=== PATIENT | female | born 1950 | race Caucasian/White ===

== ENCOUNTER 2019-11-06 16:13 | Emergency (ER) | payer MEDICARE, MEDICAID, SELFPAY ==
[2019-11-06 17:03] VITALS: BP 117/72; PULSE 82; RESP 12; TEMP 37.2; O2SAT 97; BMI 28.3
--- NOTE | 2019-11-06 17:10 | XRR_ITS ---
PROCEDURE INFORMATION: Exam: XR Right Hand Exam date and time: 11/06/2019 5:47 PM Age: 69 years old Clinical indication: Injury or trauma; Fall; Initial encounter; Swelling (edema); Hand; Bilateral TECHNIQUE: Imaging protocol: XR Right hand. Views: 3 or more views. COMPARISON: No relevant prior studies available. FINDINGS: Bones/joints: Normal. Soft tissues: Normal. XR/XR hand RT min 3V* [id number] IMPRESSION: No acute findings.
--- NOTE | 2019-11-06 20:07 | ED_ITS ---
HPI - General Adult General: Chief complaint: General Medical Stated complaint: hand swollen, med refill Time Seen by Provider: 11/06/19 19:59 Source: patient Mode of arrival: ambulatory Limitations: no limitations History of Present Illness: HPI narrative: 69 year old female presents to the emergency department for evaluation of right hand swelling and pain. 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 About 2 weeks ago she therefore had a seizure and since then has had her right hand swollen and painful. She came in here for evaluation of that and a refill of her medications. Associated symptoms: Deny dyspnea, headache(s), nausea, rash, palpitations or vomiting Review of Systems General: Reports: 10 or more systems reviewed and unremarkable except in HPI and below Const: Denies: fever(s), chills or body aches Card: Denies: palpitations, irregular heart rhythm, edema or swelling of feet/ankles Resp: Denies: dyspnea, productive cough or non-productive cough GI: Denies: abdominal pain, nausea or vomiting : Denies: flank pain, difficulty voiding, dysuria, urinary frequency, urinary urgency or urinary hesitancy Musc: Reports: extremity pain and other (Right hand pain and swelling) Skin/Breast: Denies: rash, pruritus or erythema Neuro: Denies: headache(s), numbness in extremities or weakness in extremities Endo: Denies: polyuria, polydipsia or tired all the time PFS ED PFSH: Social History (Reviewed 11/06/19 @ 21:55 by Romina Contreras MD, [facility]) Smoking and tobacco status: current every day smoker Physical Exam Const: COMMON NORMALS: no acute distress, average body habitus, patient oriented x3, no limitations, healthy appearing, alert and well nourished HENMT: COMMON NORMALS: normocephalic, atraumatic and moist oral mucous membranes HEAD & SCALP: normocephalic and atraumatic Neck/C-Spine: COMMON NORMALS: no meningeal signs and no JVD Resp: COMMON NORMALS: normal respiratory effort, No retractions, No use of accessory muscles, clear to auscultation bilaterally and percussion normal AUSCULTATION: clear to auscultation bilaterally PERCUSSION: percussion normal Cardio: COMMON NORMALS: no JVD, regular rate, regular rhythm, S1 normal heart sound present, S2 normal heart sound present, No gallops present (Cardio), No clicks present (Cardio), No murmurs present (Cardio), No rub (Cardio) and Peripheral pulses 2+ throughout RATE: regular rate RHYTHM: regular rhythm HEART SOUNDS: S1 normal heart sound present and S2 normal heart sound present PERIPHERAL PULSES: Peripheral pulses 2+ throughout GI: COMMON NORMALS: Normal to inspection, nondistended, normoactive bowel sounds present, Soft to palpation, non-tender, No hepatosplenomegaly present, no masses and no bruits PALPATION: Yes Soft to palpation and Yes No hepatosplenomegaly present : COMMON NORMALS: Yes no CVA tenderness BLADDER/KIDNEY EXAM: Yes no CVA tenderness Back/Pelvis: COMMON NORMALS: no CVA tenderness Extremity: COMMON NORMALS: normal to inspection, full ROM, capillary refill normal, no calf tenderness and no pedal edema RIGHT UPPER EXTREMITY: Yes hand & digits Right hand and digits: Yes inspection (Right hand swollen on the dorsal surface with some old bruising and tenderness noted. She has full range of motion of her hand and fingers.) and Yes neurovascular exam (Two-point discrimination intact. Neurovascular status normal.) Neuro: COMMON NORMALS: patient oriented x3 SENSORIUM/ORIENTATION: Yes alert MENINGEAL SIGNS: Yes no meningeal signs Skin: COMMON NORMALS: no rashes or lesions noted, no wounds, turgor normal, no jaundice, no petechiae and no mottling GENERAL SKIN EXAM: no rashes or lesions noted and turgor normal Course Vital Signs: Vital signs: Vital Signs Temperature 98.1 F 11/06/19 20:46 Pulse Rate 84 11/06/19 20:46 Respiratory Rate 18 11/06/19 20:46 Blood Pressure 146/81 11/06/19 20:46 Pulse Oximetry 97 11/06/19 17:03 MDM - General Adult MDM Narrative: Medical decision making narrative: 69-year-old female patient who presents to the emergency department for evaluation of right hand pain and swelling that happened after a seizure 2 weeks ago. She has a history of posttraumatic seizure for several decades and it is well controlled with pheno nette, however she has been out of her medications and that caused the seizures. X-ray of her right hand was negative for fracture or dislocation and she is sent home with a splint. Antiepileptic and antihypertensive medication were filled. She was also given a few days supply of pain medication due to the amount of swelling and pain in her right hand. Medical Records: Attestation: I reviewed the patient's medical records. Imaging Data^: Xray Ortho: Radiologist's impression: [address] [place] [address] XRay Report Signed Patient: Jae Russell #: [id number] : 8Acct#:[id number] Age/Sex: 69 / FADM Date: 11/06/19 Loc: ERRoom/Bed: Attending Dr: Ordering Provider/Ordering MD: Romina Contreras MD, [facility] Date of Service: 11/06/19 Procedure(s): XR hand RT min 3V* [id number] Accession Number(s): [id number] Report Number: [id number] PROCEDURE INFORMATION: Exam: XR Right Hand Exam date and time: 11/06/2019 5:47 PM Age: 69 years old Clinical indication: Injury or trauma; Fall; Initial encounter; Swelling (edema); Hand; Bilateral TECHNIQUE: Imaging protocol: XR Right hand. Views: 3 or more views. COMPARISON: No relevant prior studies available. FINDINGS: Bones/joints: Normal. Soft tissues: Normal. XR/XR hand RT min 3V* [id number] IMPRESSION: No acute findings. Dictated By:Hank Wilcox MD Signed By:Hank Wilcox MDSigned Date/Time:11/06/191821 DD/ 19 Discharge Plan Discharge Patient Disposition: Home, Self-Care Clinical Impression: Seizure disorder, Essential hypertension Hand sprain Qualifiers: Encounter type: initial encounter Laterality: right Qualified Code(s): S63.91XA - Sprain of unspecified part of right wrist and hand, initial encounter Condition: Stable Prescriptions: New phenobarbital 97.2 mg tablet 48.6 mg PO BID Qty: 60 RF: 0 Bevier 5-325 mg tablet 1 tab PO Q8H PRN (Reason: pain) Qty: 14 RF: 0 clonidine HCl 0.1 mg tablet 0.1 mg PO TID Qty: 90 RF: 0 Discharge Orders: Discharge Order (Routine); Ordered 11/06/19 Ordered By: Romina Contreras Patient Instructions: Hand Sprain (ED), Hypertension (ED), Seizures Activity Restrictions/Additional Instructions: Return for any new or worsening symptoms. Use the splint as needed to reduce swelling. Elevate your hand to reduce swelling. Take ibuprofen as needed for pain or swelling. Use the pain medicine as needed for severe pain. Follow-up with your primary care provider within 1 week. Discharge Date/Time: 11/06/19 21:07 Coding Level of Care Code ED Diving Judge for Sienna Mckeon
[2019-11-06] MEDS: PHENobarbital 32.4 mg Tablet 97.2 MG PO (20:38)
[2019-11-06] MEDS: HYDROcodone-acetaminophen 5-325 mg Tablet 1 TAB PO (20:45)
[2019-11-06 20:46] VITALS: BP 146/81; PULSE 84; RESP 18; TEMP 36.7
== END 2019-11-06 21:07 | disposition home or self-care (01) ==
PROVIDERS: Emergency Provider Family Medicine
DX: S63.91XA Sprain of unspecified part of right wrist and hand, initial encounter (principal); I10 Essential (primary) hypertension; G40.909 Epilepsy, unspecified, not intractable, without status epilepticus; X58.XXXA Exposure to other specified factors, initial encounter; F17.210 Nicotine dependence, cigarettes, uncomplicated
CPT/HCPCS: 12345; 29125; 73130; 99281; 99283

== ENCOUNTER 2019-11-08 18:26 | Inpatient (IN) | payer MEDICARE, MEDICAID, SELFPAY ==
[2019-11-08] VITALS (56 sets, daily range): BP systolic 75–131; BP diastolic 45–65; PULSE 66–94; RESP 12–31; TEMP 36.9; O2SAT 71–98; BMI 31.8
--- NOTE | 2019-11-08 18:38 | ECG_ITS ---
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 Measurements Intervals [place] Rate: 66 P: 65 [place]: 170 QRS: -30 QRSD: 135 T: -4 QT: 426 QTc: 449 Interpretive Statements SINUS RHYTHM BORDERLINE LEFT AXIS DEVIATION [QRS AXIS < -20] RIGHT BUNDLE BRANCH BLOCK [120+ ms QRS DURATION, UPRIGHT V1, 40+ ms S IN I/aVL/V4/V5/V6] VOLTAGE CRITERIA FOR LVH [MEETS CRITERIA IN ONE OF: R(aVL), S(V1), R(V5), R(V5/V6)+S(V1)] No previous ECG available for comparison Electronically Signed On 11-09-2019 9:39:28 CDT by Navneet Cronin M.D. [id number] f
--- NOTE | 2019-11-08 18:39 | XR_ITS ---
WS: [id number] CHEST XRAY TECHNIQUE: Portable chest. CLINICAL INFORMATION: overdose COMPARISON: None. FINDINGS: Heart: Normal cardiac silhouette. Lungs: Small left pleural effusion. Elevation left hemidiaphragm with volume loss left lower lobe. Le ft basilar infiltrate/atelectasis. Bones: Chronic healed right rib fractures. Surgical clips at the GE junction. XR/XR chest 1V portable [id number] IMPRESSION: 1. Small left pleural effusion with left lower lobe infiltrate/atelectasis. Vo lume loss left lower lobe. 2. Right lung is well aerated.
[2019-11-08] MEDS: sodium chloride 0.9% 1,000 ML 999 ML IV ×2 (18:40→20:30)
--- NOTE | 2019-11-08 18:51 | W.ED.OVERDOS ---
HPI - Overdose General: Chief Complaint: Overdose Stated Complaint: OVERDOSE Time Seen by Provider: 11/08/19 18:31 History of Present Illness: HPI Narrative: Patient is a 69 year old female patient presenting with an overdose of her medications. She reports that she took pills - too many - she says. At first she can tell me when she took them and then she told me yesterday. She has 2 prescription bottles, 1 for phenobarbital, 97.2 mg tablets. There were 60 prescribed and 26 tablets are missing. She also had a prescription bottle for clonidine 0.1 mg tablets. The prescription was for 90 and 23 of those are missing. The prescriptions were given from the ER yesterday and she was not discharged here until after 9 PM. Presumably she could not have filled the prescriptions any earlier than this morning. EMS reports that she is staying at the [facility]. It is not known to me how her overdose came to the attention of EMS. The patient states that she took the pills because she feels terrible about having seizures. She had a head injury in the past and her seizures are presumably posttraumatic. She is very argumentative and angry and will not provide me with any straight answers. There is also a small bottle of ibuprofen tablets which is empty. Per the ER chart from yesterday she presented with hand pain and swelling after having had a seizure. At that time she told the doctor she been without her phenobarbital for at least 2 weeks. Review of Systems General: Reports: ROS unobtainable due to mental status [facility] ED PFSH: Medical History Seizure disorder Surgical History H/O: hysterectomy S/P breast lumpectomy Family History Denies family history of Lung disease Hypertension Social History Smoking and tobacco status: heavy tobacco smoker cigarettes [ Other cigarette details: 1 pack/day ] Alcohol intake: never Substance/Drug Use: never Household members: spouse Housing: House Physical Exam Const: EXAM LIMITATIONS: behavioral limitations GENERAL APPEARANCE: disheveled ORIENTATION/CONSCIOUSNESS: Yes awake and Yes Other orientation findings (Uncooperative) HENMT: HEAD & SCALP: other (Deformity to the right temporal area consistent with prior head injury and surgery.) Eye: GENERAL EYE: appearance normal, both eyes and all related structures Neck/C-Spine: COMMON NORMALS: supple, no meningeal signs and no JVD Chest: COMMONS NORMALS: normal inspection of the chest Resp: COMMON NORMALS: normal respiratory effort, No use of accessory muscles and clear to auscultation bilaterally AUSCULTATION: clear to auscultation bilaterally Cardio: COMMON NORMALS: no JVD, regular rate, regular rhythm and No murmurs present (Cardio) RATE: regular rate RHYTHM: regular rhythm GI: COMMON NORMALS: Normal to inspection, nondistended, normoactive bowel sounds present, Soft to palpation and non-tender INSPECTION: Yes normal to inspection AUSCULTATION: Yes normoactive bowel sounds PALPATION: Yes Soft to palpation Back/Pelvis: COMMON NORMALS: thoracic and lumbar spine normal to inspection Extremity: GENERAL: Yes normal exam except as noted RIGHT UPPER EXTREMITY: Yes hand & digits (Swelling and tenderness) Neuro: MENINGEAL SIGNS: Yes no meningeal signs SPEECH: speech normal Psych: APPEARANCE: Yes disheveled ATTITUDE: Yes Belligerent attititude/behavior present MOOD & AFFECT: Yes irritable and Yes hostile affect THOUGHT CONTENT: Yes Suicidality present Skin: COMMON NORMALS: no rashes or lesions noted and turgor normal GENERAL SKIN EXAM: no rashes or lesions noted and turgor normal Course ED course: Patient remained fairly asymptomatic while in the ED. She did never become sedated. Her blood pressure was soft at times in the 90s. This would respond to fluids and came up to 1 10-1 20. It dropped again into the 90s and she was given another liter of fluid. For consultation with poison control they recommended fluids and then dopamine for refractory hypotension or bradycardia. Her heart rate has remained normal in the 70s. She was agitated and irate and did not want to stay in the hospital. Due to her irrational behavior and suicidal ideation I put her on a 96-hour hold and will admit her to the hospitalist to the ICU. Vital Signs: Vital signs: Vital Signs Temperature 98.4 F 11/08/19 23:33 Pulse Rate 81 11/09/19 12:00 Respiratory Rate 16 11/09/19 12:00 Blood Pressure 131/73 11/09/19 12:00 Pulse Oximetry 95 11/09/19 08:00 MDM - Overdose Lab Data: Labs: Lab Results 11/08/19 11/08/19 11/08/19 Range/Units 18:34 18:34 19:05 WBC 9.8 (4.0-10.0) 10^3/ uL RBC 3.10 L (4.1-5.3) 10^6/u L Hgb 10.1 L (11.5-15.3) g/dL Hct 31.6 L (37.0-47.0) % MCV 101.9 H (81-99) fL MCH 32.6 (28.0-34.0) pg MCHC 32.0 (30.0-36.0) g/dL RDW 18.1 H (12.1-15.1) % Plt Count 330 (130-400) 10^3/c mm MPV 10.9 H (7.4-10.4) fL Neut % (Auto) 44.2 % Lymph % (Auto) 32.2 % [place] % (Auto) 18.6 % Eos % (Auto) 4.2 % Baso % (Auto) 0.4 % Neut # (Auto) 4.3 (1.8-7.7) 10^3/u L Lymph # (Auto) 3.2 (0.8-4.8) 10^3/u L [place] # (Auto) 1.8 H (0.2-0.9) 10^3/u L Eos # (Auto) 0.4 (0.0-0.8) 10^3/u L Baso # (Auto) 0.0 (0.0-0.1) 10^3/u L Nucleated RBC % (a uto) 0 % Nucleated RBCs # 0.0 /100WBC Specimen Type Arterial Sample Site Radial, left ABG pH 7.35 (7.35-7.45) ABG pCO2 37.4 (35-45) mmHg ABG pO2 87.3 (80.0-100.0) mmH g ABG HCO3 20.7 L (22-26) mmol/L ABG Base Excess -4.5 L (-2.0-2.0) mmol/ L Brenden Test Pos Hematocrit 27.6 L (37-47) % O2 Delivery Device Nc O2 Liters/Min 1.0 % Mail Clerks Supervisor ID [email or web address] Sodium (136-145) mmol/L Potassium (3.5-5.1) mmol/L Chloride (98-107) mmol/L Carbon Dioxide (22-29) mmol/L Anion Gap (5-19) BUN (8-23) mg/dL Creatinine (0.5-0.9) mg/dL Glucose (65-115) mg/dL Calculated Osmolal ity (285-295) mOsm/k g Lactate 1.1 (0.5-2.2) mmol/L Calcium (8.5-10.5) mg/dL Total Bilirubin (0.15-1.2) mg/dL AST (0-32) U/L ALT (0-33) U/L Alkaline Phosphata se (35-105) IU/L Total Protein (6.6-8.7) g/dL Albumin (3.5-5.2) g/dL Globulin (1.3-4.6) g/dL Vitamin B12 (232-1245) pg/mL Folate (4.8-37.3) ng/mL Urine Color (Yellow) Urine Appearance (CLEAR) Urine pH (5-7) Ur Specific Gravit y (1.005-1.030) Urine Protein (Negative) Urine Glucose (UA) (Normal) Urine Ketones (Negative) Urine Blood (Negative) Urine Nitrate (Negative) Urine Bilirubin (NEGATIVE) Urine Urobilinogen (Negative) mg/dL Ur Leukocyte Stacey ase (Negative) Urine RBC (0-2) /hpf Urine WBC (0-5) /hpf Ur Squamous Epith Cells (0-5) Amorphous Sediment Urine Bacteria (NONE) Hyaline Casts Urine Mucus Salicylates (3-10) mg/dL Urine Opiates Scre en (Negative) ng/mL Acetaminophen (10-30) ug/mL Ur Barbiturates Sc reen (Negative) ng/mL Ur Phencyclidine S crn (Negative) ng/mL Ur Amphetamines Sc reen (Negative) ng/mL U Benzodiazepines Scrn (Negative) ng/mL Urine Cocaine Scre en (Negative) ng/mL U Marijuana (THC) Screen (Negative) ng/mL Ethyl Alcohol (0-10) mg/dL 11/08/19 11/08/19 11/08/19 Range/Units 19:05 19:05 19:05 WBC (4.0-10.0) 10^3/ uL RBC (4.1-5.3) 10^6/u L Hgb (11.5-15.3) g/dL Hct (37.0-47.0) % MCV (81-99) fL MCH (28.0-34.0) pg MCHC (30.0-36.0) g/dL RDW (12.1-15.1) % Plt Count (130-400) 10^3/c mm MPV (7.4-10.4) fL Neut % (Auto) % Lymph % (Auto) % [place] % (Auto) % Eos % (Auto) % Baso % (Auto) % Neut # (Auto) (1.8-7.7) 10^3/u L Lymph # (Auto) (0.8-4.8) 10^3/u L [place] # (Auto) (0.2-0.9) 10^3/u L Eos # (Auto) (0.0-0.8) 10^3/u L Baso # (Auto) (0.0-0.1) 10^3/u L Nucleated RBC % (a uto) % Nucleated RBCs # /100WBC Specimen Type Sample Site ABG pH (7.35-7.45) ABG pCO2 (35-45) mmHg ABG pO2 (80.0-100.0) mmH g ABG HCO3 (22-26) mmol/L ABG Base Excess (-2.0-2.0) mmol/ L Brenden Test Hematocrit (37-47) % O2 Delivery Device O2 Liters/Min % Mail Clerks Supervisor ID Sodium 139 (136-145) mmol/L Potassium 4.5 (3.5-5.1) mmol/L Chloride 108 H (98-107) mmol/L Carbon Dioxide 19 L (22-29) mmol/L Anion Gap 16.5 (5-19) BUN 24 H (8-23) mg/dL Creatinine 0.5 (0.5-0.9) mg/dL Glucose 90 (65-115) mg/dL Calculated Osmolal ity 284 L (285-295) mOsm/k g Lactate (0.5-2.2) mmol/L Calcium 8.8 (8.5-10.5) mg/dL Total Bilirubin 0.2 (0.15-1.2) mg/dL AST 16 (0-32) U/L ALT 13 (0-33) U/L Alkaline Phosphata se 119 H (35-105) IU/L Total Protein 5.8 L (6.6-8.7) g/dL Albumin 2.9 L (3.5-5.2) g/dL Globulin 2.9 (1.3-4.6) g/dL Vitamin B12 239 (232-1245) pg/mL Folate 11.0 (4.8-37.3) ng/mL Urine Color (Yellow) Urine Appearance (CLEAR) Urine pH (5-7) Ur Specific Gravit y (1.005-1.030) Urine Protein (Negative) Urine Glucose (UA) (Normal) Urine Ketones (Negative) Urine Blood (Negative) Urine Nitrate (Negative) Urine Bilirubin (NEGATIVE) Urine Urobilinogen (Negative) mg/dL Ur Leukocyte Stacey ase (Negative) Urine RBC (0-2) /hpf Urine WBC (0-5) /hpf Ur Squamous Epith Cells (0-5) Amorphous Sediment Urine Bacteria (NONE) Hyaline Casts Urine Mucus Salicylates < 0.3 L (3-10) mg/dL Urine Opiates Scre en (Negative) ng/mL Acetaminophen < 5.0 L (10-30) ug/mL Ur Barbiturates Sc reen (Negative) ng/mL Ur Phencyclidine S crn (Negative) ng/mL Ur Amphetamines Sc reen (Negative) ng/mL U Benzodiazepines Scrn (Negative) ng/mL Urine Cocaine Scre en (Negative) ng/mL U Marijuana (THC) Screen (Negative) ng/mL Ethyl Alcohol < 10 (0-10) mg/dL 11/08/19 11/08/19 Range/Units 19:53 19:53 WBC (4.0-10.0) 10^3/ uL RBC (4.1-5.3) 10^6/u L Hgb (11.5-15.3) g/dL Hct (37.0-47.0) % MCV (81-99) fL MCH (28.0-34.0) pg MCHC (30.0-36.0) g/dL RDW (12.1-15.1) % Plt Count (130-400) 10^3/c mm MPV (7.4-10.4) fL Neut % (Auto) % Lymph % (Auto) % [place] % (Auto) % Eos % (Auto) % Baso % (Auto) % Neut # (Auto) (1.8-7.7) 10^3/u L Lymph # (Auto) (0.8-4.8) 10^3/u L [place] # (Auto) (0.2-0.9) 10^3/u L Eos # (Auto) (0.0-0.8) 10^3/u L Baso # (Auto) (0.0-0.1) 10^3/u L Nucleated RBC % (a uto) % Nucleated RBCs # /100WBC Specimen Type Sample Site ABG pH (7.35-7.45) ABG pCO2 (35-45) mmHg ABG pO2 (80.0-100.0) mmH g ABG HCO3 (22-26) mmol/L ABG Base Excess (-2.0-2.0) mmol/ L Brenden Test Hematocrit (37-47) % O2 Delivery Device O2 Liters/Min % Mail Clerks Supervisor ID Sodium (136-145) mmol/L Potassium (3.5-5.1) mmol/L Chloride (98-107) mmol/L Carbon Dioxide (22-29) mmol/L Anion Gap (5-19) BUN (8-23) mg/dL Creatinine (0.5-0.9) mg/dL Glucose (65-115) mg/dL Calculated Osmolal ity (285-295) mOsm/k g Lactate (0.5-2.2) mmol/L Calcium (8.5-10.5) mg/dL Total Bilirubin (0.15-1.2) mg/dL AST (0-32) U/L ALT (0-33) U/L Alkaline Phosphata se (35-105) IU/L Total Protein (6.6-8.7) g/dL Albumin (3.5-5.2) g/dL Globulin (1.3-4.6) g/dL Vitamin B12 (232-1245) pg/mL Folate (4.8-37.3) ng/mL Urine Color Straw (Yellow) Urine Appearance Sl hazy (CLEAR) Urine pH 5 (5-7) Ur Specific Gravit y 1.020 (1.005-1.030) Urine Protein Neg (Negative) Urine Glucose (UA) Norm (Normal) Urine Ketones Negative (Negative) Urine Blood Neg (Negative) Urine Nitrate Negative (Negative) Urine Bilirubin Neg (NEGATIVE) Urine Urobilinogen Norm (Negative) mg/dL Ur Leukocyte Stacey ase 1+ H (Negative) Urine RBC 0-4 H (0-2) /hpf Urine WBC 5-10 H (0-5) /hpf Ur Squamous Epith Cells 15-25 H (0-5) Amorphous Sediment Not Reportable Urine Bacteria 2+ H (NONE) Hyaline Casts 0-4 H Urine Mucus Trace Salicylates (3-10) mg/dL Urine Opiates Scre en Negative (Negative) ng/mL Acetaminophen (10-30) ug/mL Ur Barbiturates Sc reen Positive H (Negative) ng/mL Ur Phencyclidine S crn Negative (Negative) ng/mL Ur Amphetamines Sc reen Negative (Negative) ng/mL U Benzodiazepines Scrn Negative (Negative) ng/mL Urine Cocaine Scre en Negative (Negative) ng/mL U Marijuana (THC) Screen Negative (Negative) ng/mL Ethyl Alcohol (0-10) mg/dL Discharge Plan Discharge Admit Provider: Sterling Denise Discharge Date/Time: 11/08/19 22:38 Coding Level of Care Code ED [employer] for [employer] Fwd Exam Comprehensive
[2019-11-08 18:53] LABS: Basophils % 0.4 %; Eosinophils # 0.4 10^3/uL (0.0-0.8); Eosinophils % 4.2 %; Hematocrit 31.6 % (37.0-47.0); Hemoglobin 10.1 g/dL (11.5-15.3); Lymphocytes # 3.2 10^3/uL (0.8-4.8); Lymphocytes % 32.2 %; Mean Corpuscular Hemoglobin 32.6 pg (28.0-34.0); Mean Corpuscular Volume 101.9 fL (81-99); Mean Platelet Volume 10.9 fL (7.4-10.4); Monocytes # 1.8 10^3/uL (0.2-0.9); Monocytes % 18.6 %; Neutrophils # 4.3 10^3/uL (1.8-7.7); Neutrophils % 44.2 %; Nucleated Red Blood Cells % 0 %; Platelet Count 330 10^3/cmm (130-400); Red Cell Distribution Width 18.1 % (12.1-15.1); White Blood Count 9.8 10^3/uL (4.0-10.0)
[2019-11-08 19:04] LABS: Lactate (Lactic Acid level) 1.1 mmol/L (0.5-2.2)
--- NOTE | 2019-11-08 19:06 | PC.NURSE ---
Report received from ENOC Vasquez and care transferred to ENOC Hansen
[2019-11-08 19:13] LABS: ABG PCO2 37.4 mmHg (35-45); ABG PH Result 7.35 (7.35-7.45); Arterial Blood Gas Hematocrit 27.6 % (37-47); Base Excess ABG -4.5 mmol/L (-2.0-2.0); Blood Gas Allen Test Pos; Blood Gas Sample Site Radial, left; Blood Gas Sample Type Arterial; HCO3 ABG 20.7 mmol/L (22-26); Oxygen Device NC; PO2 ABG 87.3 mmHg (80.0-100.0)
[2019-11-08 19:38] LABS: Alanine Aminotransferase 13 U/L (0-33); Albumin Level 2.9 g/dL (3.5-5.2); Alkaline Phosphatase 119 IU/L (35-105); Anion Gap 16.5 (5-19); Blood Urea Nitrogen 24 mg/dL (8-23); Calcium 8.8 mg/dL (8.5-10.5); Carbon Dioxide 19 mmol/L (22-29); Chloride 108 mmol/L (98-107); Globulin 2.9 g/dL (1.3-4.6); Glucose 90 mg/dL (65-115); Osmolality Calculated 284 mOsm/kg (285-295); Potassium 4.5 mmol/L (3.5-5.1); Sodium 139 mmol/L (136-145); Total Bilirubin 0.2 mg/dL (0.15-1.2); Total Protein 5.8 g/dL (6.6-8.7)
[2019-11-08 19:44] LABS: Acetaminophen < 5.0 ug/mL (10-30); Alcohol Level < 10 mg/dL (0-10); Aspartate Amino Transferase 16 U/L (0-32); Salicylate < 0.3 mg/dL (3-10)
--- NOTE | 2019-11-08 19:55 | PC.NURSE ---
patient offered jello or pudding per approval by HCP when requesting for food. Patient refused food options offered by nurse.
[2019-11-08 20:16] LABS: Amphetamines Screen Urine Negative (Negative); Barbiturates Screen Urine Positive (Negative); Benzodiazepines Screen Urine Negative (Negative); Cocaine Screen Urine Negative (Negative); Opiate Screen Urine Negative (Negative); PCP Screen Urine Negative (Negative); THC Screen Urine Negative (Negative)
[2019-11-08 20:17] LABS: Add Urine Microscopic? YES; Bilirubin Urine Neg (NEGATIVE); Blood Urine Neg (Negative); Glucose Urine UA Norm (Normal); Ketones Urine Negative (Negative); Leukocyte Esterase Urine 1+ (Negative); Nitrate Urine Negative (Negative); Protein Urine Neg (Negative); Urine Appearance SL Hazy (CLEAR); Urine Color Straw (Yellow); Urobilinogen Urine Norm (Negative); pH Urine 5 (5-7)
[2019-11-08 20:19] LABS: RBC Urine 0-4 /hpf (0-2); Squamous Epithelial Cell Urine 15-25 (0-5)
[2019-11-08 20:20] LABS: Add Urine Culture? No; Bacteria Urine 2+; Hyaline Casts Urine 0-4; Mucus Urine TRACE
[2019-11-08] MEDS: ziprasidone 20 mg/mL SDV 10 MG IM (20:30)
--- NOTE | 2019-11-08 20:37 | PC.NURSE ---
update given to Aiyana @ poison control
--- NOTE | 2019-11-08 20:55 | P.HP_ITS ---
Providers/Chief Complaint Chief Complaint: OVERDOSE History of Present Illness Dian Russell is a 69 year old female who has history of seizure was brought in by EMS after drug overdose at home. Patient is stating that she has not been taking any antiepileptic medications for quite a while, lately she experienced 6 grand mal seizures at home, she was very frustrated about her medical problems and in order to end her life she took 26 tablets of phenobarbital and 23 tablets of clonidine. She is not a good historian, she is not cooperating to give us more information. At the time of my evaluation she is not complaining of any new pain, no active seizures, her blood pressure is 129 systolic and heart rate ranging between 65 to 70s. Initially in the ER she was hypotensive and was given normal saline. Poison control recommended fluid resuscitation and use of dopamine if needed be cause of clonidine use. He received a dose of ziprasidone in the ER for hyperactive delirium. Diagnostic work-up did not reveal any acute remarkable abnormality other than macrocytic anemia, do not have previous hemoglobin to compare her baseline. No previous information in old records as well Review of Systems Const: Reports: chills and fatigue; Denies: fever(s) or body aches Eyes: Denies: change in vision ENMT: Denies: throat pain Card: Denies: chest pain Resp: Denies: dyspnea GI: Denies: abdominal pain : Denies: flank pain Musc: Denies: neck pain Skin/Breast: Denies: rash Neuro: Denies: headache(s) Psych: Reports: anxiety, depression, mood swings and suicidal ideation Endo: Denies: polyuria Talat/Lymph: Denies: easy bruising All/Imm: Denies: urticaria Medications/Allergies Home Medications Medication Instructions Recorded Confirmed Last Taken Type clonidine HCl 0.1 mg PO TID #90 tab 11/06/19 Unknown Rx hydrocodone-acetaminophen [[place]] 1 tab PO Q8H PRN #14 tab 11/06/19 Unknown Rx phenobarbital 48.6 mg PO BID #60 tab 11/06/19 Unknown Rx Allergies Allergy/AdvReac Type Severity Reaction Status Date / Time carbamazepine [From Tegretol] Allergy Unknown Verified 11/06/19 17:02 levetiracetam [From Keppra] Allergy Unknown Verified 11/06/19 17:02 phenytoin [From Dilantin] Allergy Unknown Verified 11/06/19 17:02 PFSH Acute PFSH: Medical History Seizure disorder Surgical History H/O: hysterectomy S/P breast lumpectomy Family History Denies family history of Lung disease Hypertension Social History Smoking and tobacco status: heavy tobacco smoker cigarettes [ Other cigarette details: 1 pack/day ] Alcohol intake: never Substance/Drug Use: never Household members: spouse Housing: House Vitals/I&O/Wt Last Vital Signs Pulse 68 11/08/19 20:30 Resp 18 11/08/19 20:30 BP 108/54 11/08/19 20:30 Pulse Ox 95 11/08/19 19:51 11/08/19 11/08/19 11/08/19 06:59 14:59 22:59 Intake Total 1000 / 1000 Balance 1000 / 1000 Weight last 48 hrs Weight 81.647 kg Physical Exam Narrative: EXAM NARRATIVE: Head to toe examination Depressed right temporal skull area No active seizure Not cooperating for physical exam and interview She has multiple bruises all over her extremities No active bleeding The lacerations around her knees S1, S2 no signs of heart failure or bradycardia Abdomen deep palpation elicits tenderness however soft without signs of peritonitis Lower extremity multiple bruises has good strength She is not cooperating for interview but able to follow my commands and answer few of my questions, moving all of her extremities, did not notice facial asymmetry Wearing a splint on her right wrist Data : 11/08/19 18:34 11/08/19 19:05 A&P Assessment and plan (1) Suicide attempt: Status: Acute (2) Drug overdose: Status: Acute (3) Essential hypertension: Status: Acute (4) Hand sprain: Status: Acute Qualifiers: Encounter type: initial encounter Laterality: right Qualified Code(s): S63.91XA - Sprain of unspecified part of right wrist and hand, initial encounter Additional A&P Information Drug overdose/suicide attempt To clonidine and phenobarb Drug screen positive for barbiturates Currently hemodynamically stable Would use dopamine if needed Currently no active seizures Patient endorsing suicidal attempt, 96-hour hold, able to protect airways, alert oriented x3 Cardiac diet Psych consult once she is medically cleared in the morning Anemia, macrocytic We will check B12 level No active bleeding noted Has multiple bruises all over her extremities Hypertension: Currently she is normotensive She has not allowed me to examine her hand, she is waiting a wrist splint Full code DVT prophylaxis Lovenox 96-hour hold Attestations Medical Necessity Statement*: anticipating stay in the hospital cross more than 2 midnights for drug overdose Time Spent in Patient Care: (>than 50% of time spent in counselling and/or direct pt care on unit) . 40mins Coding Level of Care Code Acute Dining Service Inspector for Sienna Mckeon Diagnoses Suicide attempt T14.91XA Drug overdose T50.901A Essential hypertension I10 Hand sprain S63.91XA Encounter type: initial encounter Laterality: right
[2019-11-08] MEDS: enoxaparin 40 mg/0.4 mL Syringe SUBCUT (23:22)
[2019-11-08] MEDS: sodium chloride 0.9% 1,000 ML 75 ML IV (23:22)
[2019-11-09] VITALS (83 sets, daily range): BP systolic 77–171; BP diastolic 32–88; PULSE 61–96; RESP 12–38; TEMP 37; O2SAT 85–97
[2019-11-09] MEDS: DOPamine drip 400 MG/250 ML PREMIX 15.3 MG IV (00:05)
[2019-11-09 02:57] LABS: Vitamin B12 239 pg/mL (232-1245)
[2019-11-09] MEDS: LORazepam 2 mg/mL INJ 1 mL 1 MG IVP ×3 (03:42→16:05)
[2019-11-09 09:18] LABS: Basophils % 0.3 %; Eosinophils # 0.5 10^3/uL (0.0-0.8); Eosinophils % 4.3 %; Hematocrit 31.8 % (37.0-47.0); Hemoglobin 10.1 g/dL (11.5-15.3); Lymphocytes # 2.2 10^3/uL (0.8-4.8); Lymphocytes % 21.1 %; Mean Corpuscular HGB Conc 31.8 g/dL (30.0-36.0); Mean Corpuscular Hemoglobin 32.8 pg (28.0-34.0); Mean Corpuscular Volume 103.2 fL (81-99); Mean Platelet Volume 10.5 fL (7.4-10.4); Neutrophils # 5.8 10^3/uL (1.8-7.7); Nucleated Red Blood Cells % 0 %; Platelet Count 345 10^3/cmm (130-400); Red Blood Count 3.08 10^6/uL (4.1-5.3); White Blood Count 10.5 10^3/uL (4.0-10.0)
[2019-11-09 09:28] LABS: Alanine Aminotransferase 12 U/L (0-33); Albumin Level 3.6 g/dL (3.5-5.2); Alkaline Phosphatase 132 IU/L (35-105); Anion Gap 13.7 (5-19); Aspartate Amino Transferase 14 U/L (0-32); Blood Urea Nitrogen 11 mg/dL (8-23); Carbon Dioxide 21 mmol/L (22-29); Chloride 111 mmol/L (98-107); Globulin 2.8 g/dL (1.3-4.6); Glucose 135 mg/dL (65-115); Osmolality Calculated 292 mOsm/kg (285-295); Potassium 3.7 mmol/L (3.5-5.1); Sodium 142 mmol/L (136-145); Total Bilirubin 0.2 mg/dL (0.15-1.2); Total Protein 6.4 g/dL (6.6-8.7)
--- NOTE | 2019-11-09 09:32 | PC.NURSE ---
patient mood upon first assessment with patient this AM approximate 0715, patient is pleasant, cooperative, and oriented to person, year, birthdate, and president. At rounding at 0800, patient is slightly more agitated stating she wants to go outside to smoke, educated patient on [facility] being a smoke free facility, and being unable to leave ICU, she appears irritated at this. At 0900 rounding, she states she wants to speak to administration about going outside, informed patient we would let the doctor know of her concerns about wanting to smoke, and that he would be in to round shortly.
[2019-11-09] MEDS: sodium chloride 0.9% 1,000 ML 75 ML IV (11:54)
--- NOTE | 2019-11-09 16:13 | CTR_ITS ---
PROCEDURE INFORMATION: Exam: CT Head Without Contrast Exam date and time: 11/09/2019 4:14 PM Age: 69 years old Clinical indication: Altered mental status/memory loss; Prior surgery; Additional info: AMS TECHNIQUE: Imaging protocol: Computed tomography of the head without contrast. Radiation optimization: All CT scans at this facility use at least one of these dose optimization techniques: automated exposure control; mA and/or kV adjustment per patient size (includes targeted exams where dose is matched to clinical indication); or iterative reconstruction. COMPARISON: No relevant prior studies available. RADIATION DOSE METRICS: Total DLP (mGy-cm): 688.61 FINDINGS: Brain: There is encephalomalacia of the right temporal/parietal lobes, left occipital lobe and posterior medial left parietal lobe. There is no acute hemorrhage, edema or mass effect. Ventricles: Normal. No ventriculomegaly. Bones/joints: Extensive postoperative changes are noted in the calvarium. No acute bony abnormality. Sinuses: There is a mucous retention cyst in the left maxillary sinus. No air-fluid levels in the sinuses. Mastoid air cells: Visualized mastoid air cells are well aerated. Soft tissues: Unremarkable. CT/CT head wo con* [id number] IMPRESSION: Encephalomalacia and postoperative changes. No acute abnormality. Radiation Dose CTDIVOL = (mGy): DLP = 688.61 (mGy-cm)
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
[2019-11-09] MEDS: piperacillin-tazobactam 3.375 GM in sodium chloride 0.9% (plus) 50 ML IV (17:26)
[2019-11-09] MEDS: haloperidol inj 5 mg/mL INJ 1 mL 1 MG IM (20:42)
[2019-11-09] MEDS: enoxaparin 40 mg/0.4 mL Syringe SUBCUT (22:58)
[2019-11-10] VITALS (12 sets, daily range): BP systolic 84–142; BP diastolic 46–91; PULSE 72–86; RESP 18–24; TEMP 36.7–37; O2SAT 97–100
[2019-11-10] MEDS: piperacillin-tazobactam 3.375 GM in sodium chloride 0.9% (plus) 50 ML IV ×4 (02:04→22:05)
[2019-11-10] MEDS: LORazepam 2 mg/mL INJ 1 mL 1 MG IVP (02:11)
[2019-11-10 04:01] LABS: Basophils % 0.3 %; Eosinophils # 0.4 10^3/uL (0.0-0.8); Eosinophils % 3.8 %; Hematocrit 32.5 % (37.0-47.0); Hemoglobin 10.1 g/dL (11.5-15.3); Lymphocytes # 2.4 10^3/uL (0.8-4.8); Lymphocytes % 22.5 %; Mean Corpuscular HGB Conc 31.1 g/dL (30.0-36.0); Mean Corpuscular Hemoglobin 31.7 pg (28.0-34.0); Mean Corpuscular Volume 101.9 fL (81-99); Mean Platelet Volume 11.4 fL (7.4-10.4); Monocytes # 1.9 10^3/uL (0.2-0.9); Monocytes % 18.2 %; Neutrophils # 5.8 10^3/uL (1.8-7.7); Neutrophils % 54.9 %; Nucleated Red Blood Cells % 0 %; Platelet Count 355 10^3/cmm (130-400); Red Blood Count 3.19 10^6/uL (4.1-5.3); Red Cell Distribution Width 17.6 % (12.1-15.1); White Blood Count 10.5 10^3/uL (4.0-10.0)
[2019-11-10] MEDS: haloperidol inj 5 mg/mL INJ 1 mL 1 MG IM (04:13)
[2019-11-10 04:17] LABS: Alanine Aminotransferase 12 U/L (0-33); Albumin Level 3.7 g/dL (3.5-5.2); Alkaline Phosphatase 132 IU/L (35-105); Anion Gap 15.8 (5-19); Aspartate Amino Transferase 17 U/L (0-32); Blood Urea Nitrogen 10 mg/dL (8-23); Calcium 9.6 mg/dL (8.5-10.5); Carbon Dioxide 21 mmol/L (22-29); Chloride 108 mmol/L (98-107); Globulin 2.9 g/dL (1.3-4.6); Glucose 121 mg/dL (65-115); Osmolality Calculated 289 mOsm/kg (285-295); Potassium 3.8 mmol/L (3.5-5.1); Sodium 141 mmol/L (136-145); Total Bilirubin 0.2 mg/dL (0.15-1.2); Total Protein 6.6 g/dL (6.6-8.7)
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
[2019-11-10] MEDS: sodium chloride 0.9% 1,000 ML 75 ML IV (13:03)
[2019-11-10] MEDS: ibuprofen 600 mg Tablet PO (15:50)
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
--- NOTE | 2019-11-10 18:38 | PC.NURSE ---
transfer Patient taken to room 272 via wheelchair. Patient tolerated well. Alecia Anderson RN with patient.
[2019-11-11] VITALS: BP 127/79; PULSE 93; RESP 20; TEMP 36.6; O2SAT 93
[2019-11-11] MEDS: enoxaparin 40 mg/0.4 mL Syringe SUBCUT ×2 (00:25→22:56)
[2019-11-11 03:59] VITALS: BP 108/66; PULSE 79; RESP 18; TEMP 36.8; O2SAT 93
[2019-11-11] MEDS: sodium chloride 0.9% 1,000 ML 75 ML IV (04:13)
[2019-11-11 05:14] LABS: Basophils % 0.3 %; Eosinophils # 0.4 10^3/uL (0.0-0.8); Eosinophils % 4.5 %; Hematocrit 28.9 % (37.0-47.0); Hemoglobin 9.2 g/dL (11.5-15.3); Lymphocytes # 2.4 10^3/uL (0.8-4.8); Mean Corpuscular HGB Conc 31.8 g/dL (30.0-36.0); Mean Corpuscular Hemoglobin 32.3 pg (28.0-34.0); Mean Corpuscular Volume 101.4 fL (81-99); Mean Platelet Volume 10.4 fL (7.4-10.4); Monocytes # 1.9 10^3/uL (0.2-0.9); Monocytes % 21.1 %; Neutrophils # 4.1 10^3/uL (1.8-7.7); Neutrophils % 46.8 %; Nucleated Red Blood Cells % 0 %; Platelet Count 355 10^3/cmm (130-400); Red Blood Count 2.85 10^6/uL (4.1-5.3); Red Cell Distribution Width 17.8 % (12.1-15.1); White Blood Count 8.8 10^3/uL (4.0-10.0)
[2019-11-11 05:32] LABS: Alanine Aminotransferase 10 U/L (0-33); Albumin Level 3.2 g/dL (3.5-5.2); Alkaline Phosphatase 112 IU/L (35-105); Aspartate Amino Transferase 12 U/L (0-32); Blood Urea Nitrogen 12 mg/dL (8-23); Calcium 9.1 mg/dL (8.5-10.5); Carbon Dioxide 23 mmol/L (22-29); Chloride 111 mmol/L (98-107); Globulin 2.5 g/dL (1.3-4.6); Glucose 94 mg/dL (65-115); Osmolality Calculated 292 mOsm/kg (285-295); Sodium 143 mmol/L (136-145); Total Bilirubin 0.2 mg/dL (0.15-1.2); Total Protein 5.7 g/dL (6.6-8.7)
--- NOTE | 2019-11-11 07:08 | PC.NURSE ---
Shift Summary Patient was agitated at the beginning of the shift. Patients IV began to leak and ooze so catheter was removed and in tact. This nurse attempted to insert an IV catheter to which was not successful. Patient became very angry and started yelling and screaming saying I will not being getting another IV . This nurse kindly spoke to the patient and educated the patient on the need for an IV while in the hospital. This nurse gave the patient some time to cool down and relax and spoke with the patient on the need of an IV. The patient agreed to allow one more attempt. Dr. Martínez from ER came up with the ultrasound and was successful in inserting an IV. Patient was calm for the remainder of the night and rested well.
[2019-11-11 08:00] VITALS: BP 129/80; PULSE 70; RESP 18; TEMP 37; O2SAT 98
[2019-11-11 12:00] VITALS: BP 124/69; PULSE 78; RESP 14; TEMP 37.2; O2SAT 95
--- NOTE | 2019-11-11 12:49 | PM.PN ---
Subjective Subjective: Interval history: She is feeling all right. Denies any complaints at this time other than aching in her right wrist. Request for some aspirin for it. Then when we are talking about phenobarbital, she reports that she had 2 seizures here last night. It appears she may be confused as there is absolutely no report of seizures recorded, and no reported by nursing staff or the one-to-one sitter. The only record from overnight details that she declined having her IV replaced. Vitals/I&O/Wt Last Vital Signs Temp 98.9 F 11/11/19 12:00 Pulse 78 11/11/19 12:00 Resp 14 11/11/19 12:00 BP 124/69 11/11/19 12:00 Pulse Ox 95 11/11/19 12:00 11/10/19 11/11/19 11/11/19 22:59 06:59 14:59 Intake Total 50 / 100 1000 / 1100 530 / 530 Output Total 1225 / 1225 Balance 50 / 100 -225 / -125 530 / 530 Physical Exam Const: COMMON NORMALS: no acute distress GENERAL APPEARANCE: anxious and lethargic NUTRITIONAL APPEARANCE: overweight ORIENTATION/CONSCIOUSNESS: Yes oriented to person, Yes oriented to time and Yes lethargic; not oriented to place OTHER: Today she is more appropriate Remembers she is in the hospital. Does not remember what town we are in. Says that she remembers speaking with me but does not remember my name. HENMT: COMMON NORMALS: oropharynx normal Neck/C-Spine: COMMON NORMALS: no JVD Resp: COMMON NORMALS: normal respiratory effort and clear to auscultation bilaterally AUSCULTATION: clear to auscultation bilaterally Cardio: COMMON NORMALS: no JVD, regular rhythm, S1 normal heart sound present, S2 normal heart sound present and No murmurs present (Cardio) RHYTHM: regular rhythm HEART SOUNDS: S1 normal heart sound present and S2 normal heart sound present GI: COMMON NORMALS: Normal to inspection, nondistended, normoactive bowel sounds present, Soft to palpation and non-tender PALPATION: Yes Soft to palpation Extremity: COMMON NORMALS: no joint enlargement and no pedal edema Neuro: COMMON NORMALS: moves all extremities SENSORIUM/ORIENTATION: Yes oriented to person, No oriented to place, Yes oriented to time and Yes lethargic Skin: COMMON NORMALS: no rashes or lesions noted GENERAL SKIN EXAM: no rashes or lesions noted Data : 11/11/19 05:00 11/11/19 05:00 A&P Assessment and plan (1) Acute encephalopathy: Gradually improving. Today she is much more appropriate. She does not remember the name of the town she is on, but does know she is in the hospital. She does not remember the events preceding her overdose. She denies having severe depression recently. It appears that she does have some memory issues. She repeats again that she is here due to her wrist, she says that she fell down recently in a similar facility , which from her we know happened in [place] after a seizure, although she is not able to provide these details. Per discussion with psychiatry once medically cleared she may be able to return [facility] her with outpatient follow-up with [facility]. Status: Acute (2) Suicide attempt: Phenobarbital level is coming down. Still elevated at 35.6 currently. Continue to monitor for now. Tomorrow if back to normal range, perhaps may be able to restart phenobarbital the day after. Weaned off dopamine. Blood pressures appear to be better. Reportedly has been very depressed per discussion with [facility] staff and her . Appreciate psychiatric assessment and recommendations with regards to further management of severe depression, possibly related also to TBI. Status: Acute (3) Drug overdose: Phenobarbital and clonidine. One-to-one sitter due to intermittent episodes of confusion. Recheck phenobarbital level in the morning. Status: Acute (4) Essential hypertension: Blood pressures soft. Monitor. Monitor for any rebound hypertension while off clonidine. Status: Acute (5) Hand sprain: states she injured her hand well after falling while having a seizure in [place]. No fracture noted on x-ray. For now symptomatic management. Add Tylenol. Status: Acute Qualifiers: Encounter type: initial encounter Laterality: right Qualified Code(s): S63.91XA - Sprain of unspecified part of right wrist and hand, initial encounter (6) Pneumonia: Suspected pneumonia, with suspected aspiration. She states that her breathing is all right. Has been on Zosyn, but lost her IV and declines to have another one replaced. As she has been oxygenating well, without signs of sepsis we will go ahead and switch her to Augmentin. Status: Acute Additional A&P Information Seizure disorder: Appears not optimally controlled. Appears she has not been taken medications for a long time, and subsequently took a very large dose. For now monitor. Maintain seizure precautions. Resume phenobarbital once approaching normal levels. Would benefit from outpatient neurology follow-up. She states that she intends on following up in the office. Anemia, macrocytic: Absolutely denies drug use or alcohol. Vitamin B12 is normal. Multiple bruises all over her extremities Attestations Medical Necessity Statement*: Continue admission for assessment of management following drug overdose, pneumonia, disposition arrangements. Coding Level of Care Code Acute Director Of Tax Services for [facility] Fwd Exam Comprehensive Diagnoses Acute encephalopathy G93.40 Suicide attempt T14.91XA Drug overdose T50.901A Essential hypertension I10 Hand sprain S63.91XA Encounter type: initial encounter Laterality: right Pneumonia J18.9
--- NOTE | 2019-11-11 13:40 | PC.SOCIAL ---
[facility] Page 2 of [facility] explained to patient. She has a 1:1 sitter at this time, but does state she is at [facility] and provides her name and . She states she understands she has the right to appeal discharge. Patient's right arm/hand is swollen and she cannot sign. Initialed, dated, and timed and placed in chart. Copy provided to patient.
[2019-11-11] MEDS: ibuprofen 600 mg Tablet PO ×2 (14:25→20:33)
[2019-11-11] MEDS: amoxicillin-clav 875-125 mg Tablet 1 TAB PO (14:26)
[2019-11-11 16:00] VITALS: BP 144/80; PULSE 117; RESP 18; TEMP 36.4; O2SAT 91
[2019-11-11 20:00] VITALS: BP 127/75; PULSE 81; RESP 17; TEMP 36.8; O2SAT 94
[2019-11-11] MEDS: acetaminophen 325 mg Tablet 650 MG PO (23:03)
[2019-11-12] VITALS: BP 105/64; PULSE 77; RESP 18; TEMP 36.6; O2SAT 96
[2019-11-12] MEDS: ibuprofen 600 mg Tablet PO ×2 (02:31→12:04)
[2019-11-12] MEDS: amoxicillin-clav 875-125 mg Tablet 1 TAB PO ×2 (02:31→13:43)
--- NOTE | 2019-11-12 02:34 | PC.NURSE ---
Patient has been complaining of pain in her right hand. This nurse has noticed an increase in swelling. Ibuprofen was administered as prescribed and iced was placed on the patients hand.
[2019-11-12 04:00] VITALS: BP 129/76; PULSE 74; RESP 17; TEMP 36.8; O2SAT 95
[2019-11-12 06:00] LABS: Basophils # 0.1 10^3/uL (0.0-0.1); Basophils % 0.7 %; Eosinophils # 0.4 10^3/uL (0.0-0.8); Eosinophils % 4.9 %; Hematocrit 28.2 % (37.0-47.0); Hemoglobin 8.8 g/dL (11.5-15.3); Lymphocytes # 2.8 10^3/uL (0.8-4.8); Lymphocytes % 36.3 %; Mean Corpuscular HGB Conc 31.2 g/dL (30.0-36.0); Mean Corpuscular Hemoglobin 32.4 pg (28.0-34.0); Mean Corpuscular Volume 103.7 fL (81-99); Mean Platelet Volume 11.2 fL (7.4-10.4); Monocytes # 1.5 10^3/uL (0.2-0.9); Monocytes % 19.5 %; Neutrophils % 38.5 %; Nucleated Red Blood Cells % 0 %; Platelet Count 355 10^3/cmm (130-400); Red Blood Count 2.72 10^6/uL (4.1-5.3); White Blood Count 7.7 10^3/uL (4.0-10.0)
[2019-11-12 06:30] LABS: Alanine Aminotransferase 11 U/L (0-33); Alkaline Phosphatase 113 IU/L (35-105); Anion Gap 13.1 (5-19); Aspartate Amino Transferase 13 U/L (0-32); Blood Urea Nitrogen 15 mg/dL (8-23); Calcium 9.2 mg/dL (8.5-10.5); Carbon Dioxide 22 mmol/L (22-29); Chloride 109 mmol/L (98-107); Globulin 2.6 g/dL (1.3-4.6); Glucose 95 mg/dL (65-115); Osmolality Calculated 286 mOsm/kg (285-295); Potassium 4.1 mmol/L (3.5-5.1); Sodium 140 mmol/L (136-145); Total Bilirubin 0.2 mg/dL (0.15-1.2); Total Protein 5.6 g/dL (6.6-8.7)
[2019-11-12] MEDS: acetaminophen 325 mg Tablet 650 MG PO (07:34)
[2019-11-12 07:57] VITALS: BP 154/80; PULSE 73; RESP 18; TEMP 36.7; O2SAT 97
--- NOTE | 2019-11-12 10:54 | PC.CHAP ---
Pastoral Care Encounter/Spiritual Assessment Type of Contact [] Declined cuff turner machine operator visit [] Patient/Family/Request visit [] Outpatient visit [] Follow-up visit [] Physician referral [] Code/Alert [x] Routine visit [] Staff referral [] Actively dying [] Patient sleeping [] Family support [] [] Out of room [] Palliative care [] [] Receiving care in room [] Pre-surgical visit [] Trauma [] Long length of stay [] ICU visit [] Other: Relational/Emotional Strength [x] Patient feels connected with others/family/visitors/staff [] Distress [] Loneliness/isolation [] Abandonment Spirituality of Patient [x] Person of Elisha [] Attends Mu-Ism of their Elisha [] Believes in Prayer [] Reads Bible or Yarsanism materials [] There are Spiritual issues to be addressed Sba Underwriter Interventions [x] Prayer [x] Active listening [x] Non-anxious presence [x] Spiritual/emotional support [] Crisis/trauma care [] Spiritual counseling [] Bereavement support [] Provided bereavement packet [] Provided Bible/devotional materials [] Provided toy/stuffed animal, coloring book to patient or family member [] Provided Communion [] Anointing/Bishop [] Salvation [x] Completed spiritual assessment [] Other: Impact on Illness or Injury [] Angry [] Fearful [] Anxious [] Often cries [] Exhaustion [] Unable to work [] Unable to attend voodoo [] Unable to walk/stand [] Unable to read [] Unable to drive [] Unable to eat/drink [] Unable to sleep [] Unable to be with family [] Patient intubated [x] Other: Summary Time spent with patient 5 minutes
[2019-11-12 11:15] VITALS: BP 116/76; PULSE 62; RESP 18; TEMP 36.4; O2SAT 100
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
[2019-11-12 15:42] VITALS: BP 143/80; PULSE 71; RESP 18; TEMP 37.1; O2SAT 93
--- NOTE | 2019-11-12 16:20 | P.DS_ITS ---
Discharge Providers Date of Admission: 11/08/19 20:57 Date of Discharge: November 12, 2019 Attending Provider at Admission: Sterling Denise MD Attending Provider at Discharge: Roderick Allen Diagnoses at Discharge Discharge Diagnosis (1) Acute encephalopathy: Status: Acute (2) Suicide attempt: Status: Acute (3) Drug overdose: Status: Acute (4) Essential hypertension: Status: Acute (5) Hand sprain: Status: Acute Qualifiers: Encounter type: initial encounter Laterality: right Qualified Code(s): S63.91XA - Sprain of unspecified part of right wrist and hand, initial encounter (6) Pneumonia: Status: Acute Reason for Visit Reason for Visit: OVERDOSE Hospital Course Hospital Course: Pleasant 69-year-old lady with history of TBI, seizure disor radha, having recently arrived in [place], currently staying at [facility] with her , recently having difficult time with breakthrough seizures for which she takes phenobarbital, was admitted for assessment of management after overdose with phenobarbital and clonidine. Noted with acute encephalopathy on presentation, with hypotension initially which improved. Was monitored in intensive care unit, and assessed by psychiatry. Her mental status gradually improved. She later states that she has been having issues controlling her seizures and took too many medications due to this reason. There has been some concern for depression, however, and so she will be referred for additional assessment at [facility]. She is also referred to neurology for follow up of the seizure disorder. Her is service connected and they were advised to to obtain documentation of her connection to the so that they may apply for housing. During her admission her mental status gradually significantly improved. Initially confused, with very labile affect, this has resolved, and was likely related to phenobarbital overdose. Blood pressures have remained stable. Clonidine is discontinued at this time as blood pressures remain at goal. Phenobarbital level eventually trended down to therapeutic at 28.5. The medication will be resumed tomorrow. She states that she will exercise at most caution with further medication intake. She states that she will be mindful of any symptoms of worsening depression, and will seek help immediately. Her 96- hour hold has been rescinded, and there are no additional recommendations prior to discharge by psychiatry at this time. She was treated with Zosyn for pneumonia suspected due to aspiration with altered mental status on presentation. She will complete treatment with Augmentin. She saturating well on room air, and has been ambulating without any shortness of breath. She is incidentally noted to have anemia, hemoglobin 8.8. Follow-up level will be requested. Hemoccult is requested as well. Please follow-up on outpatient side regarding this, as well as mild elevation of alkaline phosphatase. Physical Exam Const: COMMON NORMALS: no acute distress and patient oriented x3 OTHER: She is alert, with good insight, pleasant, conversant. She is feeling well. Requesting to be discharged so she may see her . HENMT: COMMON NORMALS: oropharynx normal Neck/C-Spine: COMMON NORMALS: no JVD Resp: COMMON NORMALS: normal respiratory effort and clear to auscultation bilaterally AUSCULTATION: clear to auscultation bilaterally Cardio: COMMON NORMALS: no JVD, regular rhythm, S1 normal heart sound present, S2 normal heart sound present and No murmurs present (Cardio) RHYTHM: regular rhythm HEART SOUNDS: S1 normal heart sound present and S2 normal heart sound present GI: COMMON NORMALS: Normal to inspection, nondistended, normoactive bowel sounds present, Soft to palpation and non-tender PALPATION: Yes Soft to palpation Extremity: COMMON NORMALS: no joint enlargement and no pedal edema Neuro: COMMON NORMALS: patient oriented x3 and moves all extremities Skin: COMMON NORMALS: no rashes or lesions noted GENERAL SKIN EXAM: no rashes or lesions noted Discharge Data Data Completed and Pending: Completed Studies During Hospitalization Category Date Time Status CT head wo con* 7 0450 Routine Cat Scan 11/09/19 16:13 Completed XR chest 1V cody ble 15993 Stat Exams 11/08/19 18:39 Completed Pending at discharge Category Date Time Status Phenobarbital Rou kaleb Lab 11/12/19 14:46 Received Labs from last 24 hours 11/12/19 11/12/19 05:20 05:20 WBC 7.7 RBC 2.72 L Hgb 8.8 L Hct 28.2 L MCV 103.7 H MCH 32.4 MCHC 31.2 RDW 18.0 H Plt Count 355 MPV 11.2 H Neut % (Auto) 38.5 Lymph % (Auto) 36.3 Swift % (Auto) 19.5 Eos % (Auto) 4.9 Baso % (Auto) 0.7 Neut # (Auto) 3.0 Lymph # (Auto) 2.8 Swift # (Auto) 1.5 H Eos # (Auto) 0.4 Baso # (Auto) 0.1 Nucleated RBC % (a uto) 0 Nucleated RBCs # 0.0 Sodium 140 Potassium 4.1 Chloride 109 H Carbon Dioxide 22 Anion Gap 13.1 BUN 15 Creatinine 0.4 L Glucose 95 Calculated Osmolal ity 286 Calcium 9.2 Total Bilirubin 0.2 AST 13 ALT 11 Alkaline Phosphata se 113 H Total Protein 5.6 L Albumin 3.0 L Globulin 2.6 Vitals: Last Vital Signs Temp 98.7 F 11/12/19 15:42 Pulse 71 11/12/19 15:42 Resp 18 11/12/19 15:42 BP 143/80 11/12/19 15:42 Pulse Ox 93 11/12/19 15:42 Discharge Plan Discharge Patient Disposition: Home, Self-Care Condition: Stable Prescriptions: New Augmentin 875-125 mg tablet 1 tab PO BID Qty: 10 RF: 0 Continued phenobarbital 97.2 mg tablet 48.6 mg PO BID Qty: 60 RF: 0 Discontinued clonidine HCl 0.1 mg tablet 0.1 mg PO TID Qty: 90 RF: 0 Discharge Orders: Discharge Order (Routine); Ordered 11/12/19 Ordered By: Roderick Allen Other Ambulatory Orders: Complete Blood Count w/Auto (Routine) Timeframe: 3 Days Location: Determined by Patient Ordered By: Roderick Allen Immunochemical Fecal OCB (Routine) Timeframe: 3 Days Facility: [facility] - Location: Lab - Main Lab Ordered By: Roderick Allen Phenobarbital (Routine) Timeframe: 1 Week Facility: [facility] - Location: Lab - Main Lab Ordered By: Roderick Allen Referrals: [facility] [Provider Group] - 1 week (Depression) Isabel Gonzalez MD [Physician] - 1 week (Seizures, Hx TBI) Shar Alas MD [Hospitalist] - 11/26/19 10:30 am (Your appointment is at: [address] ) Discharge Diet: Cardiac Discharge Activity: Increase activity as tolerated Patient Instructions: Suicide Prevention for Adults (DC), Altered Mental Status (GEN) Activity Restrictions/Additional Instructions: Strict fall precautions. Seizure precautions. Please keep medications in a safe place due to overdose. If you experience any symptoms of worsening depression, any thoughts of self-harm, please express the systems possible, and seek medical attention without delay. Please follow up with behavioral health and follow recommendations as discussed with psychiatry. Please set up and follow with neurology for seizure disorder. Please seek documentation of service to allow application for housing for you and your . Discharge Attestations Time Spent in Discharge Care*: greater than 30 min Quality Metrics Clinical Quality Measures During this hospital stay, did patient experience: None Coding Level of Care Code Acute Databases Computer Consultant for [facility] Fwd Exam Comprehensive Diagnoses Acute encephalopathy G93.40 Suicide attempt T14.91XA Drug overdose T50.901A Essential hypertension I10 Hand sprain S63.91XA Encounter type: initial encounter Laterality: right Pneumonia J18.9
[2019-11-12 16:51] VITALS: BP 143/80; PULSE 71; RESP 18; TEMP 37.1; O2SAT 93
== END 2019-11-12 17:27 | disposition home or self-care (01) | DRG 917 ==
LOC: ER 18:55 → ICU 22:02 → MEDSURG 11-10 18:26
PROVIDERS: Emergency Medicine; Admitting Provider Internal Medicine; Visit Provider Internal Medicine
DX: T42.3X2A Poisoning by barbiturates, intentional self-harm, initial encounter (principal); J18.9 Pneumonia, unspecified organism; G92 Toxic encephalopathy; T46.5X2A Poisoning by other antihypertensive drugs, intentional self-harm, initial encounter; Y92.009 Unspecified place in unspecified non-institutional (private) residence as the place of occurrence of the external cause; Z87.820 Personal history of traumatic brain injury; G40.909 Epilepsy, unspecified, not intractable, without status epilepticus; S63.91XA Sprain of unspecified part of right wrist and hand, initial encounter; F17.210 Nicotine dependence, cigarettes, uncomplicated; D53.9 Nutritional anemia, unspecified; I10 Essential (primary) hypertension; W19.XXXA Unspecified fall, initial encounter; Z59.0 Homelessness
CPT/HCPCS: 12345; 29125; 36415; 36600; 70450; 71045; 73130; 80053; 80184; 80306; 80307; 81001; 82607; 82746; 82803; 83605; 85025; 93005; 96372; 96375; 99281; 99283; 99284; J1265; J1630; J1650; J2060; J2543; J3486; J7030

== ENCOUNTER 2019-11-27 10:53 | Outpatient (CLI) | payer MEDICARE, SELFPAY ==
--- NOTE | 2019-11-27 11:30 | XRR_ITS ---
PROCEDURE INFORMATION: Exam: XR Right Knee Exam date and time: 11/27/2019 11:18 AM Age: 69 years old Clinical indication: Pain; Right; Prior surgery; Surgery date: 6+ months; Surgery type: Multiple knee operations, including bracing, injections, shots; Additional info: Right knee pain TECHNIQUE: Imaging protocol: XR Right knee. Views: Frontal, lateral, and oblique views. COMPARISON: No relevant prior studies available. FINDINGS: Bones/joints: Moderately severe medial compartment predominate narrowing with moderate articular sclerosis. Medial compartment medial marginal lipping. No lateral subluxation of the tibia. Mild varus alignment. Medial and lateral meniscal chondrocalcinosis. Small knee joint effusion. Soft tissues: Normal. Vasculature: Vascular calcifications are present. XR/XR knee RT 3V* [id number] IMPRESSION: 1. Medial compartment predominant primary osteoarthritis. 2. Medial and lateral meniscal chondrocalcinosis. 3. Small knee joint effusion.
== END 2019-11-27 10:54 | disposition home or self-care (01) ==
LOC: RAD 10:55
PROVIDERS: Visit Provider Family Medicine
DX: M17.11 Unilateral primary osteoarthritis, right knee (principal); M11.261 Other chondrocalcinosis, right knee; M25.461 Effusion, right knee
CPT/HCPCS: 73562

== ENCOUNTER 2019-11-28 12:30 | Inpatient (IN) | payer MEDICARE, SELFPAY ==
[2019-11-28] VITALS (18 sets, daily range): BP systolic 101–169; BP diastolic 51–109; PULSE 66–90; RESP 12–25; TEMP 21–36.8; O2SAT 92–100; BMI 23.0
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
--- NOTE | 2019-11-28 13:06 | XRR_ITS ---
PROCEDURE INFORMATION: Exam: XR Chest, 1 View Exam date and time: 11/28/2019 1:08 PM Age: 69 years old Clinical indication: Cough; Additional info: Dyspnea/cough TECHNIQUE: Imaging protocol: XR of the chest Views: 1 view. COMPARISON: CR XR chest 1V portable [id number] 11/08/2019 7:07 PM FINDINGS: Lungs: Low lung volumes seen. The lungs are otherwise clear No consolidation. Pleural space: Unremarkable. No pleural effusion. No pneumothorax. Heart/Mediastinum: Unremarkable. No cardiomegaly. Bones/joints: Unremarkable. Metallic surgical clips seen in the epigastric region. XR/XR chest 1V portable [id number] IMPRESSION: Low lung volumes No acute findings. Metallic surgical clips epigastric tissues
--- NOTE | 2019-11-28 13:06 | CTR_ITS ---
PROCEDURE INFORMATION: Exam: CT Head Without Contrast Exam date and time: 11/28/2019 1:44 PM Age: 69 years old Clinical indication: Injury or trauma; Initial encounter; Blunt trauma (contusions or hematomas); Consciousness not specified; Prior surgery; Surgery date: 6+ months; Surgery type: Fall - hematoma R eyebrow - ? od; Additional info: Fall, AMS TECHNIQUE: Imaging protocol: Computed tomography of the head without contrast. Radiation optimization: All CT scans at this facility use at least one of these dose optimization techniques: automated exposure control; mA and/or kV adjustment per patient size (includes targeted exams where dose is matched to clinical indication); or iterative reconstruction. COMPARISON: CT head wo con* [id number] 11/09/2019 6:03 PM RADIATION DOSE METRICS: Total DLP (mGy-cm): 1494.18 FINDINGS: Brain: Moderate white matter disease and volume loss are identified. There is no acute infarct or edema. There is encephalomalacia in the right temporal and left parietal occipital lobe. No hemorrhage. Ventricles: Normal. No ventriculomegaly. Bones/joints: There has been bilateral craniotomy. Sinuses: Visualized sinuses are unremarkable. No fluid levels. Mastoid air cells: Visualized mastoid air cells are well aerated. Soft tissues: Unremarkable. CT/CT head wo con* [id number] IMPRESSION: There are no acute concerning abnormalities. Radiation Dose CTDIVOL = (mGy): DLP = 1494.18 (mGy-cm)
[2019-11-28 13:36] LABS: Add Urine Microscopic? YES; Bilirubin Urine Neg (NEGATIVE); Blood Urine 2+ (Negative); Glucose Urine UA Norm (Normal); Ketones Urine Negative (Negative); Leukocyte Esterase Urine 2+ (Negative); Nitrate Urine Positive (Negative); Protein Urine Neg (Negative); Urine Appearance Hazy (CLEAR); Urine Color Yellow (Yellow); Urobilinogen Urine Norm (Negative); pH Urine 5 (5-7)
[2019-11-28 13:40] LABS: RBC Urine 15-25 /hpf (0-2); WBC Urine TOO NUMEROUS TO CNT /hpf (0-5)
[2019-11-28 13:41] LABS: Add Urine Culture? Yes; Bacteria Urine 2+; Squamous Epithelial Cell Urine 0-4 (0-5)
[2019-11-28] MEDS: cefTRIAXone 1,000 MG in sodium chloride 0.9% (plus) 50 ML 100 MG IV (15:46)
[2019-11-28 15:54] LABS: Basophils # 0.1 10^3/uL (0.0-0.1); Basophils % 0.6 %; Eosinophils % 9.5 %; Hematocrit 34.7 % (37.0-47.0); Hemoglobin 10.7 g/dL (11.5-15.3); Lymphocytes # 3.4 10^3/uL (0.8-4.8); Lymphocytes % 32.1 %; Mean Corpuscular HGB Conc 30.8 g/dL (30.0-36.0); Mean Corpuscular Hemoglobin 31.7 pg (28.0-34.0); Mean Corpuscular Volume 102.7 fL (81-99); Mean Platelet Volume 11.7 fL (7.4-10.4); Monocytes # 1.4 10^3/uL (0.2-0.9); Monocytes % 13.5 %; Neutrophils # 4.62 10^3/uL (1.8-7.7); Nucleated Red Blood Cells % 0 %; Platelet Count 358 10^3/cmm (130-400); Red Blood Count 3.38 10^6/uL (4.1-5.3); Red Cell Distribution Width 17.5 % (12.1-15.1); White Blood Count 10.5 10^3/uL (4.0-10.0)
[2019-11-28 16:32] LABS: Alanine Aminotransferase 13 U/L (0-33); Albumin Level 3.7 g/dL (3.5-5.2); Alkaline Phosphatase 141 IU/L (35-105); Aspartate Amino Transferase 15 U/L (0-32); Blood Urea Nitrogen 9 mg/dL (8-23); Calcium 9.2 mg/dL (8.5-10.5); Carbon Dioxide 20 mmol/L (22-29); Chloride 108 mmol/L (98-107); Creatine Phosphokinase 40 U/L (26-192); Globulin 2.9 g/dL (1.3-4.6); Glucose 91 mg/dL (65-115); Osmolality Calculated 280 mOsm/kg (285-295); Sodium 137 mmol/L (136-145); Total Bilirubin 0.2 mg/dL (0.15-1.2); Total Protein 6.6 g/dL (6.6-8.7)
[2019-11-28 16:34] LABS: Acetaminophen < 5.0 ug/mL (10-30); Alcohol Level < 10 mg/dL (0-10); Salicylate < 0.3 mg/dL (3-10)
[2019-11-28 16:35] LABS: Anion Gap 12.9 (5-19); Potassium 3.9 mmol/L (3.5-5.1)
--- NOTE | 2019-11-28 17:12 | P.HP_ITS ---
Providers/Chief Complaint Admitting Physician: Tanja Hein MD Primary Care Provider: Shar Alas MD Chief Complaint: HEAD LAC S/P FALL; POSS OVERDOSE History of Present Illness Dian Russell is a 69 year old female with PMHx of seizure disorder, TBI, PTSD, Anxiety/depression, presents to ED for evaluation of noted altered mental status. She was previously admitted to our facility earlier this month for similar symptoms had been discharged on Augmentin. During that admission there was noted suspicion that patient may be taking more than prescribed dose of phenobarbital which she takes for seizure disorder. Patient denies this during my assessment in the ER. She is almost delirious though is able to provide some history, speech is intermittently very difficult to understand as she intermittently slurs her words. She has tangential speech and is difficult to redirect during history taking. She describes having had a seizure last night that awakened her from sleep. She is very emotionally labile and when pushed for further details begins to cry. She reports living at a snf locally with her and is in the process of looking for affordable housing. 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 Again when pushed for details she is very tearful. She reports a history of frequent UTIs though does not like taking antibiotics as they do not make her feel good. She states she has been tried on multiple other antiepileptic medications including Dilantin, Keppra, Tegretol all of which cause persistent nausea and vomiting. She indicates that she was following up with a neurologist while living in [place]. I am unsure how well phenobarbital seems to be working in terms of controlling her seizures. Also reports a history of frequent falls particularly recently due to buckling and stiffness of her right knee. She otherwise ambulates independently though not very well. Work-up so far indicates mild leukocytosis with a white count of 10.5, hemoglobin of 10.7, normal electrolytes, normal renal function, ALP of 113 with otherwise normal LFTs. Urinalysis is indicative of infection with noted pyuria, hematuria, nitrates, leukocyte esterase. CT head is unremarkable for any acute findings, chest x-ray is also unremarkable. Phenobarbital level has resulted as greater than 77, salicylates and acetaminophen are negative, alcohol is negative as well. She had ready been referred to [facility] secondary to her underlying mental health issues. Had an x-ray done of her right knee yesterday by her primary care provider which shows osteoarthritic changes. Had been noted to be anemic during her last admission. She has received a dose of ceftriaxone. She does have a noted laceration right above her right eyebrow that has been sutured. She has some bruising on her right forehead as well. With her noted altered mental status, significantly elevated phenobarbital level she will be admitted to ICU for closer monitoring. Review of Systems Narrative: difficult to obtain due to patient's emotional lability, somewhat delirious demeanor ENMT: Reports: dry mouth GI: Denies: abdominal pain, nausea, vomiting, hematemesis or hematochezia : Reports: other (frequent UTIs); Denies: difficulty voiding, dysuria or hematuria Musc: Reports: other (R knee pain and buckling); Denies: back pain Skin/Breast: Denies: rash Neuro: Reports: difficulty walking, frequent falls, behavioral changes and seizure-like activity (last seizure was yesterday night) Psych: Reports: anxiety and hopelessness Medications/Allergies Home Medications Medication Instructions Recorded Confirmed Last Taken Type hydrocodone 5 mg-acetaminophen 325 1 tab PO Q24H PRN 30 Days #30 tab 11/26/19 Unknown Rx mg tablet pantoprazole 40 mg tablet,delayed 40 mg PO BID 30 Days #60 tab 11/26/19 11/28/19 Unknown Rx release phenobarbital 97.2 mg tablet 48.6 mg PO BID #60 tab 11/26/19 11/28/19 Unknown Rx sucralfate 1 gram tablet 1 gm PO BID 30 Days #60 tab 11/26/19 11/28/19 Unknown Rx Allergies Allergy/AdvReac Type Severity Reaction Status Date / Time carbamazepine [From Tegretol] Allergy ADR-Gastrointestinal Verified 11/28/19 17:12 Upset levetiracetam [From Keppra] Allergy ADR-Gastrointestinal Verified 11/28/19 17:12 Upset phenytoin [From Dilantin] Allergy ADR-Gastrointestinal Verified 11/28/19 17:12 Upset PFSH Acute PFSH: Medical History (Updated 11/28/19 @ 17:38 by Tanja Hein MD) Anemia Anxiety and depression GERD (gastroesophageal reflux disease) GI bleed Seizure disorder Stroke Traumatic brain injury Surgical History (Updated 11/28/19 @ 17:20 by Tanja Hein MD) H/O: hysterectomy History of right knee surgery S/P breast lumpectomy Family History Denies family history of Lung disease Hypertension Social History (Updated 11/28/19 @ 17:22 by Tanja Hein MD) Smoking and tobacco status: heavy tobacco smoker cigarettes [ Other cigarette details: 1 pack/day ] Alcohol intake: never Household members: spouse Housing: Homeless Marital status: Number of children: 2 Number of grandchildren: 6 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 Vitals/I&O/Wt Last Vital Signs Temp 98.2 F 11/28/19 12:37 Pulse 66 11/28/19 15:39 Resp 19 H 11/28/19 15:39 BP 128/67 11/28/19 15:39 Pulse Ox 97 11/28/19 15:39 Weight last 48 hrs Weight 58.967 kg Physical Exam Const: COMMON NORMALS: no acute distress GENERAL APPEARANCE: anxious NUTRITIONAL APPEARANCE: overweight ORIENTATION/CONSCIOUSNESS: Yes awake and Yes lethargic HENMT: COMMON NORMALS: normocephalic, atraumatic, hearing grossly normal bilaterally and moist oral mucous membranes HEAD & SCALP: normocephalic and atraumatic TEETH & GINGIVA: Yes edentulous OTHER: -Sutured laceration just above right eyebrow; noted bruising on right forehead, fading periorbital bruising around right eye Eye: COMMON NORMALS: Equal, round and reactive pupils present, EOMs intact bilaterally and conjunctivae normal CONJUNCTIVA: Yes conjunctivae normal PUPIL: Yes Equal, round and reactive pupils present Neck/C-Spine: COMMON NORMALS: full ROM GENERAL: Yes normal visual inspection and Yes trachea midline Resp: COMMON NORMALS: normal respiratory effort, No retractions, No use of accessory muscles and clear to auscultation bilaterally EFFORT & INSPECTION: Yes able to speak in complete sentences, Yes symmetric chest movement and Yes tachypneic AUSCULTATION: clear to auscultation bilaterally OTHER: -on RA Cardio: COMMON NORMALS: regular rate, regular rhythm, S1 normal heart sound present, S2 normal heart sound present and No murmurs present (Cardio) RATE: regular rate RHYTHM: regular rhythm HEART SOUNDS: S1 normal heart sound present and S2 normal heart sound present GI: COMMON NORMALS: Normal to inspection, nondistended, normoactive bowel sounds present, Soft to palpation and non-tender INSPECTION: Yes central obesity PALPATION: Yes Soft to palpation Extremity: COMMON NORMALS: normal to inspection, full ROM and no clubbing, cyanosis or edema; negative for no pedal edema Neuro: COMMON NORMALS: moves all extremities, no focal motor deficits and no sensory deficits noted SENSORIUM/ORIENTATION: Yes somnolent SPEECH: Other neuro speech findings (intermittently slurred speech) Psych: APPEARANCE: Yes unkempt ACTIVITY/MOTOR BEHAVIOR: Yes fidgeting MOOD & AFFECT: Yes Labile affect present THOUGHT PROCESS: Tangential thought process present Skin: COMMON NORMALS: no rashes or lesions noted, no jaundice, no petechiae and no mottling GENERAL SKIN EXAM: no rashes or lesions noted and scars (linear scar on R patella (healed)) OTHER: -bruising on R forehead, R eyebrow laceration (sutured) and fading R periorbital bruising Data : 11/28/19 15:26 11/28/19 15:26 Micro: Microbiology 11/28/19 15:26 Blood Culture - Preliminary Blood SPECIMEN COLLECTED 11/28/19 15:26 Blood Culture - Preliminary Blood SPECIMEN COLLECTED A&P Assessment and plan (1) Phenobarbital toxicity: -Noted to have significantly elevated phenobarbital level (> 77) -Reports taking medication as prescribed though was admitted earlier this month with suspicion for having taken higher than prescribed doses of phenobarbital which she takes for history of seizure disorder -Patient reports inability to tolerate other antiepileptic medications including Keppra, Dilantin, Tegretol all of which caused persistent nausea and vomiting -Monitor phenobarbital levels daily until within therapeutic range; half-life elimination is about 79 hrs (3-4 days) -Requested ED to contact poison control -Patient is currently encephalopathic, behaves as if she is in drunken stupor -Strict fall precautions, seizure precautions -Hold phenobarbital -Ativan PRN for seizure-like activity -We will need neurology evaluation particularly in light of suspicion that patie nt is not taking phenobarbital as prescribed and due to need for alternative antiepileptic agent Status: Acute Qualifiers: Encounter type: initial encounter Injury intent: accidental or unintentional Qualified Code(s): T42.3X1A - Poisoning by barbiturates, accidental (unintentional), initial encounter (2) Acute metabolic encephalopathy: -Secondary to phenobarbital toxicity, component of encephalopathy secondary to acute UTI -Fall, aspiration, seizure precautions Status: Acute (3) UTI (urinary tract infection): -Per patient she is prone to frequent UTIs -UA indicative of infection with noted pyuria, bacteriuria, positive nitrates, hematuria -f/u urine and blood cx -Currently afebrile, noted mild leukocytosis Status: Acute Qualifiers: Urinary tract infection type: acute cystitis Hematuria presence: with hematuria Qualified Code(s): N30.01 - Acute cystitis with hematuria (4) Seizures: -Seizure precautions -Hold phenobarbital secondary to toxicity -Ativan PRN Status: Chronic (5) Traumatic brain injury: Status: Chronic Qualifiers: Encounter type: sequela Loss of consciousness presence/duration: without LOC Qualified Code(s): S06.9X0S - Unspecified intracranial injury without loss of consciousness, sequela (6) Anxiety and depression: -Has been referred to [facility] Status: Chronic (7) PTSD (post-traumatic stress disorder): Status: Chronic (8) Stroke: Status: Chronic Qualifiers: CVA mechanism: unspecified Qualified Code(s): I63.9 - Cerebral infarction, unspecified (9) Anemia: -Had been noted to be anemic during last admission, hemoglobin improved compared to discharge -Continue to monitor H&H -Current baseline hemoglobin appears to be around 10 -Given macrocytosis we will check folate and B12 levels; also order FOBT -has reported hx of prior GI bleed, resume PPI and carafate Status: Chronic Qualifiers: Anemia type: unspecified type Qualified Code(s): D64.9 - Anemia, unspecified (10) Physical deconditioning: -Has had frequent falls recently, describes what sounds like an ataxic gait -PT evaluation once mental status improved -Strict fall precautions, assistance with all out of bed activity -Reports that she falls due to buckling and instability of her right knee, has already been referred to Ortho. Recent knee x-ray done (11/27/19) showing primary OA, chondrocalcinosis -Would avoid narcotics due to noted altered mental status and risk of further respiratory depression. Would avoid tramadol due to risk of lowering seizure threshold. Would also avoid NSAIDs due to history of GI bleed and underlying anemia Status: Acute Additional A&P Information -Patient is currently living in snf with , verbal report that she may not be able to return to facility on discharge. In light of second admission with suspicion for overmedication, physical deconditioning, frequent falls will request case management consult for possible placement -Clear liquid diet for now due to acute encephalopathy, advance diet as tolerated based on clinical improvement -Inguinal intertrgo; nystatin powder, keep areas clean and dry -DVT ppx with lovenox, SCDs -GI ppx with PPI -Dispo: has been living in snf -Code status: FULL code -ICU admission due to phenobarbital toxicity, noted acute encephalopathy and need for close monitoring with low threshold for decompensation Attestations Medical Necessity Statement*: Dian Russell's hospital stay will require greater than 2 midnights for management of acute encephalopathy, phenobarbital toxicity, UTI. Time Spent in Patient Care: Greater than 35 minutes (>than 50% of time spent in counselling and/or direct pt care on unit) . Coding Level of Care Code Acute Business Intelligence Analyst for Chg Fwd Diagnoses Phenobarbital toxicity T42.3X1A Encounter type: initial encounter Injury intent: accidental or unintentional Acute metabolic encephalopathy G93.41 UTI (urinary tract infection) N30.01 Urinary tract infection type: acute cystitis Hematuria presence: with hematuria Seizures R56.9 Traumatic brain injury S06.9X0S Encounter type: sequela Loss of consciousness presence/duration: without LOC Anxiety and depression F41.9; F32.9 PTSD (post-traumatic stress disorder) F43.10 Stroke I63.9 CVA mechanism: unspecified Anemia D64.9 Anemia type: unspecified type Physical deconditioning R53.81
--- NOTE | 2019-11-28 17:31 | ECG_ITS ---
[facility] Test Date: 2019-11-28 Pat Name: Dian Russell Department: Room: ICU09 Gender: Female Violin Repairer: : 1950 Requested By: Tanja Hein Order Number: [id number] Tan MD: Sterling Hernandez M.D. Measurements Intervals [place] Rate: 71 P: 65 IA: 186 QRS: -42 QRSD: 140 T: 2 QT: 419 QTc: 458 Interpretive Statements SINUS RHYTHM LEFT AXIS DEVIATION [QRS AXIS < -30] INTRAVENTRICULAR CONDUCTION DELAY [130+ ms QRS DURATION] VOLTAGE CRITERIA FOR LVH [MEETS CRITERIA IN ONE OF: R(aVL), S(V1), R(V5), R(V5/V6)+S(V1)] Compared to ECG 11/08/2019 19:19:04 Intraventricular conduction delay now present Right bundle-branch block no longer present Electronically Signed On 11-29-2019 22:04:04 CDT by Sterling Hernandez M.D. [email or web address]
--- NOTE | 2019-11-28 17:35 | PC.NURSE ---
[place] patient in the room moving around. This RN went to the room to check on the patient. This RN saw the patient standing up in the room. Patient assisted back to bed at this time.
[2019-11-28] MEDS: LORazepam 2 mg/mL INJ 1 mL IVP ×2 (17:53→20:10)
--- NOTE | 2019-11-28 18:35 | PC.NURSE ---
Report attempted to be called at this time. Nurse busy at this time. Will call back shortly.
[2019-11-28] MEDS: cetacaine Spray 5 gm Can 1 SPRAY TOPICAL (19:20)
[2019-11-28] MEDS: succinylcholine 20 mg/mL SDV 10mL 88.4505 MG IV (19:48)
--- NOTE | 2019-11-28 20:09 | PC.NURSE ---
Verbal order from MD Hein for propofol bolus
--- NOTE | 2019-11-28 20:28 | XRR_ITS ---
PROCEDURE INFORMATION: Exam: XR Chest, 1 View Exam date and time: 11/28/2019 8:58 PM Age: 69 years old Clinical indication: Device placement; Other: Post intubation TECHNIQUE: Imaging protocol: XR of the chest Views: 1 view. COMPARISON: CR (CHEST, ) 11/28/2019 1:13 PM FINDINGS: Tubes, catheters and devices: Endotracheal tube is slightly above the yasemin. Nasogastric tube extends slightly below the diaphragm with the tip projecting over the body of the stomach. Lungs: Mild airspace disease within the left lung base. Infiltrate and/or atelectasis. Pleural space: Unremarkable. No pleural effusion. No pneumothorax. Heart/Mediastinum: Unremarkable. No cardiomegaly. Bones/joints: Unremarkable. XR/XR chest 1V portable [id number] IMPRESSION: Mild airspace disease within the left lung base. Infiltrate and/or atelectasis.
[2019-11-28] MEDS: propofol 1,000 MG/100 ML INJ 4 MG (20:37)
[2019-11-28 20:48] LABS: ABG PCO2 37.2 mmHg (35-45); ABG PH Result 7.37 (7.35-7.45); Arterial Blood Gas Hematocrit 35.9 % (37-47); Base Excess ABG -3.3 mmol/L (-2.0-2.0); Blood Gas Sample Site Brachial, right; Blood Gas Sample Type Arterial; Blood Gas Tidal Volume 0.45; HCO3 ABG 21.5 mmol/L (22-26); Oxygen Device VENT
--- NOTE | 2019-11-28 21:01 | PM.CONSULT ---
Providers/Reason For Consult Consulting Physican/Specialty*: Rosina Mckinney DO telenephrology Seen and examined 11/29/2019 05:45 Reason for Consult*: phenobarbital toxicity Attending Physician: Tanja Hein MD History of Present Illness History of Present Illness Dian Russell is a 69 year old female presented for evaluation of altered mental status, which worsened requiring intubation. + phenobarbital toxicity, not known intentional overdose. Was unable to receive activated charcoal. Review of Systems General: Reports: ROS unobtainable due to endotracheal tube Meds/Allergies Home Medications and Allergies Home Medications Medication Instructions Recorded Confirmed Last Taken Type hydrocodone 5 mg-acetaminophen 325 1 tab PO Q24H PRN 30 Days #30 tab 11/26/19 11/28/19 Unknown Rx mg tablet pantoprazole 40 mg tablet,delayed 40 mg PO BID 30 Days #60 tab 11/26/19 11/28/19 Unknown Rx release phenobarbital 97.2 mg tablet 48.6 mg PO BID #60 tab 11/26/19 11/28/19 Unknown Rx sucralfate 1 gram tablet 1 gm PO BID 30 Days #60 tab 11/26/19 11/28/19 Unknown Rx Allergies Allergy/AdvReac Type Severity Reaction Status Date / Time carbamazepine [From Tegretol] Allergy ADR-Gastrointestinal Verified 11/28/19 17:12 Upset levetiracetam [From Keppra] Allergy ADR-Gastrointestinal Verified 11/28/19 17:12 Upset phenytoin [From Dilantin] Allergy ADR-Gastrointestinal Verified 11/28/19 17:12 Upset Current Medications Current Medications Generic Name Dose Route Start Last Admin Trade Name Freq PRN Reason Stop Dose Admin Lorazepam 2 mg 11/28/19 19:00 11/28/19 20:10 Ativan IVP 2 mg Q4H PRN Administration SEIZURES PFSH Acute PFSH: Medical History Anemia Anxiety and depression GERD (gastroesophageal reflux disease) GI bleed Seizure disorder Stroke Traumatic brain injury Surgical History H/O: hysterectomy History of right knee surgery S/P breast lumpectomy Family History Denies family history of Lung disease Hypertension Social History Smoking and tobacco status: heavy tobacco smoker cigarettes [ Other cigarette details: 1 pack/day ] Alcohol intake: never Household members: spouse Housing: Homeless Marital status: Number of children: 2 Number of grandchildren: 6 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 Vitals/I&O/Wt Last Vital Signs Temp 98.2 F 11/28/19 12:37 Pulse 82 11/28/19 19:41 Resp 20 H 11/28/19 19:41 BP 147/97 11/28/19 19:41 Pulse Ox 100 11/28/19 19:41 hypotensive overnight urine output 350 ml/8hr 11/28/19 11/28/19 11/28/19 06:59 14:59 22:59 Intake Total 50 / 50 Balance 50 / 50 Weight last 48 hrs Weight 58.967 kg Physical Exam Const: GENERAL APPEARANCE: patient mechanically ventilated Resp: COMMON NORMALS: normal respiratory effort and clear to auscultation bilaterally AUSCULTATION: clear to auscultation bilaterally Cardio: COMMON NORMALS: regular rate and regular rhythm RATE: regular rate RHYTHM: regular rhythm Extremity: GENERAL: No edema Data Micro: Micro: Microbiology 11/28/19 15:26 Blood Culture - Pr eliminary Blood SPECIMEN [facility] 11/28/19 15:26 Blood Culture - Pr eliminary Blood SPECIMEN [facility] Other Data: Other data: urinalysis: TNTC WBC, + bacteria Phenobarbitol level > 77.9 initial AB.37/37, now 7.56/31/128 on 40% CXR, CT Head no acute findings A&P Additional A&P Information Impression: 1. Phenobarbitol toxicity 2. Urinary tract infection 3. Combination respiratory and metabolic alkalosis Recommend: Reduce IV NaHCO3 (being given to alkalinize urine), continue IVF hydration. Repeat phenobarbitol level pending. Consider dialysis if not improved. Follow-up urine culture, begin antibiotic pending results. Consult Attestations Medical Necessity Statement: critically ill in ICU Time Spent in Patient Care: Greater than 35 minutes (>than 50% of time spent in counselling and/or direct pt care on unit). Coding Level of Care Code Acute Rail Transit Operator for Chg Mike
--- NOTE | 2019-11-28 21:20 | PC.NURSE ---
First IV access compromised, MD placed 18 g left bicep. Second PIV also infiltrated. aware
[2019-11-28] MEDS: midazolam 1 mg/mL INJ 2 mL 5 MG IVP ×2 (21:30→22:07)
[2019-11-28] MEDS: fentaNYL 50 mcg/mL INJ 2mL IVP ×2 (22:21→22:38)
--- NOTE | 2019-11-28 22:36 | PC.NURSE ---
at bedside attempting central access
--- NOTE | 2019-11-28 22:59 | XRR_ITS ---
PROCEDURE INFORMATION: Exam: XR Chest, 1 View Exam date and time: 11/28/2019 11:12 PM Age: 69 years old Clinical indication: Device placement; Other: Central line placement; Additional info: Poat line placement TECHNIQUE: Imaging protocol: XR of the chest Views: 1 view. COMPARISON: CR XR chest 1V portable [id number] 11/28/2019 7:49 PM FINDINGS: Tubes, catheters and devices: Central venous catheter via the right jugular approach with the tip projecting over the superior vena cava. Endotracheal tube is slightly above the yasemin. Nasogastric tube overlies the body of the stomach Lungs: See Pleural space finding. Pleural space: Subtle opacity left costophrenic angle. Lungs are otherwise well aerated. Heart/Mediastinum: Unremarkable. No cardiomegaly. Bones/joints: Unremarkable. XR/XR chest 1V portable [id number] IMPRESSION: Subtle opacity left costophrenic angle. Lungs are otherwise well aerated.
[2019-11-28] MEDS: piperacillin-tazobactam 3.375 GM in sodium chloride 0.9% (plus) 50 ML IV (23:35)
--- NOTE | 2019-11-28 23:40 | PC.NURSE ---
Transferred care to ICU Low
[2019-11-29] VITALS (70 sets, daily range): BP systolic 71–162; BP diastolic 44–118; PULSE 59–108; RESP 12–23; TEMP 36.9–37.7; O2SAT 95–100
[2019-11-29] MEDS: sodium bicarbonate 150 MEQ in dextrose 5% 1,000 ML 125 MEQ IV ×2 (00:06→10:02)
[2019-11-29] MEDS: pantoprazole 40 mg SDV IVP ×3 (00:47→20:37)
[2019-11-29] MEDS: enoxaparin 40 mg/0.4 mL Syringe SUBCUT ×2 (00:47→18:03)
[2019-11-29] MEDS: sodium bicarbonate 8.4% 1 mEq/mL 50mL Syr 50 MEQ IVP (00:48)
[2019-11-29] MEDS: fentaNYL 50 mcg/mL INJ 2mL IVP ×3 (02:52→18:04)
[2019-11-29] MEDS: LORazepam 2 mg/mL INJ 1 mL IVP ×3 (02:53→19:33)
[2019-11-29 04:10] LABS: ABG PCO2 31.1 mmHg (35-45); ABG PH Result 7.56 (7.35-7.45); Arterial Blood Gas Hematocrit 33.4 % (37-47); Base Excess ABG 5.4 mmol/L (-2.0-2.0); Blood Gas Sample Site Brachial, left; Blood Gas Sample Type Arterial; Fractionated Inspired Oxygen 0.4 %; HCO3 ABG 27.5 mmol/L (22-26); Oxygen Device VENT
[2019-11-29] MEDS: propofol 1,000 MG/100 ML INJ 10.6 MG IV (04:44)
[2019-11-29 05:07] LABS: Basophils # 0.1 10^3/uL (0.0-0.1); Basophils % 0.5 %; Eosinophils # 0.9 10^3/uL (0.0-0.8); Eosinophils % 7.3 %; Hematocrit 31.3 % (37.0-47.0); Hemoglobin 10.1 g/dL (11.5-15.3); Lymphocytes # 2.6 10^3/uL (0.8-4.8); Lymphocytes % 20.4 %; Mean Corpuscular HGB Conc 32.3 g/dL (30.0-36.0); Mean Corpuscular Hemoglobin 31.7 pg (28.0-34.0); Mean Corpuscular Volume 98.1 fL (81-99); Mean Platelet Volume 11.2 fL (7.4-10.4); Monocytes # 1.7 10^3/uL (0.2-0.9); Monocytes % 13.5 %; Neutrophils # 7.22 10^3/uL (1.8-7.7); Neutrophils % 57.9 %; Nucleated Red Blood Cells % 0 %; Platelet Count 330 10^3/cmm (130-400); Red Blood Count 3.19 10^6/uL (4.1-5.3); Red Cell Distribution Width 16.8 % (12.1-15.1); White Blood Count 12.5 10^3/uL (4.0-10.0)
[2019-11-29 05:23] LABS: Alanine Aminotransferase 10 U/L (0-33); Alkaline Phosphatase 148 IU/L (35-105); Anion Gap 10.6 (5-19); Aspartate Amino Transferase 12 U/L (0-32); Blood Urea Nitrogen 8 mg/dL (8-23); Calcium 8.4 mg/dL (8.5-10.5); Carbon Dioxide 28 mmol/L (22-29); Chloride 106 mmol/L (98-107); Globulin 2.8 g/dL (1.3-4.6); Glucose 154 mg/dL (65-115); Osmolality Calculated 293 mOsm/kg (285-295); Sodium 142 mmol/L (136-145); Total Bilirubin 0.2 mg/dL (0.15-1.2); Total Protein 5.8 g/dL (6.6-8.7)
[2019-11-29 05:47] LABS: Vitamin B12 417 pg/mL (232-1245)
[2019-11-29 05:57] LABS: Potassium 2.6 mmol/L (3.5-5.1)
--- NOTE | 2019-11-29 06:00 | XRR_ITS ---
PROCEDURE INFORMATION: Exam: XR Chest, 1 View Exam date and time: 11/28/2019 11:59 PM Age: 69 years old Clinical indication: Dyspnea; Additional info: On vent support TECHNIQUE: Imaging protocol: XR of the chest Views: 1 view. COMPARISON: CR XR chest 1V portable [id number] 11/28/2019 11:01 PM FINDINGS: Tubes, catheters and devices: Central venous catheter via the right jugular approach with the tip projecting over the superior vena cava. Endotracheal tube is slightly above the yasemin. Consider repositioning. Nasogastric tube overlies the region of the body of the stomach Lungs: Mild airspace disease within the left lung base. Pleural space: Unremarkable. No pleural effusion. No pneumothorax. Heart/Mediastinum: Unremarkable. No cardiomegaly. Bones/joints: Unremarkable. XR/XR chest 1V portable [id number] IMPRESSION: 1. Endotracheal tube is slightly above the yasemin. Consider repositioning. 2. Mild airspace disease within the left lung base. Small subpulmonic effusion.
[2019-11-29 06:17] LABS: Folate Level 11.1 ng/mL (4.8-37.3)
[2019-11-29] MEDS: piperacillin-tazobactam 3.375 GM in sodium chloride 0.9% (plus) 50 ML IV ×3 (06:18→20:37)
[2019-11-29] MEDS: sodium chloride 0.45% 1,000 ML 75 ML IV ×2 (06:19→19:32)
--- NOTE | 2019-11-29 08:04 | P.PN_ITS ---
Subjective Subjective: Interval history: Remains on vent support, had 300 mL urine output, phenobarbital level increased (77.9->88.2). Afebrile, hypotensive overnight, BP improved this AM. On IVF and bicarb, stable hemoglobin and renal function. Slightly increased leukocytosis. Noted ABG and CXR. Required 1 dose of Ativan overnight. With noted increase in phenobarbital level, per discussion wit h Dr. Mckinney, will need dialysis. Requested temporary catheter placement by Dr. Patiño. Patient seen during catheter placement and again in the afternoon during dialysis session. Propofol just ran out and she is awake, reassured and able to keep calm. So far, seems to be tolerating dialysis session. Medications: Reviewed: Yes Medication Review Details: Active Medications Generic Name Dose Route Start Last Admin Trade Name Freq PRN Reason Stop Dose Admin Enoxaparin Sodium 40 mg 11/28/19 19:00 11/29/19 00:47 Lovenox SUBCUT 40 mg Q24H BABAK Administration Fentanyl 50 mcg 11/28/19 22:00 11/29/19 02:52 Sublimaze IVP 50 mcg Q4H PRN Administration SEVERE PAIN Piperacillin Sod/T azobactam 50 mls @ 12.5 mls /hr 11/28/19 21:00 11/29/19 06:18 Sod 3.375 gm/ So dium Chloride IV 12.5 mls/hr Q8H BABAK Administration Sodium Bicarbonate 150 meq/ 1,150 mls @ 80 ml s/hr 11/28/19 21:30 11/29/19 00:06 Dextrose IV 125 mls/hr .[id number] BABAK Administration Propofol 1,000 mg in 100 m ls @ 0 mls/hr 11/29/19 03:45 11/29/19 04:44 Diprivan IV 30 mcg/kg/min .Q0M BABAK 10.6 mls/hr Administration Protocol Per Protocol Sodium Chloride 1,000 mls @ 75 ml s/hr 11/29/19 06:00 11/29/19 06:19 Sodium Chloride 0.45% IV 75 mls/hr .[id number] BABAK Administration Potassium Chloride 40 meq in 100 mls @ 25 mls/hr 11/29/19 06:38 K-Toro IV 11/29/19 10:37 ONCE ONE Lorazepam 2 mg 11/28/19 19:00 11/29/19 02:53 Ativan IVP 2 mg Q4H PRN Administration SEIZURES Nystatin 1 applic 11/28/19 20:00 11/29/19 00:40 Nystatin Powder TOPICAL Not Given BID BABAK Ondansetron HCl 4 mg 11/28/19 19:00 Zofran IVP Q6H PRN NAUSEA AND VOMITI NG Pantoprazole Sodiu m 40 mg 11/28/19 20:30 11/29/19 00:47 Protonix IVP 40 mg Q12H BABAK Administration carbamazepine [From Tegretol] Allergy (Verified 11/28/19 17:12) ADR-Gastrointestinal Upset levetiracetam [From Keppra] Allergy (Verified 11/28/19 17:12) ADR-Gastrointestinal Upset phenytoin [From Dilantin] Allergy (Verified 11/28/19 17:12) ADR-Gastrointestinal Upset Vitals/I&O/Wt Last Vital Signs Temp 98.5 F 11/29/19 04:30 Pulse 65 11/29/19 04:20 Resp 12 11/29/19 07:57 BP 112/65 11/29/19 04:20 Pulse Ox 100 11/29/19 04:20 11/28/19 11/29/19 11/29/19 22:59 06:59 14:59 Intake Total 50 / 50 50 / 100 Output Total 300 / 300 Balance 50 / 50 -250 / -200 Weight last 48 hrs Weight 59.421 kg Weight 58.967 kg Physical Exam Const: COMMON NORMALS: no acute distress GENERAL APPEARANCE: patient m echanically ventilated NUTRITIONAL APPEARANCE: overweight OTHER: -sedated HENMT: COMMON NORMALS: normocephalic, atraumatic, hearing grossly normal bilaterally and moist oral mucous membranes HEAD & SCALP: normocephalic and atraumatic TEETH & GINGIVA: Yes edentulous OTHER: -Sutured laceration just above right eyebrow; noted bruising on right forehead, fading periorbital bruising around right eye -ETT-23 cm @ lip Eye: COMMON NORMALS: Equal, round and reactive pupils present, EOMs intact bilaterally and conjunctivae normal CONJUNCTIVA: Yes conjunctivae normal PUPIL: Yes Equal, round and reactive pupils present Neck/C-Spine: COMMON NORMALS: full ROM GENERAL: Yes normal visual i nspection and Yes trachea midline OTHER: -R IJ central line, L temporary HD catheter Resp: COMMON NORMALS: normal respiratory effort, No retractions and No use of accessory muscles EFFORT & INSPECTION: Yes symmetric chest movement OTHER: -on vent support (FiO2-40%) -coarse breath sounds Cardio: COMMON NORMALS: regular rate, regular rhythm, S1 normal heart sound present, S2 normal heart sound present and No murmurs present (Cardio) RATE: regular rate RHYTHM: regular rhythm HEART SOUNDS: S1 normal heart sound present and S2 normal heart sound present GI: COMMON NORMALS: Normal to inspection, nondistended, normoactive bowel sounds present, Soft to palpation and non-tender INSPECTION: Yes central obesity PALPATION: Yes Soft to palpation : BLADDER/KIDNEY EXAM: Yes catheter in place Catheter type (Female): urethral Extremity: COMMON NORMALS: normal to inspection, full ROM and no clubbing, cyanosis or edema; negative for no pedal edema Neuro: COMMON NORMALS: moves all extremities, no focal motor deficits and no sensory deficits noted SENSORIUM/ORIENTATION: Yes somnolent SPEECH: Other neuro speech findings (intermittently slurred speech) Psych: APPEARANCE: Yes unkempt OTHER: -sedated Skin: COMMON NORMALS: no rashes or lesions noted, no jaundice, no petechiae and no mottling GENERAL SKIN EXAM: no rashes or lesions noted and scars (linear scar on R patella (healed)) OTHER: -bruising on R forehead, R eyebrow laceration (sutured) and fading R periorbital bruising Urinary Catheter Management^: Aguayo: Cath Placed During This Visit: yes Urinary Catheter Date of Insertion: 11/28/19 Urinary Catheter Time of Insertion: 22:23 Data : 11/29/19 04:40 11/29/19 04:40 Micro: Microbiology 11/28/19 15:26 Blood Culture - Preliminary Blood SPECIMEN COLLECTED 11/28/19 15:26 Blood Culture - Preliminary Blood SPECIMEN COLLECTED A&P Assessment and plan (1) Phenobarbital toxicity: -Noted to have significantly elevated phenobarbital level (> 77.9), increased today (88.2) -Reports taking medication as prescribed though was admitted earlier this month with suspicion for having taken higher than prescribed doses of phenobarbital w hich she takes for history of seizure disorder -Patient reports inability to tolerate other antiepileptic medications including Keppra, Dilantin, Tegretol all of which caused persistent nausea and vomiting -continue to monitor phenobarbital levels daily until within therapeutic range; half-life elimination is about 79 hrs (3-4 days) -Poison control contacted, recommended trial of activated charcoal which was not possible due to patient's clinical decompensation; dialysis is alternative -Patient was encephalopathic on admission -Strict fall precautions, seizure precautions -Hold phenobarbital -Ativan PRN for seizure-like activity -We will need neurology evaluation particularly in light of suspicion that patient is not taking phenobarbital as prescribed and due to need for alternative antiepileptic agent -intubated following increased somnolence and inability to protect airway; remains on vent support -Nephrology consult appreciated; on IVF, alkalinization of urine with bicarb; needs dialysis due to increased levels -Surgery consult for temporary HD catheter placement by Dr. Patiño appreciated Status: Acute Qualifiers: Encounter type: initial encounter Injury intent: accidental or unintentional Qualified Code(s): T42.3X1A - Poisoning by barbiturates, accidental (unintentional), initial encounter (2) Respiratory failure, acute: -intubated following increased somnolence and inability to protect airway; remains on vent support -daily CXR, ABG while on vent -sedation while on mechanical ventilation -on Zosyn due to aspiration -f/u sputum cx, blood cx -due to respiratory compromise and living in homeless residential, tested for COVID- 19, on isolation precautions -not oxygen dependent at baseline -close monitoring of respiratory status -has Aguayo catheter in place, monitor urine output Status: Acute Qualifiers: Respiratory failure complication: unspecified whether with hypoxia or hypercapnia Qualified Code(s): J96.00 - Acute respiratory failure, unspecified whether with hypoxia or hypercapnia (3) Acute metabolic encephalopathy: -Secondary to phenobarbital toxicity, component of encephalopathy secondary to acute UTI -Fall, aspiration, seizure precautions -as noted above Status: Acute (4) UTI (urinary tract infection): -Per patient she is prone to frequent UTIs -UA indicative of infection with noted pyuria, bacteriuria, positive nitrates, hematuria -f/u urine and blood cx -Currently afebrile, noted leukocytosis -on IV antibiotics Status: Acute Qualifiers: Hematuria presence: with hematuria Urinary tract infection type: acute cystitis Qualified Code(s): N30.01 - Acute cystitis with hematuria (5) Seizures: -Seizure precautions -Hold phenobarbital secondary to toxicity -Ativan PRN Status: Chronic (6) Traumatic brain injury: Status: Chronic Qualifiers: Encounter type: sequela Loss of consciousness presence/duration: without LOC Qualified Code(s): S06.9X0S - Unspecified intracranial injury without loss of consciousness, sequela (7) Anxiety and depression: -Has been referred to [facility] Status: Chronic (8) PTSD (post-traumatic stress disorder): Status: Chronic (9) Stroke: Status: Chronic Qualifiers: CVA mechanism: unspecified Qualified Code(s): I63.9 - Cerebral infarction, unspecified (10) Anemia: -Had been noted to be anemic during last admission, hemoglobin improved compared to discharge -Continue to monitor H&H -Current baseline hemoglobin appears to be around 10 -Given macrocytosis, noted folate (wnl) and B12 levels (low-normal); also order FOBT -has reported hx of prior GI bleed, on PPI and carafate Status: Chronic Qualifiers: Anemia type: unspecified type Qualified Code(s): D64.9 - Anemia, unspecified (11) Physical deconditioning: -Has had frequent falls recently, describes what sounds like an ataxic gait -PT evaluation once mental status improved and off vent support -Strict fall precautions, assistance with all out of bed activity -Reports that she falls due to buckling and instability of her right knee, has already been referred to Ortho. Recent knee x-ray done (11/27/19) showing primary OA, chondrocalcinosis -Would avoid narcotics due to noted altered mental status and risk of further respiratory depression. Would avoid tramadol due to risk of lowering seizure threshold. Would also avoid NSAIDs due to history of GI bleed and underlying anemia Status: Acute Additional A&P Information -Patient is currently living in residential with , verbal report that she may not be able to return to facility on discharge. In light of second admission with suspicion for overmedication, physical deconditioning, frequent falls will request case management consult for possible placement. Will also need Psych evaluation -NPO as on vent support -Inguinal intertrgo; nystatin powder, keep areas clean and dry -DVT ppx with lovenox, SCDs -GI ppx with PPI -Dispo: has been living in residential -Code status: FULL code -ICU care due to phenobarbital toxicity, noted acute encephalopathy and vent support Attestations Medical Necessity Statement*: Patient requires hospitalization for continued vent support, management of phenobarbital toxicity including dialysis. Time Spent in Patient Care: Greater than 35 minutes (>than 50% of time spent in counselling and/or direct pt care on unit) . The high probability of a clinically significant, sudden or life threatening deterioration of the patient's [cardiovascular, respiratory] system(s) required my full and direct attention, intervention and personal management. The critical care time is as shown. This time is in addition to time spent performing any reported procedures but includes the following: [x] Data and vital sign review and interpretation [x] Patient assessment, examination and intervention [x] Documentation [x] Medication orders and management Critical Care Time: Critical Care Time (min): 30 Coding Level of Care Code Acute Clinic Cma for Chg Fwd Exam Comprehensive Diagnoses Phenobarbital toxicity T42.3X1A Encounter type: initial encounter Injury intent: accidental or unintentional Respiratory failure, acute J96.00 Respiratory failure complication: unspecified whether with hypoxia or hypercapnia Acute metabolic encephalopathy G93.41 UTI (urinary tract infection) N30.01 Hematuria presence: with hematuria Urinary tract infection type: acute cystitis Seizures R56.9 Traumatic brain injury S06.9X0S Encounter type: sequela Loss of consciousness presence/duration: without LOC Anxiety and depression F41.9; F32.9 PTSD (post-traumatic stress disorder) F43.10 Stroke I63.9 CVA mechanism: unspecified Anemia D64.9 Anemia type: unspecified type Physical deconditioning R53.81
[2019-11-29] MEDS: potassium chloride premix 40 MEQ/100 ML PREMIX 25 MEQ IV ×2 (10:00→13:38)
[2019-11-29] MEDS: propofol 1,000 MG/100 ML INJ 15.9 MG IV (12:17)
--- NOTE | 2019-11-29 12:36 | XRR_ITS ---
PROCEDURE INFORMATION: Exam: XR Chest, 1 View Exam date and time: 11/29/2019 1:29 PM Age: 69 years old Clinical indication: Device placement; Other: Dialysis cath TECHNIQUE: Imaging protocol: XR of the chest Views: 1 view. COMPARISON: CR (CHEST, ) 11/29/2019 5:02 AM FINDINGS: Tubes, catheters and devices: There is a right internal jugular central venous catheter appropriately positioned with the tip in the lower SVC near the cavoatrial junction. The endotracheal tube is appropriately positioned in the distal thoracic trachea with the tip above the yasemin. NG tube tip is in the stomach approximately 4 cm beyond the diaphragmatic hiatus. There is a new left internal jugular central line with the tip in the lower SVC near the cavoatrial junction. Lungs: Lungs are clear. Pleural space: There is no pleural effusion or pneumothorax. Heart/Mediastinum: The cardiac silhouette is within normal limits of size given AP technique. Bones/joints: Bones are unremarkable. XR/XR chest 1V portable [id number] IMPRESSION: 1. New left internal jugular central line tip positioned in the lower SVC near the cavoatrial junction. 2. Stable findings otherwise.
[2019-11-29] MEDS: nystatin powder 15 gm Btl 1 APPLIC TOPICAL ×2 (13:37→18:05)
[2019-11-29 14:58] LABS: Hepatitis B Core AB, Total Non-Reactive (Nonreactive); Hepatitis B Surface AB 3.5 (0-8.5); Hepatitis B Surface Antigen Non-Reactive (Nonreactive); Hepatitis C Virus Antibody Non-Reactive (Nonreactive)
--- NOTE | 2019-11-29 17:00 | XRR_ITS ---
PROCEDURE INFORMATION: Exam: XR Chest, 1 View Exam date and time: 11/29/2019 2:13 PM Age: 69 years old Clinical indication: Other: R/O ptx TECHNIQUE: Imaging protocol: XR of the chest Views: 1 view. COMPARISON: CR XR chest 1V portable [id number] 11/29/2019 1:11 PM FINDINGS: Tubes, catheters and devices: A left central line is in place the tip extends into the SVC. This line has been repositioned since prior examination and is now in good alignment. A right central line is in place extending into the SVC. NG tube is in place in the subdiaphragmatic tissues the distal side hole is in the distal esophagus above the EG junction. This finding should be advanced at least 8 cm Endotracheal tube is in place the tip is 12 mm above the yasemin. Lungs: Unremarkable. No consolidation. Pleural space: Unremarkable. No pleural effusion. No pneumothorax. Heart/Mediastinum: Unremarkable. No cardiomegaly. Bones/joints: Unremarkable. Metallic surgical clips left upper quadrant. XR/XR chest 1V portable [id number] IMPRESSION: 1. No acute findings. 2. Left central line is now in good position. 3. Right central line is in good position. 4. NG tube distal side hole is in the esophagus should be advanced 5. Endotracheal tube is in position as described 6. Metallic surgical clips left upper quadrant
--- NOTE | 2019-11-29 17:00 | XRR_ITS ---
PROCEDURE INFORMATION: Exam: XR Chest, 1 View Exam date and time: 11/29/2019 1:31 PM Age: 69 years old Clinical indication: Device placement; Other: Dialysis cath; Additional info: R/O ptx TECHNIQUE: Imaging protocol: XR of the chest Views: 1 view. COMPARISON: CR XR chest 1V portable [id number] 11/29/2019 12:45 PM FINDINGS: Tubes, catheters and devices: There is a left central line in place extending into the SVC. The distal portion of this line appears to be folded upon itself. The tip of this catheter extends toward the aortic arch A right central line is in place extending into the SVC. Endotracheal tube is in place 3.2 cm above the yasemin. NG tube extends into the stomach Lungs: Left lower lobe interstitial congestion No consolidation. Pleural space: Unremarkable. No pleural effusion. No pneumothorax. Heart/Mediastinum: Unremarkable. No cardiomegaly. Bones/joints: Unremarkable. XR/XR chest 1V portable [id number] IMPRESSION: 1. No acute findings. 2. Distal left central line is folded upon itself. 3. Right central line extends into the SVC 4. NG tube extends into the stomach 5. Endotracheal tube is in good position
[2019-11-29] MEDS: propofol 1,000 MG/100 ML INJ 17.7 MG IV ×2 (18:03→21:49)
--- NOTE | 2019-11-29 19:48 | PC.NURSE ---
shift summary: Pt remains on the vent. Poison Control called to check on her twice, charcoal administration vs. dialysis was discussed. Lung sounds remain clear. Pt able to follow commands and was tearful at sedation vacation this evening.. Hemodialysis cath place in left neck today, Hemodialysis done. Urine output good at 1600 clear yellow uine.
[2019-11-29] MEDS: dexmedetomidine 400 MCG in sodium chloride 0.9% (100 ml) 100 ML IV (20:37)
[2019-11-29 20:44] LABS: Anion Gap 11.1 (5-19); Calcium 8.1 mg/dL (8.5-10.5); Carbon Dioxide 30 mmol/L (22-29); Chloride 100 mmol/L (98-107); Creatinine Clr Calc Pharmacy 56.2148; Glucose 142 mg/dL (65-115); Potassium 3.1 mmol/L (3.5-5.1); Sodium 138 mmol/L (136-145)
[2019-11-29 21:09] LABS: Blood Urea Nitrogen 1 mg/dL (8-23); Osmolality Calculated 284 mOsm/kg (285-295)
[2019-11-30] VITALS (31 sets, daily range): BP systolic 80–145; BP diastolic 47–85; PULSE 52–76; RESP 12–14; TEMP 36.8–37.5; O2SAT 95–100
[2019-11-30] MEDS: fentaNYL 50 mcg/mL INJ 2mL IVP ×2 (00:30→06:16)
[2019-11-30] MEDS: propofol 1,000 MG/100 ML INJ 17.7 MG IV ×3 (03:08→23:53)
[2019-11-30 04:57] LABS: Basophils # 0.1 10^3/uL (0.0-0.1); Basophils % 0.5 %; Eosinophils # 0.7 10^3/uL (0.0-0.8); Eosinophils % 5.9 %; Hematocrit 32.1 % (37.0-47.0); Hemoglobin 10.4 g/dL (11.5-15.3); Lymphocytes # 2.5 10^3/uL (0.8-4.8); Lymphocytes % 20.2 %; Mean Corpuscular HGB Conc 32.4 g/dL (30.0-36.0); Mean Corpuscular Hemoglobin 31.9 pg (28.0-34.0); Mean Corpuscular Volume 98.5 fL (81-99); Mean Platelet Volume 11.1 fL (7.4-10.4); Monocytes # 2.2 10^3/uL (0.2-0.9); Neutrophils # 6.76 10^3/uL (1.8-7.7); Neutrophils % 55.2 %; Nucleated Red Blood Cells % 0 %; Platelet Count 275 10^3/cmm (130-400); Red Blood Count 3.26 10^6/uL (4.1-5.3); Red Cell Distribution Width 17.2 % (12.1-15.1); White Blood Count 12.2 10^3/uL (4.0-10.0)
[2019-11-30 05:17] LABS: Alanine Aminotransferase 10 U/L (0-33); Alkaline Phosphatase 145 IU/L (35-105); Anion Gap 10.6 (5-19); Aspartate Amino Transferase 16 U/L (0-32); Blood Urea Nitrogen 2 mg/dL (8-23); Calcium 8.2 mg/dL (8.5-10.5); Carbon Dioxide 29 mmol/L (22-29); Chloride 104 mmol/L (98-107); Creatinine Clr Calc Pharmacy 56.2148; Globulin 2.7 g/dL (1.3-4.6); Glucose 115 mg/dL (65-115); Osmolality Calculated 288 mOsm/kg (285-295); Sodium 141 mmol/L (136-145); Total Bilirubin 0.2 mg/dL (0.15-1.2); Total Protein 5.7 g/dL (6.6-8.7)
[2019-11-30 05:29] LABS: ABG PCO2 37.9 mmHg (35-45); Arterial Blood Gas Hematocrit 37.5 % (37-47); Base Excess ABG 5.8 mmol/L (-2.0-2.0); Blood Gas Allen Test Pos; Blood Gas Sample Site Radial, right; Blood Gas Sample Type Arterial; Blood Gas Tidal Volume 0.4; HCO3 ABG 29.4 mmol/L (22-26); Oxygen Device VENT
[2019-11-30 05:36] LABS: Potassium 2.6 mmol/L (3.5-5.1)
[2019-11-30] MEDS: piperacillin-tazobactam 3.375 GM in sodium chloride 0.9% (plus) 50 ML IV ×3 (06:16→21:03)
[2019-11-30] MEDS: potassium chloride premix 40 MEQ/100 ML PREMIX 25 MEQ IV (06:21)
--- NOTE | 2019-11-30 06:50 | PM.PN ---
Subjective Subjective: Interval history: remains sedated on pressors after dialysis yesterday Medications: Reviewed: Yes Medication Review Details: Current Medications Enoxaparin Sodium (Lovenox) 40 mg SUBCUT Q24H [facility] Last Admin: 11/29/19 18:03 Dose: 40 mg Documented by: Fentanyl (Sublimaze) 50 mcg IVP Q2H PRN PRN Reason: SEVERE PAIN Last Admin: 11/30/19 06:16 Dose: 50 mcg Documented by: Heparin Sodium (Beef Lung) (Heparin Lock Flush) 500 unit IV BID [facility] Last Admin: 11/30/19 02:14 Dose: Not Given Documented by: Piperacillin Sod/Tazobactam (Sod 3.375 gm/ Sodium Chloride) 50 mls @ 12.5 mls/hr IV Q8H [facility] Last Admin: 11/30/19 06:16 Dose: 12.5 mls/hr Documented by: Propofol (Diprivan) 1,000 mg in 100 mls @ 0 mls/hr IV .Q0M [facility]; Protocol Last Admin: 11/30/19 03:08 Dose: 50 mcg/kg/min, 17.7 mls/hr Documented by: Dexmedetomidine HCl 400 mcg/ (Sodium Chloride) 104 mls @ 0 mls/hr IV .Q0M [facility]; Protocol Last Titration: 11/29/19 21:30 Dose: 0.5 mcg/kg/hr, 7.7 mls/hr Documented by: Potassium Chloride (K-Toro) 40 meq in 100 mls @ 25 mls/hr IV ONCE ONE Stop: 11/30/19 09:45 Last Admin: 11/30/19 06:21 Dose: 25 mls/hr Documented by: Potassium Chloride 40 meq/ (Sodium Chloride) 1,000 mls @ 100 mls/hr IV .Q10H [facility] Lorazepam (Ativan) 2 mg IVP Q4H PRN PRN Reason: SEIZURES Last Admin: 11/29/19 19:33 Dose: 2 mg Documented by: Nystatin (Nystatin Powder) 1 applic TOPICAL BID [facility] Last Admin: 11/29/19 18:05 Dose: 1 applic Documented by: Ondansetron HCl (Zofran) 4 mg IVP Q6H PRN PRN Reason: NAUSEA AND VOMITING Pantoprazole Sodium (Protonix) 40 mg IVP Q12H [facility] Last Admin: 11/29/19 20:37 Dose: 40 mg Documented by: Vitals/I&O/Wt Last Vital Signs Temp 99.2 F 11/30/19 04:00 Pulse 54 L 11/30/19 04:00 Resp 12 11/30/19 05:35 BP 96/47 11/30/19 04:00 Pulse Ox 99 11/30/19 04:00 11/29/19 11/29/19 11/30/19 14:59 22:59 06:59 Intake Total 1280.03 / 1280.03 1209.637 / 2489.667 123.367 / 2613.034 Output Total 1600 / 1600 1500 / 3100 Balance 1280.03 / 1280.03 -390.363 / 889.667 -1376.633 / -486.966 Weight last 48 hrs Weight 59.421 kg Weight 58.967 kg Physical Exam Narrative: EXAM NARRATIVE: sedated, intubated, good uop, fio2 requirements are down NAD heent- nca/t eomi neck no jvp lungs are clear heart reg abd soft, +BS ext chefs edema neuro- sedated Urinary Catheter Management^: Aguayo: Cath Placed During This Visit: yes Reason for Continuing Indwelling Catheter: Accurate Measurement of Urinary Output in Critically Ill Patients Urinary Catheter Date of Insertion: 11/28/19 Urinary Catheter Time of Insertion: 22:23 Data : 11/30/19 04:27 11/30/19 04:27 Micro: Microbiology 11/28/19 15:26 Blood Culture - Preliminary Blood NEGATIVE TO DATE 11/28/19 15:26 Blood Culture - Preliminary Blood NEGATIVE TO DATE 11/28/19 13:01 Urine Culture - Preliminary Urine,Clean Catch Gram Negative Rods A&P Additional A&P Information 69 yr old female w/ phenobabrbital toxicity- level down to 30.2- will monitor w/ IVF. level improved yesterday w/ dialysis -monitor phenobarb level and chemistries -replete k and mag as neded 2. VDRF - abx per PMD. wean off vent as tolerated. fio2 down to 40% 3. UTI on zosyn 4. met alkalosis - s/p hd- monitor discussed w/ rN Attestations Medical Necessity Statement*: VDRF, phenobarbital toxicity Time Spent in Patient Care: 16 - 35 minutes Coding Level of Care Code Acute Instructional Writer for Sienna Mckeon
--- NOTE | 2019-11-30 07:15 | P.OP_ITS ---
Operative Report Date of procedure: November 30, 2019 Procedure: Preoperative diagnosis: Acute renal failure requiring emergent dialysis Postoperative diagnosis: Same Procedure: Placement of Mahurkar catheter in the right internal jugular vein under ultrasound guidance Ultrasound guidance for accessing the left internal jugular vein Fluoroscopic guidance and interpretation for placement of catheter in the distal superior vena cava Surgeon: Haroon Anesthesia: Local Description of procedure: The patient's left neck and chest was prepped and draped in a sterile manner. An ultrasound of the left internal jugular vein revealed patent veins with no evidence of thrombus. 5 mL of 1% lidocaine was infiltrated at the site of planned entry, an introducer needle was used to access the right internal jugular vein under ultrasound guidance. Guidewire was passed through the introducer needle, it was noted that the wire was not passing easily and therefore an x-ray machine was brought in. Under fluoroscopy it was noted that the wire was in the left subclavian vein. The wire was slowly wi thdrawn and subsequently advanced into the superior vena cava under fluoroscopic guidance. The introducer needle was removed. Serial dilators were passed over the guidewire after the skin incision was extended using 11 blade and Mahurkar catheter was then passed over the guidewire and the guidewire was removed. The catheter was sutured to the skin using 2-0 Ethilon suture. Sterile dressings were applied. Postop procedure chest x-ray showed no evidence of pneumothorax and good positioning of the catheter.
--- NOTE | 2019-11-30 07:15 | P.CONIM_ITS ---
Providers/Reason For Consult Consulting Physican/Specialty*: Dr. Hein Reason for Consult*: Dialysis catheter placement Attending Physician: Tanja Hein MD History of Present Illness History of Present Illness Dian Russell is a 69 year old female Review of Systems General: Reports: ROS unobtainable due to endotracheal tube Meds/Allergies Home Medications and Allergies Home Medications Medication Instructions Recorded Confirmed Last Taken Type Lactobacillus acidoph-L.bulgar 1 tab PO BID #30 tab 12/04/19 Unknown Rx [Floranex] hydrocodone-acetaminophen [Randlett] 1 tab PO Q8H PRN 30 Days #30 tab 12/04/19 Unknown Rx levofloxacin 750 mg PO DAILY #7 tab 12/04/19 Unknown Rx pantoprazole [Protonix] 40 mg PO BID 30 Days #60 tab 12/04/19 Unknown Rx phenobarbital 48.6 mg PO BID #60 tab 12/04/19 Unknown Rx potassium chloride 40 meq PO DAILY #30 tab 12/04/19 Unknown Rx sucralfate [Carafate] 1 gm PO BID 30 Days #60 tab 12/04/19 Unknown Rx Allergies Allergy/AdvReac Type Severity Reaction Status Date / Time carbamazepine [From Tegretol] Allergy ADR-Gastrointestinal Verified 11/28/19 17:12 Upset levetiracetam [From Keppra] Allergy ADR-Gastrointestinal Verified 11/28/19 17:12 Upset phenytoin [From Dilantin] Allergy ADR-Gastrointestinal Verified 11/28/19 17:12 Upset Current Medications Current Medications Generic Name Dose Route Start Last Admin Trade Name Freq PRN Reason Stop Dose Admin Enoxaparin Sodium 40 mg 11/28/19 19:00 11/29/19 18:03 Lovenox SUBCUT 40 mg Q24H BABAK Administration Fentanyl 50 mcg 11/29/19 21:25 11/30/19 06:16 Sublimaze IVP 50 mcg Q2H PRN Administration SEVERE PAIN Heparin Sodium (Beef Lung) 500 unit 11/29/19 13:28 11/30/19 02:14 Heparin Lock Flush IV Not Given BID BABAK Piperacillin Sod/Tazobactam 50 mls @ 12.5 mls/hr 11/28/19 21:00 11/30/19 06:16 Sod 3.375 gm/ Sodium Chloride IV 12.5 mls/hr Q8H BABAK Administration Propofol 1,000 mg in 100 mls @ 0 mls/hr 11/29/19 03:45 11/30/19 03:08 Diprivan IV 50 mcg/kg/min .Q0M BABAK 17.7 mls/hr Administration Protocol Per Protocol Dexmedetomidine HCl 400 mcg/ 104 mls @ 0 mls/hr 11/29/19 20:15 11/29/19 21:30 Sodium Chloride IV 0.5 mcg/kg/hr .Q0M BABAK 7.7 mls/hr Titration Protocol Per Protocol Potassium Chloride 40 meq in 100 mls @ 25 mls/hr 11/30/19 05:46 11/30/19 06:21 K-Toro IV 11/30/19 09:45 25 mls/hr ONCE ONE Administration Lorazepam 2 mg 11/28/19 19:00 11/29/19 19:33 Ativan IVP 2 mg Q4H PRN Administration SEIZURES Nystatin 1 applic 11/28/19 20:00 11/29/19 18:05 Nystatin Powder TOPICAL 1 applic BID BABAK Administration Pantoprazole Sodium 40 mg 11/28/19 20:30 11/29/19 20:37 Protonix IVP 40 mg Q12H BABAK Administration PFSH Acute PFSH: Medical History Anemia -Had been noted to be anemic during last admission, hemoglobin improved compared to discharge -Continue to monitor H&H -Current baseline hemoglobin appears to be around 10 -Given macrocytosis, noted folate (wnl) and B12 levels (low-normal); FOBT negative -has reported hx of prior GI bleed, on PPI and carafate Anxiety and depression -has been referred to [facility] GERD (gastroesophageal reflux disease) GI bleed PTSD (post-traumatic stress disorder) Seizure disorder Seizures -Seizure precautions -phenobarbital resumed -Ativan PRN Stroke Traumatic brain injury Surgical History H/O: hysterectomy History of right knee surgery S/P breast lumpectomy S/P dialysis catheter insertion (11/29/19) Family History Denies family history of Lung disease Hypertension Social History Smoking and tobacco status: heavy tobacco smoker cigarettes [ Other cigarette details: 1 pack/day ] Alcohol intake: never Household members: spouse Housing: Homeless Marital status: Number of children: 2 Number of grandchildren: 6 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 Vitals/I&O/Wt Last Vital Signs Temp 99.2 F 11/30/19 04:00 Pulse 54 L 11/30/19 04:00 Resp 12 11/30/19 05:35 BP 96/47 11/30/19 04:00 Pulse Ox 99 11/30/19 04:00 11/29/19 11/30/19 11/30/19 22:59 06:59 14:59 Intake Total 1209.637 / 2613.034 123.367 / 2613.034 Output Total 1600 / 3100 1500 / 3100 Balance -390.363 / -486.966 -1376.633 / -486.966 Weight last 48 hrs Weight 131 lb Weight 130 lb Physical Exam Narrative: EXAM NARRATIVE: HEENT: Normocephalic, intubated on the ventilator, right IJ triple-lumen catheter Eye: Sclera /conjunctiva normal Respiratory and chest: Bilateral clear breath sounds on auscultation Cardiovascular: Normal S1 and S2 heart sounds Abdomen: Soft to palpation Neurological: Oriented to place person and time Skin: Intact, no lesions appreciated on gross exam Urinary Catheter Management^: Aguayo: Cath Placed During This Visit: yes Reason for Continuing Indwelling Catheter: Accurate Measurement of Urinary Output in Critically Ill Patients Urinary Catheter Date of Insertion: 11/28/19 Urinary Catheter Time of Insertion: 22:23 Data Micro: Micro: Microbiology 11/28/19 15:26 Blood Culture - Pr eliminary Blood NEGATIVE TO ERASTO E 11/28/19 15:26 Blood Culture - Pr eliminary Blood NEGATIVE TO ERASTO E 11/28/19 13:01 Urine Culture - Pr eliminary Urine,Clean Catch Gram Negative R ods A&P Assessment and plan (1) Acute metabolic encephalopathy: 69-year-old female whose developed metabolic encephalopathy secondary to phenobarbital toxicity who requires emergent dialysis Plan for placement of left IJ temporary dialysis catheter at bedside Status: Resolved Coding Level of Care Code Acute Resaw Carriage Operator for Sienna Mckeon Diagnoses Acute metabolic encephalopathy G93.41
--- NOTE | 2019-11-30 08:05 | PM.PN ---
Subjective Subjective: Interval history: Hemodynamically stable though had some spikes in blood pressure overnight, afebrile, remains on vent support, FiO2 of 40%. Had 1500 mL urine output and 300 mL NG output overnight. Stable hemoglobin and leukocytosis, noted hypokalemia with replacement ongoing. ABG noted. Phenobarbital level down to 30.2 this morning. Urine culture growing gram-negative rods so far, prelim blood cultures negative. COVID-19 test sent overnight as had been missed in the ER. Patient remains on isolation precautions. Precedex added for additional sedation given patient's noted intermittent agitation overnight. She is resting comfortably currently. Medications: Reviewed: Yes Medication Review Details: Active Medications Generic Name Dose Route Start Last Admin Trade Name Freq PRN Reason Stop Dose Admin Enoxaparin Sodium 40 mg 11/28/19 19:00 11/29/19 18:03 Lovenox SUBCUT 40 mg Q24H BABAK Administration Fentanyl 50 mcg 11/29/19 21:25 11/30/19 06:16 Sublimaze IVP 50 mcg Q2H PRN Administration SEVERE PAIN Heparin Sodium (Be ef Lung) 500 unit 11/29/19 13:28 11/30/19 02:14 Heparin Lock Flu sh IV Not Given BID BABAK Piperacillin Sod/T azobactam 50 mls @ 12.5 mls /hr 11/28/19 21:00 11/30/19 06:16 Sod 3.375 gm/ So dium Chloride IV 12.5 mls/hr Q8H BABAK Administration Propofol 1,000 mg in 100 m ls @ 0 mls/hr 11/29/19 03:45 11/30/19 03:08 Diprivan IV 50 mcg/kg/min .Q0M BABAK 17.7 mls/hr Administration Protocol Per Protocol Dexmedetomidine HC l 400 mcg/ 104 mls @ 0 mls/h r 11/29/19 20:15 11/29/19 21:30 Sodium Chloride IV 0.5 mcg/kg/hr .Q0M BABAK 7.7 mls/hr Titration Protocol Per Protocol Potassium Chloride 40 meq in 100 mls @ 25 mls/hr 11/30/19 05:46 11/30/19 06:21 K-Toro IV 11/30/19 09:45 25 mls/hr ONCE ONE Administration Potassium Chloride 40 meq/ 1,000 mls @ 100 m ls/hr 11/30/19 07:00 Sodium Chloride IV .Q10H BABAK Lorazepam 2 mg 11/28/19 19:00 11/29/19 19:33 Ativan IVP 2 mg Q4H PRN Administration SEIZURES Nystatin 1 applic 11/28/19 20:00 11/29/19 18:05 Nystatin Powder TOPICAL 1 applic BID BABAK Administration Ondansetron HCl 4 mg 11/28/19 19:00 Zofran IVP Q6H PRN NAUSEA AND VOMITI NG Pantoprazole Sodiu m 40 mg 11/28/19 20:30 11/29/19 20:37 Protonix IVP 40 mg Q12H BABAK Administration carbamazepine [From Tegretol] Allergy (Verified 11/28/19 17:12) ADR-Gastrointestinal Upset levetiracetam [From Keppra] Allergy (Verified 11/28/19 17:12) ADR-Gastrointestinal Upset phenytoin [From Dilantin] Allergy (Verified 11/28/19 17:12) ADR-Gastrointestinal Upset Vitals/I&O/Wt Last Vital Signs Temp 99.2 F 11/30/19 04:00 Pulse 54 L 11/30/19 04:00 Resp 12 11/30/19 05:35 BP 96/47 11/30/19 04:00 Pulse Ox 99 11/30/19 04:00 11/29/19 11/30/19 11/30/19 22:59 06:59 14:59 Intake Total 1209.637 / 2489.667 123.367 / 2613.034 Output Total 1600 / 1600 1500 / 3100 300 / 300 Balance -390.363 / 889.667 -1376.633 / -486.966 -300 / -300 Weight last 48 hrs Weight 59.421 kg Weight 59.421 kg Weight 58.967 kg Physical Exam Const: COMMON NORMALS: no acute distress GENERAL APPEARANCE: patient mechanically ventilated NUTRITIONAL APPEARANCE: overweight ORIENTATION/CONSCIOUSNESS: Yes awake OTHER: -sedated HENMT: COMMON NORMALS: normocephalic, atraumatic, hearing grossly normal bilaterally and moist oral mucous membranes HEAD & SCALP: normocephalic and atraumatic TEETH & GINGIVA: Yes edentulous OTHER: -Sutured laceration just above right eyebrow; noted bruising on right forehead, fading periorbital bruising around right eye -ETT-23 cm @ lip Eye: COMMON NORMALS: Equal, round and reactive pupils present, EOMs intact bilaterally and conjunctivae normal CONJUNCTIVA: Yes conjunctivae normal PUPIL: Yes Equal, round and reactive pupils present Neck/C-Spine: COMMON NORMALS: full ROM GENERAL: Yes normal visual inspection and Yes trachea midline OTHER: -R IJ central line, L temporary HD catheter Resp: COMMON NORMALS: normal respiratory effort, No retractions and No use of accessory muscles EFFORT & INSPECTION: Yes symmetric chest movement OTHER: -on vent support (FiO2-40%) -coarse breath sounds Cardio: COMMON NORMALS: regular rate, regular rhythm, S1 normal heart sound present, S2 normal heart sound present and No murmurs present (Cardio) RATE: regular rate RHYTHM: regular rhythm HEART SOUNDS: S1 normal heart sound present and S2 normal heart sound present GI: COMMON NORMALS: Normal to inspection, nondistended, normoactive bowel sounds present, Soft to palpation and non-tender INSPECTION: Yes central obesity PALPATION: Yes Soft to palpation : BLADDER/KIDNEY EXAM: Yes catheter in place Catheter type (Female): urethral Extremity: COMMON NORMALS: normal to inspection, full ROM and no clubbing, cyanosis or edema; negative for no pedal edema Neuro: COMMON NORMALS: moves all extremities, no focal motor deficits and no sensory deficits noted SENSORIUM/ORIENTATION: Yes somnolent SPEECH: Other neuro speech findings (intermittently slurred speech) Psych: COMMON NORMALS: mental status grossly normal, cooperative, normal affect and speech normal APPEARANCE: Yes unkempt ACTIVITY/MOTOR BEHAVIOR: Yes fidgeting SPEECH: Yes normal speech MOOD & AFFECT: Yes Labile affect present THOUGHT PROCESS: Tangential thought process present OTHER: -sedated with Propofol @ 50 mcg/kg/min and Precedex @ 0.5 mcg/kg/hr Skin: COMMON NORMALS: no rashes or lesions noted, no jaundice, no petechiae and no mottling GENERAL SKIN EXAM: no rashes or lesions noted and scars (linear scar on R patella (healed)) OTHER: -bruising on R forehead, R eyebrow laceration (sutured) and fading R periorbital bruising Urinary Catheter Management^: Aguayo: Cath Placed During This Visit: yes Reason for Continuing Indwelling Catheter: Accurate Measurement of Urinary Output in Critically Ill Patients Urinary Catheter Date of Insertion: 11/28/19 Urinary Catheter Time of Insertion: 22:23 Data : 11/30/19 04:27 11/30/19 04:27 Micro: Microbiology 11/28/19 15:26 Blood Culture - Preliminary Blood NEGATIVE TO DATE 11/28/19 15:26 Blood Culture - Preliminary Blood NEGATIVE TO DATE 11/28/19 13:01 Urine Culture - Preliminary Urine,Clean Catch Gram Negative Rods A&P Assessment and plan (1) Phenobarbital toxicity: -Noted to have significantly elevated phenobarbital level (peaked at 88.2); noted significant improvement with HD session x 1 (30.2) -Reports taking medication as prescribed though was admitted earlier this month with suspicion for having taken higher than prescribed doses of phenobarbital which she takes for history of seizure disorder -Patient reports inability to tolerate other antiepileptic medications including Keppra, Dilantin, Tegretol all of which caused persistent nausea and vomiting -continue to monitor phenobarbital levels daily until within therapeutic range; half-life elimination is about 79 hrs (3-4 days) -Poison control contacted, recommended trial of activated charcoal which was not possible due to patient's clinical decompensation; dialysis is alternative -Patient was encephalopathic on admission -Strict fall precautions, seizure precautions -Hold phenobarbital -Ativan PRN for seizure-like activity -We will need neurology evaluation particularly in light of suspicion that patient is not taking phenobarbital as prescribed and due to need for alternative antiepileptic agent -intubated following increased somnolence and inability to protect airway; remains on vent support -Nephrology consult appreciated; on IVF, alkalinization of urine with bicarb; had dialysis due to increased levels -Surgery consult for temporary HD catheter placement by Dr. Patiño appreciated Status: Acute Qualifiers: Encounter type: initial encounter Injury intent: accidental or unintentional Qualified Code(s): T42.3X1A - Poisoning by barbiturates, accidental (unintentional), initial encounter (2) Respiratory failure, acute: -intubated following increased somnolence and inability to protect airway; remains on vent support -daily CXR, ABG while on vent -sedation while on mechanical ventilation -on Zosyn due to aspiration -f/u sputum cx -blood cx: prelim negative -due to respiratory compromise and living in homeless senior care, tested for COVID-19, on isolation precautions -not oxygen dependent at baseline -close monitoring of respiratory status -has Aguayo catheter in place, monitor urine output Status: Acute Qualifiers: Respiratory failure complication: unspecified whether with hypoxia or hypercapnia Qualified Code(s): J96.00 - Acute respiratory failure, unspecified whether with hypoxia or hypercapnia (3) Acute metabolic encephalopathy: -Secondary to phenobarbital toxicity, component of encephalopathy secondary to acute UTI -Fall, aspiration, seizure precautions -as noted above Status: Acute (4) UTI (urinary tract infection): -Per patient she is prone to frequent UTIs -UA indicative of infection with noted pyuria, bacteriuria, positive nitrates, hematuria -urine cx: E.coli, sensitivity noted -blood cx: prelim negative -Currently afebrile, noted leukocytosis -on IV antibiotics Status: Acute Qualifiers: Hematuria presence: with hematuria Urinary tract infection type: acute cystitis Qualified Code(s): N30.01 - Acute cystitis with hematuria (5) Seizures: -Seizure precautions -Hold phenobarbital secondary to toxicity -Ativan PRN Status: Chronic (6) Traumatic brain injury: Status: Chronic Qualifiers: Encounter type: sequela Loss of consciousness presence/duration: without LOC Qualified Code(s): S06.9X0S - Unspecified intracranial injury without loss of consciousness, sequela (7) Anxiety and depression: -Has been referred to [facility] [place] Status: Chronic (8) PTSD (post-traumatic stress disorder): Status: Chronic (9) Stroke: Status: Chronic Qualifiers: CVA mechanism: unspecified Qualified Code(s): I63.9 - Cerebral infarction, unspecified (10) Anemia: -Had been noted to be anemic during last admission, hemoglobin improved compared to discharge -Continue to monitor H&H -Current baseline hemoglobin appears to be around 10 -Given macrocytosis, noted folate (wnl) and B12 levels (low-normal); pending FOBT -has reported hx of prior GI bleed, on PPI and carafate Status: Chronic Qualifiers: Anemia type: unspecified type Qualified Code(s): D64.9 - Anemia, unspecified (11) Physical deconditioning: -Has had frequent falls recently, describes what sounds like an ataxic gait -PT evaluation once mental status improved and off vent support -Strict fall precautions, assistance with all out of bed activity -Reports that she falls due to buckling and instability of her right knee, has already been referred to Ortho. Recent knee x-ray done (11/27/19) showing primary OA, chondrocalcinosis -Would avoid narcotics due to noted altered mental status and risk of further respiratory depression. Would avoid tramadol due to risk of lowering seizure threshold. Would also avoid NSAIDs due to history of GI bleed and underlying anemia Status: Acute Additional A&P Information -Patient is currently living in senior care with , verbal report that she may not be able to return to facility on discharge. In light of second admission with suspicion for overmedication, physical deconditioning, frequent falls will request case management consult for possible placement. Will also need Psych evaluation -NPO as on vent support -Inguinal intertrgo; nystatin powder, keep areas clean and dry -DVT ppx with lovenox, SCDs -GI ppx with PPI -Dispo: has been living in senior care -Code status: FULL code -ICU care due to phenobarbital toxicity, noted acute encephalopathy and vent support Attestations Medical Necessity Statement*: Patient requires hospitalization for continued management of acute respiratory failure, on vent support, phenobarbital toxicity, UTI. Time Spent in Patient Care: 16 - 35 minutes (>than 50% of time spent in counselling and/or direct pt care on unit). Critical Care Time: The high probability of a clinically significant, sudden or life threatening deterioration of the patient's [cardiovascular, respiratory] system(s) required my full and direct attention, intervention and personal management. The critical care time is as shown. This time is in addition to time spent performing any reported procedures but includes the following: [x] Data and vital sign review and interpretation [x] Patient assessment, examination and intervention [x] Documentation [x] Medication orders and management Critical Care Time (min): 20 Coding Level of Care Code Acute Manager Medical Affairs for Floresg Fwd Exam Comprehensive Diagnoses Phenobarbital toxicity T42.3X1A Encounter type: initial encounter Injury intent: accidental or unintentional Respiratory failure, acute J96.00 Respiratory failure complication: unspecified whether with hypoxia or hypercapnia Acute metabolic encephalopathy G93.41 UTI (urinary tract infection) N30.01 Hematuria presence: with hematuria Urinary tract infection type: acute cystitis Seizures R56.9 Traumatic brain injury S06.9X0S Encounter type: sequela Loss of consciousness presence/duration: without LOC Anxiety and depression F41.9; F32.9 PTSD (post-traumatic stress disorder) F43.10 Stroke I63.9 CVA mechanism: unspecified Anemia D64.9 Anemia type: unspecified type Physical deconditioning R53.81
[2019-11-30] MEDS: pantoprazole 40 mg SDV IVP ×2 (09:52→21:03)
[2019-11-30] MEDS: nystatin powder 15 gm Btl 1 APPLIC TOPICAL ×2 (09:53→18:14)
--- NOTE | 2019-11-30 12:02 | P.PN_ITS ---
Subjective Subjective: Interval history: Patient received dialysis through the left IJ dialysis catheter without any difficulties. Vitals/I&O/Wt Last Vital Signs Temp 99.2 F 11/30/19 04:00 Pulse 54 L 11/30/19 04:00 Resp 12 11/30/19 11:29 BP 96/47 11/30/19 04:00 Pulse Ox 99 11/30/19 04:00 11/29/19 11/30/19 11/30/19 22:59 06:59 14:59 Intake Total 1209.637 / 2613.034 123.367 / 2613.034 Output Total 1600 / 3100 1500 / 3100 300 / 300 Balance -390.363 / -486.966 -1376.633 / -486.966 -300 / -300 Weight last 48 hrs Weight 131 lb Weight 131 lb Weight 130 lb Physical Exam Urinary Catheter Management^: Aguayo: Cath Placed During This Visit: yes Reason for Continuing Indwelling Catheter: Accurate Measurement of Urinary Output in Critically Ill Patients Urinary Catheter Date of Insertion: 11/28/19 Urinary Catheter Time of Insertion: 22:23 Data : 11/30/19 04:27 11/30/19 04:27 Micro: Microbiology 11/28/19 13:01 Urine Culture - Final Urine,Clean Catch Escherichia coli 11/28/19 15:26 Blood Culture - Preliminary Blood NEGATIVE TO DATE 11/28/19 15:26 Blood Culture - Preliminary Blood NEGATIVE TO DATE A&P Assessment and plan (1) S/P dialysis catheter insertion: Catheter functioning well Please call if catheter needs to be converted to tunneled dialysis catheter, o therwise it can be removed by the nursing staff when he is no longer needed Status: Acute Attestations Medical Necessity Statement*: Dialysis catheter placement Coding Level of Care Code Acute Railroad Wheels And Axles Inspector for Chg Fwd Diagnoses S/P dialysis catheter insertion Z95.828; Z99.2
[2019-11-30 13:54] LABS: Anion Gap 12.7 (5-19); Blood Urea Nitrogen 3 mg/dL (8-23); Calcium 8.6 mg/dL (8.5-10.5); Carbon Dioxide 26 mmol/L (22-29); Chloride 106 mmol/L (98-107); Creatinine Clr Calc Pharmacy 56.2148; Glucose 106 mg/dL (65-115); Osmolality Calculated 288 mOsm/kg (285-295); Potassium 3.7 mmol/L (3.5-5.1); Sodium 141 mmol/L (136-145)
[2019-11-30 15:43] LABS: Coronavirus Lab Test PTC NOT DETECTED
--- NOTE | 2019-11-30 16:15 | PC.RESP ---
Smoking Cessation information sent to patient.
[2019-11-30] MEDS: sodium chlor 0.45% +KCl 20 mEq 20 MEQ/1,000 ML BAG 100 MEQ IV (18:13)
[2019-11-30] MEDS: enoxaparin 40 mg/0.4 mL Syringe SUBCUT (18:14)
[2019-11-30] MEDS: dexmedetomidine 400 MCG in sodium chloride 0.9% (100 ml) 100 ML 7.7 MCG IV (21:04)
[2019-12-01] VITALS (33 sets, daily range): BP systolic 79–157; BP diastolic 42–95; PULSE 59–95; RESP 12–28; TEMP 36.6–36.8; O2SAT 88–100
[2019-12-01] MEDS: propofol 1,000 MG/100 ML INJ 17.7 MG IV ×2 (03:30→09:23)
[2019-12-01] MEDS: fentaNYL 50 mcg/mL INJ 2mL IVP (03:30)
[2019-12-01] MEDS: sodium chlor 0.45% +KCl 20 mEq 20 MEQ/1,000 ML BAG 100 MEQ IV (03:30)
[2019-12-01 04:35] LABS: Alanine Aminotransferase 10 U/L (0-33); Albumin Level 2.8 g/dL (3.5-5.2); Alkaline Phosphatase 135 IU/L (35-105); Anion Gap 12.8 (5-19); Aspartate Amino Transferase 15 U/L (0-32); Blood Urea Nitrogen 4 mg/dL (8-23); Calcium 8.5 mg/dL (8.5-10.5); Carbon Dioxide 22 mmol/L (22-29); Chloride 106 mmol/L (98-107); Creatinine Clr Calc Pharmacy 56.2148; Globulin 3.2 g/dL (1.3-4.6); Glucose 99 mg/dL (65-115); Magnesium 1.8 mg/dL (1.7-2.3); Osmolality Calculated 280 mOsm/kg (285-295); Phosphorus 3.5 mg/dL (2.5-4.5); Potassium 3.8 mmol/L (3.5-5.1); Sodium 137 mmol/L (136-145); Total Bilirubin 0.2 mg/dL (0.15-1.2)
[2019-12-01] MEDS: piperacillin-tazobactam 3.375 GM in sodium chloride 0.9% (plus) 50 ML IV ×3 (06:02→22:00)
[2019-12-01] MEDS: dexmedetomidine 400 MCG in sodium chloride 0.9% (100 ml) 100 ML 9.3 MCG IV (06:02)
--- NOTE | 2019-12-01 06:26 | P.PN_ITS ---
Subjective Subjective: Interval history: remains intubated and sedated. Medications: Reviewed: Yes Medication Review Details: Current Medications Enoxaparin Sodium (Lovenox) 40 mg SUBCUT Q24H [facility] Last Admin: 11/30/19 18:14 Dose: 40 mg Documented by: Fentanyl (Sublimaze) 50 mcg IVP Q2H PRN PRN Reason: SEVERE PAIN Last Admin: 12/01/19 03:30 Dose: 50 mcg Documented by: Heparin Sodium (Beef Lung) (Heparin Lock Flush) 500 unit IV BID BABAK Last Admin: 11/30/19 18:13 Dose: 500 unit Documented by: Piperacillin Sod/Tazobactam (Sod 3.375 gm/ Sodium Chloride) 50 mls @ 12.5 mls/hr IV Q8H [facility] Last Admin: 12/01/19 06:02 Dose: 12.5 mls/hr Documented by: Propofol (Diprivan) 1,000 mg in 100 mls @ 0 mls/hr IV .Q0M [facility]; Protocol Last Admin: 12/01/19 03:30 Dose: 50 mcg/kg/min, 17.7 mls/hr Documented by: Dexmedetomidine HCl 400 mcg/ (Sodium Chloride) 104 mls @ 0 mls/hr IV .Q0M [facility]; Protocol Last Admin: 12/01/19 06:02 Dose: 0.6 mcg/kg/hr, 9.3 mls/hr Documented by: Potassium Chloride/Sodium Chloride (Sodium Chlor 0.45% +Kcl 20 Meq) 20 meq in 1,000 mls @ 100 mls/hr IV .Q10H [facility] Last Admin: 12/01/19 03:30 Dose: 100 mls/hr Documented by: Lorazepam (Ativan) 2 mg IVP Q4H PRN PRN Reason: SEIZURES Last Admin: 11/29/19 19:33 Dose: 2 mg Documented by: Nystatin (Nystatin Powder) 1 applic TOPICAL BID [facility] Last Admin: 11/30/19 18:14 Dose: 1 applic Documented by: Ondansetron HCl (Zofran) 4 mg IVP Q6H PRN PRN Reason: NAUSEA AND VOMITING Pantoprazole Sodium (Protonix) 40 mg IVP Q12H [facility] Last Admin: 11/30/19 21:03 Dose: 40 mg Documented by: Vitals/I&O/Wt Last Vital Signs Temp 98.3 F 12/01/19 04:00 Pulse 59 L 12/01/19 05:00 Resp 12 12/01/19 06:11 BP 105/55 12/01/19 05:00 Pulse Ox 95 12/01/19 05:00 11/30/19 11/30/19 12/01/19 14:59 22:59 06:59 Intake Total 246.628 / 246.628 50 / 357.616 5174.246 / 1457.874 Output Total 300 / 300 1175 / 1475 750 / 2225 Balance -53.372 / -53.372 -1125 / -1178.372 411.246 / -767.126 Weight last 48 hrs Weight 51.256 kg Weight 59.421 kg Physical Exam Narrative: EXAM NARRATIVE: sedated, intubated, good uop, fio2 requirements are down tp 40% NAD heent- nca/t eomi neck no jvp lungs are clear heart reg abd soft, +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 -monitor phenobarb level and chemistries this afternoon. if phenobabrb level continues to dec then d/c dialysis catheter -replete k and mag as neded 2. VDRF - abx per PMD. wean off vent as tolerated. fio2 down to 40% 3. UTI on zosyn 4. anemia - repeat cbc meds reviewed discussed w/ RN Attestations Medical Necessity Statement*: VDRF, phenobabrbital toxicity improving Time Spent in Patient Care: 16 - 35 minutes Coding Level of Care Code Acute Eyelet Operator for Floresg Mike
[2019-12-01] MEDS: pantoprazole 40 mg SDV IVP ×2 (08:01→20:24)
[2019-12-01] MEDS: nystatin powder 15 gm Btl 1 APPLIC TOPICAL ×2 (08:01→18:18)
--- NOTE | 2019-12-01 08:11 | XR_ITS ---
WS: [id number] PORTABLE CHEST HISTORY: on vent support COMPARISON: 11/29/2019 Endotracheal nasogastric tubes in good position. RIGHT internal jugular line with tip in the distal S VC is unchanged. Minimal atelectasis at the LEFT lung base versus pleural fluid. No pneumonia. No pneumothorax. Cardiac size: Normal. Mediastinum/Aorta: Mild atherosclerosis aorta. No osseous abnormality seen. XR/XR chest 1V portable [id number] IMPRESSION: 1. Endotracheal and nasogastric tubes remain in good position. 2. LEFT basilar atelectasis versus small effusion. No change.
--- NOTE | 2019-12-01 08:12 | P.PN_ITS ---
Subjective Subjective: Interval history: Remains on vent support, down to FiO2-30%, on Precedex and Propofol for sedation. Not much in the way of suctioned secretions from ETT but had quite a bit of oral secretions. Some restlessness potentially due to pain and received a dose of Fentanyl. Phenobarbital level down to 23.4 this AM, repeat in PM to determine if dialysis catheter can be discontinued. Weaning trial pending ABG. Hemodynamically stable, afebrile. Had 550 mL urine output overnight. Successful weaning trial, extubated earlier this afternoon, alert and oriented during my late afternoon rounds. Request something to eat as she is quite hungry. Passed dysphagia screening at bedside. Medications: Reviewed: Yes Medication Review Details: Active Medications Generic Name Dose Route Start Last Admin Trade Name Freq PRN Reason Stop Dose Admin Enoxaparin Sodium 40 mg 11/28/19 19:00 11/30/19 18:14 Lovenox SUBCUT 40 mg Q24H BABKA Administration Fentanyl 50 mcg 11/29/19 21:25 12/01/19 03:30 Sublimaze IVP 50 mcg Q2H PRN Administration SEVERE PAIN Heparin Sodium (Be ef Lung) 500 unit 11/29/19 13:28 11/30/19 18:13 Heparin Lock Flu sh IV 500 unit BID BABAK Administration Piperacillin Sod/T azobactam 50 mls @ 12.5 mls /hr 11/28/19 21:00 12/01/19 06:02 Sod 3.375 gm/ So dium Chloride IV 12.5 mls/hr Q8H BABAK Administration Propofol 1,000 mg in 100 m ls @ 0 mls/hr 11/29/19 03:45 12/01/19 03:30 Diprivan IV 50 mcg/kg/min .Q0M BABAK 17.7 mls/hr Administration Protocol Per Protocol Dexmedetomidine HC l 400 mcg/ 104 mls @ 0 mls/h r 11/29/19 20:15 12/01/19 06:02 Sodium Chloride IV 0.6 mcg/kg/hr .Q0M BABAK 9.3 mls/hr Administration Protocol Per Protocol Potassium Chloride /Sodium Chloride 20 meq in 1,000 m ls @ 60 mls/hr 11/30/19 16:15 12/01/19 06:37 Sodium Chlor 0.4 5% +Kcl 20 Meq IV 60 mls/hr .[id number] BABAK Infusion Lorazepam 2 mg 11/28/19 19:00 11/29/19 19:33 Ativan IVP 2 mg Q4H PRN Administration SEIZURES Nystatin 1 applic 11/28/19 20:00 12/01/19 08:01 Nystatin Powder TOPICAL 1 applic BID BABAK Administration Ondansetron HCl 4 mg 11/28/19 19:00 Zofran IVP Q6H PRN NAUSEA AND VOMITI NG Pantoprazole Sodiu m 40 mg 11/28/19 20:30 12/01/19 08:01 Protonix IVP 40 mg Q12H BABAK Administration carbamazepine [From Tegretol] Allergy (Verified 11/28/19 17:12) ADR-Gastrointestinal Upset levetiracetam [From Keppra] Allergy (Verified 11/28/19 17:12) ADR-Gastrointestinal Upset phenytoin [From Dilantin] Allergy (Verified 11/28/19 17:12) ADR-Gastrointestinal Upset Vitals/I&O/Wt Last Vital Signs Temp 98.3 F 12/01/19 04:00 Pulse 59 L 12/01/19 05:00 Resp 12 12/01/19 08:04 BP 105/55 12/01/19 05:00 Pulse Ox 95 12/01/19 05:00 11/30/19 12/01/19 12/01/19 22:59 06:59 14:59 Intake Total 50 / 304.873 3867.913 / 1769.541 Output Total 1175 / 1475 750 / 2225 Balance -1125 / -1178.372 722.913 / -455.459 Weight last 48 hrs Weight 51.256 kg Weight 59.421 kg Physical Exam Const: COMMON NORMALS: no acute distress GENERAL APPEARANCE: patient mechanically ventilated NUTRITIONAL APPEARANCE: overweight ORIENTATION/CONSCIOUSNESS: Yes awake OTHER: -sedated HENMT: COMMON NORMALS: normocephalic, atraumatic, hearing grossly normal bilaterally and moist oral mucous membranes HEAD & SCALP: normocephalic and atraumatic TEETH & GINGIVA: Yes edentulous OTHER: -Sutured laceration just above right eyebrow; noted bruising on right forehead, fading periorbital bruising around right eye -ETT-23 cm @ lip Eye: COMMON NORMALS: Equal, round and reactive pupils present, EOMs intact bilaterally and conjunctivae normal CONJUNCTIVA: Yes conjunctivae normal PUPIL: Yes Equal, round and reactive pupils present Neck/C-Spine: COMMON NORMALS: full ROM GENERAL: Yes normal visual inspection and Yes trachea midline OTHER: -R IJ central line, L temporary HD catheter Resp: COMMON NORMALS: normal respiratory effort, No retractions and No use of accessory muscles EFFORT & INSPECTION: Yes symmetric chest movement OTHER: -on vent support (FiO2-30%) -coarse breath sounds Cardio: COMMON NORMALS: regular rate, regular rhythm, S1 normal heart sound present, S2 normal heart sound present and No murmurs present (Cardio) RATE: regular rate RHYTHM: regular rhythm HEART SOUNDS: S1 normal heart sound present and S2 normal heart sound present GI: COMMON NORMALS: Normal to inspection, nondistended, normoactive bowel sounds present, Soft to palpation and non-tender INSPECTION: Yes central obesity PALPATION: Yes Soft to palpation : BLADDER/KIDNEY EXAM: Yes catheter in place Catheter type (Female): urethral Extremity: COMMON NORMALS: normal to inspection, full ROM and no clubbing, cyanosis or edema; negative for no pedal edema Neuro: COMMON NORMALS: moves all extremities, no focal motor deficits and no sensory deficits noted SENSORIUM/ORIENTATION: Yes somnolent SPEECH: Other neuro speech findings (intermittently slurred speech) Psych: COMMON NORMALS: mental status grossly normal, cooperative, normal affect and speech normal APPEARANCE: Yes unkempt ACTIVITY/MOTOR BEHAVIOR: Yes fidgeting SPEECH: Yes normal speech MOOD & AFFECT: Yes Labile affect present THOUGHT PROCESS: Tangential thought process present OTHER: - sedated with Propofol @ 50 mcg/kg/min and Precedex @ 0.6 mcg/kg/hr Skin: COMMON NORMALS: no rashes or lesions noted, no jaundice, no petechiae and no mottling GENERAL SKIN EXAM: no rashes or lesions noted and scars (linear scar on R patella (healed)) OTHER: -bruising on R forehead, R eyebrow laceration (sutured) and fading R periorbital bruising Urinary Catheter Management^: Aguayo: Cath Placed During This Visit: yes Reason for Continuing Indwelling Catheter: Accurate Measurement of Urinary Output in Critically Ill Patients Urinary Catheter Date of Insertion: 11/28/19 Urinary Catheter Time of Insertion: 22:23 Data : 11/30/19 04:27 12/01/19 14:16 Micro: Microbiology 11/28/19 13:01 Urine Culture - Final Urine,Clean Catch Escherichia coli A&P Assessment and plan (1) Phenobarbital toxicity: -Noted to have significantly elevated phenobarbital level (peaked at 88.2); noted significant improvement with HD session x 1 (30.2) -Reports taking medication as prescribed though was admitted earlier this month with suspicion for having taken higher than prescribed doses of phenobarbital which she takes for history of seizure disorder -Patient reports inability to tolerate other antiepileptic medications including Keppra, Dilantin, Tegretol all of which caused persistent nausea and vomiting -continue to monitor phenobarbital levels daily until within therapeutic range; half-life elimination is about 79 hrs (3-4 days). Phenobarbital levels normalized following dialysis -Poison control contacted, recommended trial of activated charcoal which was not possible due to patient's clinical decompensation; dialysis is alternative -Patient was encephalopathic on admission -Strict fall precautions, seizure precautions -Hold phenobarbital -Ativan PRN for seizure-like activity -We will need neurology evaluation particularly in light of suspicion that patient is not taking phenobarbital as prescribed and due to need for alternative antiepileptic agent -intubated following increased somnolence and inability to protect airway; remains on vent support -Nephrology consult appreciated; on IVF, alkalinization of urine with bicarb; had dialysis due to increased levels -Surgery consult for temporary HD catheter placement by Dr. Patiño appreciated Status: Acute (2) Respiratory failure, acute: -intubated following increased somnolence and inability to protect airway; remains on vent support -daily CXR, ABG while on vent -sedation while on mechanical ventilation -on Zosyn due to aspiration -sputum cx: pending, gram stain-rare GNRs -blood cx: prelim negative -due to respiratory compromise and living in homeless nursing home, tested for COVID- 19 which is negative, off isolation precautions -not oxygen dependent at baseline -close monitoring of respiratory status -has Aguayo catheter in place, monitor urine output Status: Acute (3) Acute metabolic encephalopathy: -Secondary to phenobarbital toxicity, component of encephalopathy secondary to acute UTI -Fall, aspiration, seizure precautions -as noted above Status: Acute (4) UTI (urinary tract infection): -Per patient she is prone to frequent UTIs -UA indicative of infection with noted pyuria, bacteriuria, positive nitrates, hematuria -urine cx: E.coli, sensitivity noted -blood cx: prelim negative -Currently afebrile, noted leukocytosis -on IV antibiotics Status: Acute Qualifiers: Hematuria presence: with hematuria Urinary tract infection type: acute cystitis Qualified Code(s): N30.01 - Acute cystitis with hematuria (5) Seizures: -Seizure precautions -Hold phenobarbital secondary to toxicity -Ativan PRN Status: Chronic (6) Traumatic brain injury: Status: Chronic Qualifiers: Encounter type: sequela Loss of consciousness presence/duration: without LOC Qualified Code(s): S06.9X0S - Unspecified intracranial injury without loss of consciousness, sequela (7) Anxiety and depression: -Has been referred to [facility] Status: Chronic (8) PTSD (post-traumatic stress disorder): Status: Chronic (9) Stroke: Status: Chronic Qualifiers: CVA mechanism: unspecified Qualified Code(s): I63.9 - Cerebral infarction, unspecified (10) Anemia: -Had been noted to be anemic during last admission, hemoglobin improved compared to discharge -Continue to monitor H&H -Current baseline hemoglobin appears to be around 10 -Given macrocytosis, noted folate (wnl) and B12 levels (low-normal); pending FOBT -has reported hx of prior GI bleed, on PPI and carafate Status: Chronic (11) Physical deconditioning: -Has had frequent falls recently, describes what sounds like an ataxic gait -PT evaluation once mental status improved and off vent support -Strict fall precautions, assistance with all out of bed activity -Reports that she falls due to buckling and instability of her right knee, has already been referred to Ortho. Recent knee x-ray done (11/27/19) showing prim samir OA, chondrocalcinosis -Would avoid narcotics due to noted altered mental status and risk of further respiratory depression. Would avoid tramadol due to risk of lowering seizure threshold. Would also avoid NSAIDs due to history of GI bleed and underlying anemia Status: Acute Additional A&P Information -Patient is currently living in nursing home with , verbal report that she may not be able to return to facility on discharge. In light of second admission with suspicion for overmedication, physical deconditioning, frequent falls will request case management consult for possible placement. Will also need Psych evaluation -NPO as on vent support -Inguinal intertrgo; nystatin powder, keep areas clean and dry -DVT ppx with lovenox, SCDs -GI ppx with PPI -Dispo: has been living in nursing home -Code status: FULL code -ICU care due to phenobarbital toxicity, noted acute encephalopathy and vent keller pport Attestations Medical Necessity Statement*: Patient requires hospitalization for continued management of acute respiratory failure, remains on vent support and sedation, treatment of UTI. Time Spent in Patient Care: 16 - 35 minutes (>than 50% of time spent in counselling and/or direct pt care on unit) . Critical Care Time: The high probability of a clinically significant, sudden or life threatening deterioration of the patient's [cardiovascular, respiratory] system(s) required my full and direct attention, intervention and personal management. The critical care time is as shown. 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
--- NOTE | 2019-12-01 08:36 | DCPLANNER ---
Pg 2 of IM copied however pt is still on the vent. She is Covid negative.
[2019-12-01 11:12] LABS: ABG PCO2 32.8 mmHg (35-45); ABG PH Result 7.41 (7.35-7.45); Arterial Blood Gas Hematocrit 33.7 % (37-47); Base Excess ABG -3.3 mmol/L (-2.0-2.0); Blood Gas Allen Test Pos; Blood Gas Sample Site Brachial, left; Blood Gas Sample Type Arterial; Blood Gas Tidal Volume 0.4; HCO3 ABG 20.7 mmol/L (22-26); Oxygen Device VENT; PO2 ABG 81.5 mmHg (80.0-100.0)
[2019-12-01 14:47] LABS: Alanine Aminotransferase 9 U/L (0-33); Albumin Level 2.9 g/dL (3.5-5.2); Alkaline Phosphatase 134 IU/L (35-105); Anion Gap 14.8 (5-19); Aspartate Amino Transferase 13 U/L (0-32); Blood Urea Nitrogen 4 mg/dL (8-23); Calcium 8.8 mg/dL (8.5-10.5); Carbon Dioxide 21 mmol/L (22-29); Chloride 108 mmol/L (98-107); Globulin 3.1 g/dL (1.3-4.6); Glucose 94 mg/dL (65-115); Magnesium 1.7 mg/dL (1.7-2.3); Osmolality Calculated 285 mOsm/kg (285-295); Potassium 3.8 mmol/L (3.5-5.1); Sodium 140 mmol/L (136-145); Total Bilirubin 0.2 mg/dL (0.15-1.2)
--- NOTE | 2019-12-01 15:46 | PC.NURSE ---
Extubate Patient extubated to 3L NC. Tolerated procedure well.
--- NOTE | 2019-12-01 15:47 | PC.NURSE ---
Pt extubated at this time and tolerated well. Pt now c/o sharp chest pain 9/10 and some weakness on her left arm. Call to Dr. Tanja Hein at this time and notified that pt was extubated and is now c/o katrin pain and weakness in the left arm and states that was where she previously had weakness from a stroke but she usually does not have much weakness. Dr Agrawal tells this nurse that she will come see the patient after she finishes what she is doing. No orders received at this time.
--- NOTE | 2019-12-01 16:45 | PC.NURSE ---
Pt sitting up at side of bed at this time after working with physical therapy. Pt tolerating activity well. Pt has had no further c/o chest pain and exhibits no extremity weakness at this time. Pt is alert, oriented and converses easily with staff. Will continue to monitor for any changes in pt condition.
[2019-12-01] MEDS: enoxaparin 40 mg/0.4 mL Syringe SUBCUT (18:17)
[2019-12-01] MEDS: sodium chlor 0.45% +KCl 20 mEq 20 MEQ/1,000 ML BAG 60 MEQ IV (20:24)
[2019-12-01] MEDS: dexmedetomidine 400 MCG in sodium chloride 0.9% (100 ml) 100 ML 10.8 MCG IV (20:24)
[2019-12-01] MEDS: LORazepam 2 mg/mL INJ 1 mL IVP (20:24)
[2019-12-02] VITALS (15 sets, daily range): BP systolic 96–181; BP diastolic 46–103; PULSE 61–109; RESP 17–33; TEMP 36.7–37.6; O2SAT 93–99
[2019-12-02] MEDS: piperacillin-tazobactam 3.375 GM in sodium chloride 0.9% (plus) 50 ML IV ×3 (04:58→23:44)
[2019-12-02 05:35] LABS: Basophils # 0.1 10^3/uL (0.0-0.1); Basophils % 0.4 %; Eosinophils # 1.4 10^3/uL (0.0-0.8); Eosinophils % 8.4 %; Hematocrit 28.5 % (37.0-47.0); Lymphocytes # 2.9 10^3/uL (0.8-4.8); Lymphocytes % 17.3 %; Mean Corpuscular HGB Conc 31.6 g/dL (30.0-36.0); Mean Corpuscular Hemoglobin 32.6 pg (28.0-34.0); Mean Corpuscular Volume 103.3 fL (81-99); Mean Platelet Volume 12.1 fL (7.4-10.4); Monocytes # 2.3 10^3/uL (0.2-0.9); Monocytes % 13.7 %; Neutrophils # 9.89 10^3/uL (1.8-7.7); Neutrophils % 59.7 %; Nucleated Red Blood Cells % 0 %; Platelet Count 237 10^3/cmm (130-400); Red Blood Count 2.76 10^6/uL (4.1-5.3); Red Cell Distribution Width 17.6 % (12.1-15.1); White Blood Count 16.5 10^3/uL (4.0-10.0)
[2019-12-02 06:14] LABS: Alanine Aminotransferase 8 U/L (0-33); Albumin Level 2.9 g/dL (3.5-5.2); Alkaline Phosphatase 118 IU/L (35-105); Aspartate Amino Transferase 13 U/L (0-32); Blood Urea Nitrogen 5 mg/dL (8-23); Calcium 9.3 mg/dL (8.5-10.5); Carbon Dioxide 21 mmol/L (22-29); Chloride 109 mmol/L (98-107); Globulin 2.5 g/dL (1.3-4.6); Glucose 91 mg/dL (65-115); Magnesium 1.6 mg/dL (1.7-2.3); Osmolality Calculated 285 mOsm/kg (285-295); Phosphorus 3.5 mg/dL (2.5-4.5); Sodium 140 mmol/L (136-145); Total Bilirubin 0.2 mg/dL (0.15-1.2); Total Protein 5.4 g/dL (6.6-8.7)
--- NOTE | 2019-12-02 06:47 | PM.PN ---
Subjective Subjective: Interval history: feels better. extubated, more awake. follows simple commands Medications: Reviewed: Yes Medication Review Details: Current Medications Enoxaparin Sodium (Lovenox) 40 mg SUBCUT Q24H [facility] Last Admin: 12/01/19 18:17 Dose: 40 mg Documented by: Fentanyl (Sublimaze) 50 mcg IVP Q2H PRN PRN Reason: SEVERE PAIN Last Admin: 12/01/19 03:30 Dose: 50 mcg Documented by: Heparin Sodium (Beef Lung) (Heparin Lock Flush) 500 unit IV BID [facility] Last Admin: 12/01/19 17:31 Dose: Not Given Documented by: Piperacillin Sod/Tazobactam (Sod 3.375 gm/ Sodium Chloride) 50 mls @ 12.5 mls/hr IV Q8H [facility] Last Admin: 12/02/19 04:58 Dose: 12.5 mls/hr Documented by: Dexmedetomidine HCl 400 mcg/ (Sodium Chloride) 104 mls @ 0 mls/hr IV .Q0M [facility]; Protocol Last Admin: 12/01/19 20:24 Dose: 0.7 mcg/kg/hr, 10.8 mls/hr Documented by: Potassium Chloride/Sodium Chloride (Sodium Chlor 0.45% +Kcl 20 Meq) 20 meq in 1,000 mls @ 60 mls/hr IV .[id number] [facility] Last Admin: 12/01/19 20:24 Dose: 60 mls/hr Documented by: Lorazepam (Ativan) 2 mg IVP Q4H PRN PRN Reason: SEIZURES Last Admin: 12/01/19 20:24 Dose: 2 mg Documented by: Nystatin (Nystatin Powder) 1 applic TOPICAL BID [facility] Last Admin: 12/01/19 18:18 Dose: 1 applic Documented by: Ondansetron HCl (Zofran) 4 mg IVP Q6H PRN PRN Reason: NAUSEA AND VOMITING Pantoprazole Sodium (Protonix) 40 mg IVP Q12H [facility] Last Admin: 12/01/19 20:24 Dose: 40 mg Documented by: Vitals/I&O/Wt Last Vital Signs Temp 98.1 F 12/02/19 04:00 Pulse 63 12/02/19 05:00 Resp 25 H 12/02/19 05:00 BP 111/48 12/02/19 05:00 Pulse Ox 99 12/02/19 05:00 12/01/19 12/01/19 12/02/19 14:59 22:59 06:59 Intake Total 290.177 / 290.177 894.443 / 1184.620 50 / 1234.620 Output Total 1500 / 1500 Balance 290.177 / 290.177 894.443 / 1184.620 -1450 / -265.380 Weight last 48 hrs Weight 51.256 kg Weight 51.256 kg Physical Exam Narrative: EXAM NARRATIVE: comfortable, NARD in ICU- extubated VSS heent- nca/t eomi neck no jvp lungs are clear heart reg abd soft, +BS ext no edema neuro-more awake and appropriate Urinary Catheter Management^: Aguayo: Cath Placed During This Visit: yes Reason for Continuing Indwelling Catheter: Accurate Measurement of Urinary Output in Critically Ill Patients Urinary Catheter Date of Insertion: 11/28/19 Urinary Catheter Time of Insertion: 22:23 Data : 12/02/19 05:03 12/02/19 05:03 Micro: Microbiology 12/01/19 11:20 Gram Stain - Final Sputum - Expectorated Sputum A&P Additional A&P Information 69 yr old female w/ phenobabrbital toxicity- level down to 19.1 -can d/c ivf PLEASE REMOVE DIALYSIS CATHETER -replete k and mag as neded 2. VDRF - abx per PMD. wean off vent as tolerated. fio2 down to 40% 3. UTI on zosyn. wbc upto `16 4. anemia -would check iron studies RX per hospitalist as normal renal fxn and phenobarbital level normalized. renal will sign off. please call if we can be of assistance. 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
[2019-12-02] MEDS: pantoprazole 40 mg SDV IVP (08:15)
[2019-12-02] MEDS: LORazepam 2 mg/mL INJ 1 mL IVP ×2 (08:17→19:40)
--- NOTE | 2019-12-02 09:59 | P.PN_ITS ---
Subjective Subjective: Interval history: Patient did well overnight, currently on room air, had 1500 mL urine output overnight, hemodynamically stable and afebrile but noted to be tachypneic. Noted drop in hemoglobin from 10.4->9.0, increased leukocytosis though remains on Zosyn. Will remove temporary dialysis catheter per nephrology. Will d/c IVF. Has been sitting up since earlier this morning, in good spirits, conversant, alert and oriented x3. Good appetite. Requested evaluation by Dr. Panda. Medications: Reviewed: Yes Medication Review Details: Active Medications Generic Name Dose Route Start Last Admin Trade Name Freq PRN Reason Stop Dose Admin Enoxaparin Sodium 40 mg 11/28/19 19:00 12/01/19 18:17 Lovenox SUBCUT 40 mg Q24H BABAK Administration Fentanyl 50 mcg 11/29/19 21:25 12/01/19 03:30 Sublimaze IVP 50 mcg Q2H PRN Administration SEVERE PAIN Heparin Sodium (Be ef Lung) 500 unit 11/29/19 13:28 12/02/19 08:17 Heparin Lock Flu sh IV 500 unit BID BABAK Administration Piperacillin Sod/T azobactam 50 mls @ 12.5 mls /hr 11/28/19 21:00 12/02/19 04:58 Sod 3.375 gm/ So dium Chloride IV 12.5 mls/hr Q8H BABAK Administration Dexmedetomidine HC l 400 mcg/ 104 mls @ 0 mls/h r 11/29/19 20:15 12/02/19 05:00 Sodium Chloride IV 0 mcg/kg/hr .Q0M BABAK 0 mls/hr Titration Protocol Per Protocol Lorazepam 2 mg 11/28/19 19:00 12/02/19 08:17 Ativan IVP 2 mg Q4H PRN Administration SEIZURES Nystatin 1 applic 11/28/19 20:00 12/01/19 18:18 Nystatin Powder TOPICAL 1 applic BID BABAK Administration Ondansetron HCl 4 mg 11/28/19 19:00 Zofran IVP Q6H PRN NAUSEA AND VOMITI NG Pantoprazole Sodiu m 40 mg 11/28/19 20:30 12/02/19 08:15 Protonix IVP 40 mg Q12H BABAK Administration carbamazepine [From Tegretol] Allergy (Verified 11/28/19 17:12) ADR-Gastrointestinal Upset levetiracetam [From Keppra] Allergy (Verified 11/28/19 17:12) ADR-Gastrointestinal Upset phenytoin [From Dilantin] Allergy (Verified 11/28/19 17:12) ADR-Gastrointestinal Upset Vitals/I&O/Wt Last Vital Signs Temp 98.4 F 12/02/19 08:00 Pulse 86 12/02/19 08:00 Resp 25 H 12/02/19 08:00 BP 181/103 12/02/19 08:00 Pulse Ox 99 12/02/19 08:00 12/01/19 12/02/19 12/02/19 22:59 06:59 14:59 Intake Total 894.443 / 1184.620 142.88 / 1327.500 Output Total 1500 / 1500 Balance 894.443 / 1184.620 -1357.12 / -172.500 Weight last 48 hrs Weight 51.256 kg Weight 51.256 kg Physical Exam Const: COMMON NORMALS: no acute distress and alert GENERAL APPEARANCE: cooperative NUTRITIONAL APPEARANCE: overweight ORIENTATION/CONSCIOUSNESS: Yes awake HENMT: COMMON NORMALS: normocephalic, atraumatic, hearing grossly normal bilaterally and moist oral mucous membranes HEAD & SCALP: normocephalic and atraumatic TEETH & GINGIVA: Yes edentulous OTHER: -Sutured laceration just above right eyebrow; noted bruising on right forehead, fading periorbital bruising around right eye Eye: COMMON NORMALS: Equal, round and reactive pupils present, EOMs intact bilaterally and conjunctivae normal CONJUNCTIVA: Yes conjunctivae normal PUPIL: Yes Equal, round and reactive pupils present Neck/C-Spine: COMMON NORMALS: full ROM GENERAL: Yes normal visual inspection and Yes trachea midline OTHER: -R IJ central line, L temporary HD catheter Resp: COMMON NORMALS: normal respiratory effort, No retractions and No use of accessory muscles EFFORT & INSPECTION: Yes symmetric chest movement and Yes tachypneic OTHER: -on RA -coarse breath sounds Cardio: COMMON NORMALS: regular rate, regular rhythm, S1 normal heart sound present, S2 normal heart sound present and No murmurs present (Cardio) RATE: regular rate RHYTHM: regular rhythm HEART SOUNDS: S1 normal heart sound present and S2 normal heart sound present GI: COMMON NORMALS: Normal to inspection, nondistended, normoactive bowel sounds present, Soft to palpation and non-tender INSPECTION: Yes central obesity PALPATION: Yes Soft to palpation : BLADDER/KIDNEY EXAM: Yes catheter in place Catheter type (Female): urethral Extremity: COMMON NORMALS: normal to inspection, full ROM and no clubbing, cyanosis or edema; negative for no pedal edema Neuro: COMMON NORMALS: moves all extremities, no focal motor deficits and no sensory deficits noted SENSORIUM/ORIENTATION: Yes alert and Yes somnolent SPEECH: Other neuro speech findings (intermittently slurred speech) Psych: COMMON NORMALS: mental status grossly normal, cooperative, normal affect and speech normal APPEARANCE: Yes unkempt ACTIVITY/MOTOR BEHAVIOR: Yes fidgeting SPEECH: Yes normal speech MOOD & AFFECT: Yes Labile affect present THOUGHT PROCESS: Tangential thought process present Skin: COMMON NORMALS: no rashes or lesions noted, no jaundice, no petechiae and no mottling GENERAL SKIN EXAM: no rashes or lesions noted and scars (linear scar on R patella (healed)) OTHER: -bruising on R forehead, R eyebrow laceration (sutured) and fading R periorbital bruising Urinary Catheter Management^: Aguayo: Cath Placed During This Visit: yes Reason for Continuing Indwelling Catheter: Accurate Measurement of Urinary Outpu t in Critically Ill Patients Urinary Catheter Date of Insertion: 11/28/19 Urinary Catheter Time of Insertion: 22:23 Data : 12/02/19 05:03 12/02/19 05:03 Micro: Microbiology 12/01/19 11:20 Gram Stain - Final Sputum - Expectorated Sputum A&P Assessment and plan (1) Phenobarbital toxicity: -Noted to have significantly elevated phenobarbital level (peaked at 88.2); noted significant improvement with HD session x 1 (30.2) -Reports taking medication as prescribed though was admitted earlier this month with suspicion for having taken higher than prescribed doses of phenobarbital which she takes for history of seizure disorder -Patient reports inability to tolerate other antiepileptic medications including Keppra, Dilantin, Tegretol all of which caused persistent nausea and vomiting -continue to monitor phenobarbital levels daily until within therapeutic range; half-life elimination is about 79 hrs (3-4 days). Phenobarbital levels normalized following dialysis -Poison control contacted, recommended trial of activated charcoal which was not possible due to patient's clinical decompensation; dialysis is alternative -Patient was encephalopathic on admission -Strict fall precautions, seizure precautions -Hold phenobarbital -Ativan PRN for seizure-like activity -We will need neurology evaluation particularly in light of suspicion that patient is not taking phenobarbital as prescribed and due to need for alternative antiepileptic agent -intubated following increased somnolence and inability to protect airway; extubated -Nephrology consult appreciated; on IVF, alkalinization of urine with bicarb; had dialysis due to increased levels with subsequent normalization -Surgery consult for temporary HD catheter placement by Dr. Patiño appreciated Status: Resolved (2) Respiratory failure, acute: -intubated following increased somnolence and inability to protect airway; remains on vent support -daily CXR, ABG while on vent -sedation while on mechanical ventilation -on Zosyn due to aspiration -sputum cx: GNRs, pending ID & sensitivity, gram stain-rare GNRs -blood cx: prelim negative -due to respiratory compromise and living in homeless half-way, tested for COVID- 19 which is negative, off isolation precautions -not oxygen dependent at baseline -close monitoring of respiratory status -has Aguayo catheter in place, monitor urine output Status: Acute (3) Acute metabolic encephalopathy: -Secondary to phenobarbital toxicity, component of encephalopathy secondary to acute UTI -Fall, aspiration, seizure precautions -as noted above Status: Acute (4) UTI (urinary tract infection): -Per patient she is prone to frequent UTIs -UA indicative of infection with noted pyuria, bacteriuria, positive nitrates, hematuria -urine cx: E.coli, sensitivity noted -blood cx: prelim negative -Currently afebrile, noted leukocytosis -on IV antibiotics Status: Acute Qualifiers: Hematuria presence: with hematuria Urinary tract infection type: acute cystitis Qualified Code(s): N30.01 - Acute cystitis with hematuria (5) Seizures: -Seizure precautions -Hold phenobarbital secondary to toxicity -Ativan PRN Status: Chronic (6) Traumatic brain injury: Status: Chronic Qualifiers: Encounter type: sequela Loss of consciousness presence/duration: without LOC Qualified Code(s): S06.9X0S - Unspecified intracranial injury without loss of consciousness, sequela (7) Anxiety and depression: -Has been referred to [facility] Status: Chronic (8) PTSD (post-traumatic stress disorder): Status: Chronic (9) Stroke: Status: Chronic Qualifiers: CVA mechanism: unspecified Qualified Code(s): I63.9 - Cerebral i nfarction, unspecified (10) Anemia: -Had been noted to be anemic during last admission, hemoglobin improved compared to discharge -Continue to monitor H&H -Current baseline hemoglobin appears to be around 10 -Given macrocytosis, noted folate (wnl) and B12 levels (low-normal); pending FOBT -has reported hx of prior GI bleed, on PPI and carafate Status: Chronic (11) Physical deconditioning: -Has had frequent falls recently, describes what sounds like an ataxic gait -PT evaluation once mental status improved and off vent support -Strict fall precautions, assistance with all out of bed activity -Reports that she falls due to buckling and instability of her right knee, has already been referred to Ortho. Recent knee x-ray done (11/27/19) showing primary OA, chondrocalcinosis -Would avoid narcotics due to noted altered mental status and risk of further respiratory depression. Would avoid tramadol due to risk of lowering seizure threshold. Would also avoid NSAIDs due to history of GI bleed and underlying anemia Status: Acute Additional A&P Information -Patient is currently living in half-way with , verbal report that she may not be able to return to facility on discharge. In light of second admission with suspicion for overmedication, physical deconditioning, frequent falls will request case management consult for possible placement. Psych evaluation requested and case discussed with Dr. Panda -mechanical soft diet -Inguinal intertrgo; nystatin powder, keep areas clean and dry -DVT ppx with lovenox, SCDs -GI ppx with PPI -Dispo: has been living in half-way -Code status: FULL code -transfer to floor Attestations Medical Necessity Statement*: Patient requires hospitalization for continued management of acute metabolic encephalopathy, status post extubation yesterday. Time Spent in Patient Care: 16 - 35 minutes (>than 50% of time spent in counselling and/or direct pt care on unit) . Coding Level of Care Code Acute Cogeneration Operator for Floresg Fwd Exam Comprehensive Diagnoses Phenobarbital toxicity T42.3X1A Respiratory failure, acute J96.00 Acute metabolic encephalopathy G93.41 UTI (urinary tract infection) N30.01 Hematuria presence: with hematuria Urinary tract infection type: acute cystitis Seizures R56.9 Traumatic brain injury S06.9X0S Encounter type: sequela Loss of consciousness presence/duration: without LOC Anxiety and depression F41.9; F32.9 PTSD (post-traumatic stress disorder) F43.10 Stroke I63.9 CVA mechanism: unspecified Anemia D64.9 Physical deconditioning R53.81
[2019-12-02] MEDS: enoxaparin 40 mg/0.4 mL Syringe SUBCUT (18:14)
[2019-12-02] MEDS: nystatin powder 15 gm Btl 1 APPLIC TOPICAL (18:15)
--- NOTE | 2019-12-02 18:55 | PC.NURSE ---
pt transferred to [facility] via wheelchair report off to Nicky STUBBS
[2019-12-02] MEDS: lactobacillus 1 Tablet 1 TAB PO (19:40)
[2019-12-02] MEDS: acetaminophen 325 mg Tablet 650 MG PO (19:40)
[2019-12-02] MEDS: pantoprazole DR 40 mg Tablet PO (19:40)
[2019-12-03] MEDS: acetaminophen 325 mg Tablet 650 MG PO ×2 (03:34→12:26)
[2019-12-03 03:52] LABS: Basophils # 0.1 10^3/uL (0.0-0.1); Basophils % 0.6 %; Eosinophils # 1.6 10^3/uL (0.0-0.8); Eosinophils % 10.3 %; Hematocrit 27.8 % (37.0-47.0); Hemoglobin 8.9 g/dL (11.5-15.3); Lymphocytes # 3.3 10^3/uL (0.8-4.8); Lymphocytes % 20.7 %; Mean Corpuscular Hemoglobin 32.5 pg (28.0-34.0); Mean Corpuscular Volume 101.5 fL (81-99); Mean Platelet Volume 11.6 fL (7.4-10.4); Monocytes # 2.5 10^3/uL (0.2-0.9); Monocytes % 15.6 %; Neutrophils % 52.4 %; Nucleated Red Blood Cells % 0 %; Platelet Count 237 10^3/cmm (130-400); Red Blood Count 2.74 10^6/uL (4.1-5.3); Red Cell Distribution Width 17.5 % (12.1-15.1); White Blood Count 15.9 10^3/uL (4.0-10.0)
[2019-12-03 04:01] VITALS: BP 152/76; PULSE 92; RESP 20; TEMP 37.4; O2SAT 93
[2019-12-03 04:17] LABS: Alanine Aminotransferase 11 U/L (0-33); Alkaline Phosphatase 126 IU/L (35-105); Anion Gap 14.3 (5-19); Aspartate Amino Transferase 18 U/L (0-32); Blood Urea Nitrogen 5 mg/dL (8-23); Calcium 8.6 mg/dL (8.5-10.5); Carbon Dioxide 22 mmol/L (22-29); Chloride 109 mmol/L (98-107); Globulin 2.9 g/dL (1.3-4.6); Glucose 90 mg/dL (65-115); Magnesium 1.8 mg/dL (1.7-2.3); Osmolality Calculated 289 mOsm/kg (285-295); Potassium 3.3 mmol/L (3.5-5.1); Sodium 142 mmol/L (136-145); Total Bilirubin 0.2 mg/dL (0.15-1.2); Total Protein 5.9 g/dL (6.6-8.7)
[2019-12-03] MEDS: piperacillin-tazobactam 3.375 GM in sodium chloride 0.9% (plus) 50 ML IV ×2 (06:28→12:30)
[2019-12-03 07:45] VITALS: BP 153/71; PULSE 84; RESP 16; TEMP 37; O2SAT 94
[2019-12-03] MEDS: HYDROcodone-acetaminophen 5-325 mg Tablet 1 TAB PO ×4 (08:49→22:33)
[2019-12-03] MEDS: lactobacillus 1 Tablet 1 TAB PO ×2 (08:49→18:19)
[2019-12-03] MEDS: pantoprazole DR 40 mg Tablet PO ×2 (08:50→18:19)
[2019-12-03] MEDS: nystatin powder 15 gm Btl 1 APPLIC TOPICAL ×2 (09:03→18:25)
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
--- NOTE | 2019-12-03 11:27 | PC.SOCIAL ---
IMM Updated Updated Pt on Pg 2 IMM. No questions voiced. Provided pt a copy. Signed, dated, & timed copy in chart.
--- NOTE | 2019-12-03 11:31 | P.PN_ITS ---
Subjective Subjective: Interval history: Had 400 mL urine output overnight and 1 bowel movement earlier this morning. Hemoglobin slightly dropped from 9.0->8.9, leukocytosis improved as well, stable renal function, noted mild hypokalemia. Sputum culture growing Klebsiella pneumonia, highly suspicious for aspiration so will request ST evaluation. Patient continues to be monitored in the hospital setting we will go ahead and resume her phenobarbital. Ambulating to/from the bathroom, no apparent distress, in good spirits. Dialysis catheter and Aguayo catheter removed. Medications: Reviewed: Yes Medication Review Details: Active Medications Generic Name Dose Route Start Last Admin Trade Name Freq PRN Reason Stop Dose Admin Acetaminophen 650 mg 12/02/19 19:21 12/03/19 03:34 Tylenol PO 650 mg Q6H PRN Administration Mild Pain or incr eased temp Hydrocodone Bitart /Acetaminophen 1 tab 12/02/19 19:21 12/03/19 08:49 [place] 5-325 Mg PO 1 tab Q4H PRN Administration MODERATE PAIN Enoxaparin Sodium 40 mg 11/28/19 19:00 12/02/19 18:14 Lovenox SUBCUT 40 mg Q24H BABAK Administration Heparin Sodium (Be ef Lung) 500 unit 11/29/19 13:28 12/03/19 08:50 Heparin Lock Flu sh IV 500 unit BID BABAK Administration Piperacillin Sod/T azobactam 50 mls @ 12.5 mls /hr 11/28/19 21:00 12/03/19 06:28 Sod 3.375 gm/ So dium Chloride IV 12.5 mls/hr Q8H BABAK Administration Lactobacillus Acid ophilus 1 tab 12/02/19 19:21 12/03/19 08:49 Floranex PO 1 tab BID BABAK Administration Lorazepam 2 mg 11/28/19 19:00 12/02/19 19:40 Ativan IVP 2 mg Q4H PRN Administration SEIZURES Nystatin 1 applic 11/28/19 20:00 12/03/19 09:03 Nystatin Powder TOPICAL 1 applic BID BABAK Administration Ondansetron HCl 4 mg 11/28/19 19:00 Zofran IVP Q6H PRN NAUSEA AND VOMITI NG Pantoprazole [place]od[place] m 40 mg 12/02/19 19:21 12/03/19 08:50 Protonix PO 40 mg BID BABAK Administration Phenobarbital 48.6 mg 12/03/19 18:00 Phenobarbital PO BID [facility] Potassium Chloride 40 meq 12/03/19 11:45 Klor-Con 10 PO DAILY [facility] carbamazepine [From Tegretol] Allergy (Verified 11/28/19 17:12) ADR-Gastrointestinal Upset levetiracetam [From Keppra] Allergy (Verified 11/28/19 17:12) ADR-Gastrointestinal Upset phenytoin [From Dilantin] Allergy (Verified 11/28/19 17:12) ADR-Gastrointestinal Upset Vitals/I&O/Wt Last Vital Signs Temp 98.6 F 12/03/19 07:45 Pulse 84 12/03/19 07:45 Resp 16 12/03/19 07:45 BP 153/71 12/03/19 07:45 Pulse Ox 94 12/03/19 07:45 12/02/19 12/03/19 12/03/19 22:59 06:59 14:59 Intake Total 340 / 630 170 / 800 120 / 120 Output Total 1100 / 1100 400 / 1500 Balance -760 / -470 -230 / -700 120 / 120 Weight last 48 hrs Weight 51.256 kg Physical Exam Const: COMMON NORMALS: no acute distress, patient oriented x3 and alert GENERAL APPEARANCE: cooperative NUTRITIONAL APPEARANCE: overweight O RIENTATION/CONSCIOUSNESS: Yes awake OTHER: -in good spirits HENMT: COMMON NORMALS: normocephalic, atraumatic, hearing grossly normal bilaterally and moist oral mucous membranes HEAD & SCALP: normocephalic and atraumatic TEETH & GINGIVA: Yes edentulous OTHER: -Sutured laceration just above right eyebrow; noted bruising on right forehead, fading periorbital bruising around right eye Eye: COMMON NORMALS: Equal, round and reactive pupils present, EOMs intact bilaterally and conjunctivae normal CONJUNCTIVA: Yes conjunctivae normal PUPIL: Yes Equal, round and reactive pupils present Neck/C-Spine: COMMON NORMALS: full ROM GENERAL: Yes normal visual inspection and Yes trachea midline OTHER: -R IJ central line Resp: COMMON NORMALS: normal respiratory effort, No retractions and No use of accessory muscles EFFORT & INSPECTION: Yes symmetric chest movement and Yes tachypneic OTHER: -on RA -coarse breath sounds Cardio: COMMON NORMALS: regular rate, regular rhythm, S1 normal heart sound present, S2 normal heart sound present and No murmurs present (Cardio) RATE: regular rate RHYTHM: regular rhythm HEART SOUNDS: S1 normal heart sound present and S2 normal heart sound present GI: COMMON NORMALS: Normal to inspection, nondistended, normoactive bowel sounds present, Soft to palpation and non-tender INSPECTION: Yes central obesity PALPATION: Yes Soft to palpation Extremity: COMMON NORMALS: normal to inspection, full ROM and no clubbing, cyanosis or edema; negative for no pedal edema Neuro: COMMON NORMALS: patient oriented x3, moves all extremities, no focal motor deficits and no sensory deficits noted SENSORIUM/ORIENTATION: Yes alert Psych: COMMON NORMALS: mental status grossly normal, cooperative, normal affect and speech normal ACTIVITY/MOTOR BEHAVIOR: Yes fidgeting SPEECH: Yes normal speech MOOD & AFFECT: Yes Labile affect present THOUGHT PROCESS: Tangential thought process present Skin: COMMON NORMALS: no rashes or lesions noted, no jaundice, no petechiae and no mottling GENERAL SKIN EXAM: no rashes or lesions noted and scars (linear scar on R patella (healed)) OTHER: -bruising on R forehead, R eyebrow laceration (sutured) and fading R periorbital bruising Urinary Catheter Management^: Aguayo: Cath Placed During This Visit: yes Reason for Continuing Indwelling Catheter: Accurate Measurement of Urinary Output in Critically Ill Patients Urinary Catheter Date of Insertion: 11/28/19 Urinary Catheter Time of Insertion: 22:23 Data : 12/03/19 03:35 12/03/19 03:35 Micro: Microbiology 12/01/19 11:20 Gram Stain - Final Sputum - Expectorated Sputum Sputum Culture - Final Klebsiella pneumoniae 12/02/19 11:30 Occult Blood (FIT) - Final Stool Routine Collection A&P Assessment and plan (1) Phenobarbital toxicity: -Noted to have significantly elevated phenobarbital level (peaked at 88.2); noted significant improvement with HD session x 1 (30.2) -Reports taking medication as prescribed though was admitted earlier this month with suspicion for having taken higher than prescribed doses of phenobarbital which she takes for history of seizure disorder -Patient reports inability to tolerate other antiepileptic medications including Keppra, Dilantin, Tegretol all of which caused persistent nausea and vomiting -continue to monitor phenobarbital levels daily until within therapeutic range; half-life elimination is about 79 hrs (3-4 days). Phenobarbital levels normalized following dialysis -Poison control contacted, recommended trial of activated charcoal which was not possible due to patient's clinical decompensation; dialysis is alternative -Patient was encephalopathic on admission; encephalopathy has resolved -Strict fall precautions, seizure precautions -resume phenobarbital as patient is in a monitored setting -Ativan PRN for seizure-like activity -We will need neurology evaluation particularly in light of suspicion that patient is not taking phenobarbital as prescribed and due to need for alternative antiepileptic agent. Alternative would be continued phenobarbital as long as medication can be dispensed in a controlled environment -intubated following increased somnolence and inability to protect airway; extubated on 12/01 -Nephrology consult appreciated; on IVF, alkalinization of urine with bicarb; had dialysis due to increased levels with subsequent normalization -Surgery consult for temporary HD catheter placement by Dr. Patiño appreciated; removal requested as no longer needed Status: Resolved (2) Respiratory failure, acute: -intubated following increased somnolence and inability to protect airway; remains on vent support -daily CXR, ABG while on vent -sedation while on mechanical ventilation -on Zosyn due to aspiration; will switch to Levaquin per sensitivity profile for dual coverage of PNA and UTI; check QTc -sputum cx: Klebsiella pneumonia, sensitivity noted, gram stain-rare GNRs. Highly suspicious for aspiration so request ST evaluation -blood cx: prelim negative -due to respiratory compromise and living in homeless care home, tested for COVID- 19 which is negative, off isolation precautions -not oxygen dependent at baseline -close monitoring of respiratory status -has Aguayo catheter in place, d/c today Status: Resolved (3) Acute metabolic encephalopathy: -Secondary to phenobarbital toxicity, component of encephalopathy secondary to acute UTI -Fall, aspiration, seizure precautions -as noted above Status: Acute (4) UTI (urinary tract infection): -Per patient she is prone to frequent UTIs -UA indicative of infection with noted pyuria, bacteriuria, positive nitrates, hematuria -urine cx: E.coli, sensitivity noted -blood cx: egative -afebrile, noted leukocytosis trending down -on IV antibiotics Status: Acute Qualifiers: Hematuria presence: with hematuria Urinary tract infection type: acute cystitis Qualified Code(s): N30.01 - Acute cystitis with hematuria (5) Seizures: -Seizure precautions -will resume phenobarbital today -Ativan PRN Status: Chronic (6) Traumatic brain injury: Status: Chronic Qualifiers: Encounter type: sequela Loss of consciousness presence/duration: without LOC Qualified Code(s): S06.9X0S - Unspecified intracranial injury without loss of consciousness, sequela (7) Anxiety and depression: -Has been referred to [facility] Status: Chronic (8) PTSD (post-traumatic stress disorder): Status: Chronic (9) Stroke: Status: Chronic Qualifiers: CVA mechanism: unspecified Qualified Code(s): I63.9 - Cerebral infarction, unspecified (10) Anemia: -Had been noted to be anemic during last admission, hemoglobin improved compared to discharge -Continue to monitor H&H -Current baseline hemoglobin appears to be around 10 -Given macrocytosis, noted folate (wnl) and B12 levels (low-normal); FOBT negative -has reported hx of prior GI bleed, on PPI and carafate Status: Chronic (11) Physical deconditioning: -Has had frequent falls recently, describes what sounds like an ataxic gait -PT evaluation once mental status improved and off vent support -Strict fall precautions, assistance with all out of bed activity -Reports that she falls due to buckling and instability of her right knee, has already been referred to Ortho. Recent knee x-ray done (11/27/19) showing primary OA, chondrocalcinosis -Would avoid narcotics due to noted altered mental status and risk of further r espiratory depression. Would avoid tramadol due to risk of lowering seizure threshold. Would also avoid NSAIDs due to history of GI bleed and underlying anemia Status: Acute Additional A&P Information -Patient is currently living in care home with , verbal report that she may not be able to return to facility on discharge. In light of second admission with suspicion for overmedication, physical deconditioning, frequent falls will request case management consult for possible placement. Psych evaluation requested and case discussed with Dr. Panda -mechanical soft diet pending ST evaluation -Inguinal intertrgo; nystatin powder, keep areas clean and dry -DVT ppx with lovenox, SCDs -GI ppx with PPI -Dispo: has been living in care home; case management trying to work on possible SNF placement for both patient and , preferably [facility] as [facility] needs [facility] -Code status: FULL code Attestations Medical Necessity Statement*: Patient requires hospitalization for continued monitoring, will resume phenobarbital today, noted aspiration pneumonia and UTI requiring continued antibiotic treatment; pending appropriate disposition. Time Spent in Patient Care: 16 - 35 minutes (>than 50% of time spent in counselling and/or direct pt care on unit) . 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
[2019-12-03 11:45] VITALS: BP 160/80; PULSE 87; RESP 16; TEMP 37; O2SAT 95
--- NOTE | 2019-12-03 11:48 | ECG_ITS ---
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 Measurements Intervals [place] Rate: 84 P: 46 MN: 172 QRS: -34 QRSD: 142 T: -83 QT: 391 QTc: 464 Interpretive Statements SINUS RHYTHM MARKED LEFT AXIS DEVIATION [QRS AXIS < -30] RIGHT BUNDLE BRANCH BLOCK [120+ ms QRS DURATION, UPRIGHT V1, 40+ ms S IN I/aVL/V4/V5/V6] LEFT VENTRICULAR HYPERTROPHY AND ST-T CHANGE [VOLTAGE CRITERIA PLUS ST/T ABNORMALITY] POSSIBLE SEPTAL MYOCARDIAL INFARCTION [30 ms Q WAVE IN V1/V2], OF INDETERMINATE AGE WARNING: DATA QUALITY MAY AFFECT INTERPRETATION Compared to ECG 11/28/2019 18:20:59 Right bundle-branch block now present ST (T wave) deviation now present Myocardial infarct finding now present Intraventricular conduction delay no longer present Electronically Signed On 12-03-2019 17:11:42 CDT by Navneet Cronin M.D. [email or web address]
[2019-12-03] MEDS: potassium chloride ER 10 mEq Tablet 40 MEQ PO (12:26)
[2019-12-03 12:49] VITALS: PULSE 89; O2SAT 95
[2019-12-03 16:00] VITALS: BP 170/75; PULSE 70; RESP 16; TEMP 36.8; O2SAT 96
[2019-12-03] MEDS: PHENobarbital 32.4 mg Tablet 48.6 MG PO (18:18)
[2019-12-03] MEDS: enoxaparin 40 mg/0.4 mL Syringe SUBCUT (18:25)
[2019-12-03 19:32] VITALS: BP 157/84; PULSE 78; RESP 18; TEMP 36.8; O2SAT 96
[2019-12-03] MEDS: trazodone 50 mg Tablet 25 MG PO (22:09)
[2019-12-04] MEDS: HYDROcodone-acetaminophen 5-325 mg Tablet 1 TAB PO ×3 (02:41→12:56)
[2019-12-04 04:00] VITALS: BP 152/69; PULSE 73; RESP 17; TEMP 37; O2SAT 97
[2019-12-04] MEDS: acetaminophen 325 mg Tablet 650 MG PO (04:43)
[2019-12-04] MEDS: levoFLOXacin 750 mg Tablet PO (04:51)
[2019-12-04 06:43] LABS: Potassium 3.7 mmol/L (3.5-5.1)
[2019-12-04 06:45] LABS: Basophils # 0.1 10^3/uL (0.0-0.1); Basophils % 0.5 %; Eosinophils # 1.3 10^3/uL (0.0-0.8); Eosinophils % 10.3 %; Hematocrit 28.3 % (37.0-47.0); Hemoglobin 8.9 g/dL (11.5-15.3); Lymphocytes # 3.3 10^3/uL (0.8-4.8); Lymphocytes % 25.5 %; Mean Corpuscular HGB Conc 31.4 g/dL (30.0-36.0); Mean Corpuscular Hemoglobin 31.4 pg (28.0-34.0); Monocytes # 2.2 10^3/uL (0.2-0.9); Neutrophils # 6.01 10^3/uL (1.8-7.7); Neutrophils % 46.3 %; Nucleated Red Blood Cells % 0 %; Platelet Count 250 10^3/cmm (130-400); Red Blood Count 2.83 10^6/uL (4.1-5.3); Red Cell Distribution Width 17.1 % (12.1-15.1)
[2019-12-04 07:42] VITALS: BP 164/78; PULSE 76; RESP 17; TEMP 36.6; O2SAT 93
[2019-12-04] MEDS: lactobacillus 1 Tablet 1 TAB PO (08:37)
[2019-12-04] MEDS: PHENobarbital 32.4 mg Tablet 48.6 MG PO (08:38)
[2019-12-04] MEDS: potassium chloride ER 10 mEq Tablet 40 MEQ PO (08:38)
[2019-12-04] MEDS: pantoprazole DR 40 mg Tablet PO (08:39)
[2019-12-04] MEDS: nystatin powder 15 gm Btl 1 APPLIC TOPICAL (08:42)
[2019-12-04 11:49] VITALS: BP 156/91; PULSE 85; RESP 17; TEMP 36.7; O2SAT 96
--- NOTE | 2019-12-04 13:59 | P.DS_ITS ---
Discharge Providers Date of Admission: 11/28/19 16:16 Date of Discharge: December 04, 2019 Attending Provider at Admission: Tanja Hein MD Attending Provider at Discharge: Tanja Hein MD Consults: Nephrology, general surgery Primary Care Provider: Dr. Shar Alas Diagnoses at Discharge Discharge Diagnosis (1) Phenobarbital toxicity: Status: Resolved Problem details: -Noted to have significantly elevated phenobarbital level (peaked at 88.2); noted significant improvement with HD session x 1 (30.2) -Reports taking medication as prescribed though was admitted earlier this month with suspicion for having taken higher than prescribed doses of phenobarbital which she takes for history of seizure disorder -Patient reports inability to tolerate other antiepileptic medications including Keppra, Dilantin, Tegretol all of which caused persistent nausea and vomiting -continue to monitor phenobarbital levels daily until within therapeutic range; half-life elimination is about 79 hrs (3-4 days). Phenobarbital levels normalized following dialysis -Poison control contacted, recommended trial of activated charcoal which was not possible due to patient's clinical decompensation; dialysis is alternative -Patient was encephalopathic on admission; encephalopathy has resolved -Strict fall precautions, seizure precautions -resume phenobarbital as patient is in a monitored setting -Ativan PRN for seizure-like activity -We will need neurology evaluation particularly in light of suspicion that patient is not taking phenobarbital as prescribed and due to need for alternative antiepileptic agent. Alternative would be continued phenobarbital as long as medication can be dispensed in a controlled environment -intubated following increased somnolence and inability to protect airway; extubated on 12/01 -Nephrology consult appreciated; on IVF, alkalinization of urine with bicarb; had dialysis due to increased levels with subsequent normalization -Surgery consult for temporary HD catheter placement by Dr. Patiño appreciated; removed Qualifiers: Encounter type: initial encounter Injury intent: undetermined intent Qualified Code(s): T42.3X4A - Poisoning by barbiturates, undetermined, initial encounter (2) Respiratory failure, acute: Status: Resolved Problem details: -intubated following increased somnolence and inability to protect airway; remains on vent support -daily CXR, ABG while on vent -sedation while on mechanical ventilation -on Zosyn due to aspiration; switched to Levaquin per sensitivity profile for dual coverage of PNA and UTI; QTc ok -sputum cx: Klebsiella pneumonia, sensitivity noted, gram stain-rare GNRs. Highly suspicious for aspiration so request ST evaluation -blood cx: negative -due to respiratory compromise and living in [facility], tested for COVID- 19 which is negative, off isolation precautions -not oxygen dependent at baseline -close monitoring of respiratory status -Aguayo catheter removed Qualifiers: Respiratory failure complication: hypoxia Qualified Code(s): J96.01 - Acute respiratory failure with hypoxia (3) Acute metabolic encephalopathy: Status: Resolved Problem details: -Secondary to phenobarbital toxicity, component of encephalopathy secondary to acute UTI -Fall, aspiration, seizure precautions -as noted above (4) UTI (urinary tract infection): Status: Acute Problem details: -Per patient she is prone to frequent UTIs -UA indicative of infection with noted pyuria, bacteriuria, positive nitrates, hematuria -urine cx: E.coli, sensitivity noted -blood cx: egative -afebrile, noted leukocytosis trending down -on antibiotics Qualifiers: Hematuria presence: with hematuria Urinary tract infection type: acute cystitis Qualified Code(s): N30.01 - Acute cystitis with hematuria (5) Seizures: Status: Chronic Problem details: -Seizure precautions -phenobarbital resumed -Ativan PRN (6) Traumatic brain injury: Status: Chronic Qualifiers: Encounter type: sequela Loss of consciousness presence/duration: without LOC Qualified Code(s): S06.9X0S - Unspecified intracranial injury without loss of consciousness, sequela (7) Anxiety and depression: Status: Chronic Problem details: -has been referred to [facility] (8) PTSD (post-traumatic stress disorder): Status: Chronic (9) Stroke: Status: Chronic Qualifiers: CVA mechanism: unspecified Qualified Code(s): I63.9 - Cerebral infarction, unspecified (10) Anemia: Status: Chronic Problem details: -Had been noted to be anemic during last admission, hemoglobin improved compared to discharge -Continue to monitor H&H -Current baseline hemoglobin appears to be around 10 -Given macrocytosis, noted folate (wnl) and B12 levels (low-normal); FOBT negative -has reported hx of prior GI bleed, on PPI and carafate Qualifiers: Anemia type: unspecified type Qualified Code(s): D64.9 - Anemia, unspecified (11) Physical deconditioning: Status: Acute Problem details: -Has had frequent falls recently, describes what sounds like an ataxic gait -PT evaluation once mental status improved and off vent support -Strict fall precautions, assistance with all out of bed activity -Reports that she falls due to buckling and instability of her right knee, has already been referred to Ortho. Recent knee x-ray done (11/27/19) showing primary OA, chondrocalcinosis -Would avoid narcotics due to noted altered mental status and risk of further respiratory depression. Would avoid tramadol due to risk of lowering seizure threshold. Would also avoid NSAIDs due to history of GI bleed and underlying anemia Other Information Additional DC diagnoses/information: -Patient is currently living in [facility] with , verbal report that she may not be able to return to facility on discharge. In light of second admission with suspicion for overmedication, physical deconditioning, frequent falls placement has been arranged, will be discharged to [facility]. Psych evaluation requested and case discussed with Dr. Panda -mechanical soft diet; ST evaluation appreciated, no overt aspiration noted -Inguinal intertrgo; nystatin powder, keep areas clean and dry Reason for Visit Reason for Visit: HEAD LAC S/P FALL; POSS OVERDOSE Hospital Course Hospital Course: Patient was admitted to the ICU secondary to noted phenobarbital toxicity with significantly elevated levels on admission. Initial plan was for discontinuation of medication and conservative management. However patient quickly decompensated while in the ER and was subsequently intubated for airway protection. Phenobarbital levels continue to increase and with concern for possible aspiration despite NG tube placement nephrology was consulted and recommended dialysis. This was in line with poison control recommendations as well. General surgery was consulted for temporary dialysis catheter placement. She responded well to dialysis and phenobarbital levels have normalized. I am unsure if ingestion was intentional or unintentional but in light of this being at least to the second admission for similar findings I discussed the case with psychiatry. They recommended dispensation of her medications in a controlled environment. Patient has been living at a [facility] with her but due to some behavioral issues can no longer reside there and in light of her medical issues and need for control dispensation of her antiepileptic medications SNF pl acement was arranged and she will be discharged to [facility] this afternoon. With normalization of her phenobarbital levels and the fact that she is in a hospitalized environment we have resumed her antiepileptic medications. She has not had any seizure-like activity during her hospital stay. We were able to wean her off the ventilator fairly quickly and she has done well in terms of her respiratory status. Is currently on room air. She has been hemodynamically stable as well. Sputum cultures have grown Klebsiella pneumonia suggestive of aspiration, she was evaluated by speech therapy and no overt aspiration noted. She had ready been receiving empiric antibiotic therapy which prior sensitivity profile from sputum cultures has been switched to oral Levaquin. She will need to continue this for several more days to complete her treatment course. Electrolytes were noted and replaced as needed. Once more medically stable she was transferred to the floor for continued care. Temporary dialysis catheter has been removed. Aguayo catheter has also been removed and she has been able to void independently without difficulty. She has been ambulatory with a walker and has been working with physical therapy. She is tolerating oral intake without difficulty. In light of difficulty with phenobarbital I have referred her to neurology for discussion on possible alternative antiepileptic agent as she reports previous issues with Tegretol, Keppra and Dilantin. She will need to follow-up with her primary care provider as well. She is advised to seek medical attention immediately should any of her symptoms recur. In addition patient was noted to be anemic so will need continued monitoring of her hemoglobin, preferably have CBC drawn on Saturday. Due to continued phenobarbital she will require intermittent monitoring of her levels as well as periodic checks of her renal function and liver function as well. Can be determined by her primary care provider versus neurology. Discharge Summary: -Patient to follow-up with primary care provider within 1 week or per SNF -Patient to follow up with Neurology as soon as next available appointment. Physical Exam Const: COMMON NORMALS: no acute distress, patient oriented x3 and alert GENERAL APPEARANCE: cooperative NUTRITIONAL APPEARANCE: overweight ORIENTATION/CONSCIOUSNESS: Yes awake OTHER: -in good spirits HENMT: COMMON NORMALS: normocephalic, atraumatic, hearing grossly normal bilaterally and moist oral mucous membranes HEAD & SCALP: normocephalic and atraumatic TEETH & GINGIVA: Yes edentulous OTHER: -Sutured laceration just above right eyebrow; noted bruising on right forehead, fading periorbital bruising around right eye Eye: COMMON NORMALS: Equal, round and reactive pupils present, EOMs intact bilaterally and conjunctivae normal CONJUNCTIVA: Yes conjunctivae normal PUPIL: Yes Equal, round and reactive pupils present Neck/C-Spine: COMMON NORMALS: full ROM GENERAL: Yes normal visual inspection and Yes trachea midline Resp: COMMON NORMALS: normal respiratory effort, No retractions and No use of accessory muscles EFFORT & INSPECTION: Yes symmetric chest movement and Yes tachypneic OTHER: -on RA Cardio: COMMON NORMALS: regular rate, regular rhythm, S1 normal heart sound present, S2 normal heart sound present and No murmurs present (Cardio) RATE: regular rate RHYTHM: regular rhythm HEART SOUNDS: S1 normal heart sound present and S2 normal heart sound present GI: COMMON NORMALS: Normal to inspection, nondistended, normoactive bowel sounds present, Soft to palpation and non-tender INSPECTION: Yes central obesity PALPATION: Yes Soft to palpation Extremity: COMMON NORMALS: normal to inspection, full ROM and no clubbing, cyanosis or edema; negative for no pedal edema Neuro: COMMON NORMALS: patient oriented x3, moves all extremities, no focal motor deficits and no sensory deficits noted SENSORIUM/ORIENTATION: Yes alert SPEECH: Other neuro speech findings (intermittently slurred speech) Psych: COMMON NORMALS: mental status grossly normal, cooperative, normal affect and speech normal ACTIVITY/MOTOR BEHAVIOR: Yes appropriate eye contact SPEECH: Yes normal speech MOOD & AFFECT: Yes Blunted affect present THOUGHT PROCESS: Tangential thought process present Skin: COMMON NORMALS: no rashes or lesions noted, no jaundice, no petechiae and no mottling GENERAL SKIN EXAM: no rashes or lesions noted and scars (linear scar on R patella (healed)) OTHER: -bruising on R forehead, R eyebrow laceration (sutured) and fading R periorbital bruising Urinary Catheter Management^: Aguayo: Cath Placed During This Visit: yes, but has since been removed by the nurse Reason for Continuing Indwelling Catheter: Decision to DC Catheter Urinary Catheter Date of Insertion: 11/28/19 Urinary Catheter Time of Insertion: 22:23 Date Urinary Catheter Removed: 12/03/19 Time Urinary Catheter Discontinued: 12:00 Discharge Data Data Completed and Pending: Completed Studies During Hospitalization Category Date Time Status CT head wo con* 7 0450 Stat Cat Scan 11/28/19 13:06 Completed CXRP [XR chest 1V portable [id number]] S tat Exams 11/29/19 12:36 Completed XR chest 1V cody ble [id number] Routine Exams 11/29/19 06:00 Completed XR chest 1V cody ble [id number] Routine Exams 11/29/19 17:00 Completed XR chest 1V cody ble [id number] Routine Exams 11/29/19 17:00 Completed XR chest 1V cody ble [id number] Routine Exams 12/01/19 08:11 Completed XR chest 1V cody ble [id number] Stat Exams 11/28/19 13:06 Completed XR chest 1V cody ble [id number] Stat Exams 11/28/19 20:28 Completed XR chest 1V cody ble [id number] Stat Exams 11/28/19 22:59 Completed Labs from last 24 hours 12/04/19 12/04/19 06:39 05:45 WBC 13.0 H RBC 2.83 L Hgb 8.9 L Hct 28.3 L MCV 100.0 H MCH 31.4 MCHC 31.4 RDW 17.1 H Plt Count 250 MPV 11.0 H Neut % (Auto) 46.3 Lymph % (Auto) 25.5 [place] % (Auto) 17.0 Eos % (Auto) 10.3 Baso % (Auto) 0.5 Neut # (Auto) 6.01 Lymph # (Auto) 3.3 [place] # (Auto) 2.2 H Eos # (Auto) 1.3 H Baso # (Auto) 0.1 Nucleated RBC % (a uto) 0 Nucleated RBCs # 0.0 Potassium 3.7 Vitals: Last Vital Signs Temp 98.0 F 12/04/19 11:49 Pulse 85 12/04/19 11:49 Resp 17 12/04/19 11:49 BP 156/91 12/04/19 11:49 Pulse Ox 96 12/04/19 11:49 Discharge Plan Discharge Patient Disposition: Xfer SNF Condition: Stable Prescriptions: New potassium chloride 10 mEq Tablet Extended Release 40 meq PO DAILY Qty: 30 RF: 0 levofloxacin 750 mg Tablet 750 mg PO DAILY Qty: 7 RF: 0 Floranex 1 million cell Tablet 1 tab PO BID Qty: 30 RF: 0 Continued phenobarbital 97.2 mg tablet 48.6 mg PO BID Qty: 60 RF: 0 Carafate 1 gram tablet 1 gm PO BID 30 Days Qty: 60 RF: 0 Protonix 40 mg tablet,delayed release (DR/EC) 40 mg PO BID 30 Days Qty: 60 RF: 0 Changed Marlow 5-325 mg tablet 1 tab PO Q8H PRN (Reason: pain) 30 Days Qty: 30 RF: 0 Discharge Orders: Discharge Order (Routine); Ordered 12/04/19 Ordered By: Tanja Hein Referrals: Isabel Gonzalez MD [Physician] - 01/13/20 1:15 pm ( Follow-up for seizure disorder, on phenobarbital with reported history of inability to tolerate other antiepileptic medications. Has been admitted to the hospital due to phenobarbital toxicity at least twice this year. You have an appointment on Jan 12 at 1:15pm) Shar Alas MD [Hospitalist] - 4-7 days Discharge Diet: Regular Discharge Activity: Increase activity as tolerated, Use walker/crutches as instructed and As per PT/OT instructions Activity Restrictions/Additional Instructions: -Please continue fall precautions -Patient should have repeat CBC drawn on Saturday to monitor hemoglobin -Patient should have phenobarbital levels checked particularly when altered periodically per primary care provider. Her renal function and liver enzymes will also need to be monitored periodically. Discharge Attestations Time Spent in Discharge Care*: greater than 30 min Specific Discharge Activities: Specific discharge activities: educating patient, discussing with leather case finisher/social workers/dc planners, documenting/other paperwork and evaluating patient/reviewing data Status at Discharge: Cognitive status at discharge: cognitively intact , Behavioral status at discharge: cooperative and independent in ADL's , Functional status at discharge: uses cane/walker Overall status at discharge: patient is progressing back to baseline Quality Metrics Clinical Quality Measures During this hospital stay, did patient experience: None Coding Level of Care Code Acute Basket Patcher for g Fwd Exam Comprehensive Diagnoses Phenobarbital toxicity T42.3X4A Encounter type: initial encounter Injury intent: undetermined intent Respiratory failure, acute J96.01 Respiratory failure complication: hypoxia Acute metabolic encephalopathy G93.41 UTI (urinary tract infection) N30.01 Hematuria presence: with hematuria Urinary tract infection type: acute cystitis Seizures R56.9 Traumatic brain injury S06.9X0S Encounter type: sequela Loss of consciousness presence/duration: without LOC Anxiety and depression F41.9; F32.9 PTSD (post-traumatic stress disorder) F43.10 Stroke I63.9 CVA mechanism: unspecified Anemia D64.9 Anemia type: unspecified type Physical deconditioning R53.81
[2019-12-04 14:35] VITALS: BP 156/91; PULSE 85; RESP 17; TEMP 36.7; O2SAT 96
[2019-12-04 16:00] VITALS: BP 171/96; PULSE 86; RESP 17; TEMP 36.8; O2SAT 95
== END 2019-12-04 16:00 | disposition skilled nursing facility (03) | DRG 917 ==
LOC: ER 17:39 → ICU 18:07 → MEDSURG 12-02 18:53
PROVIDERS: Family Medicine; Internal Medicine; Internal Medicine Nephrology; Admitting Provider Family Medicine; Visit Provider Family Medicine
DX: T42.3X1A Poisoning by barbiturates, accidental (unintentional), initial encounter (principal); G93.41 Metabolic encephalopathy; J96.00 Acute respiratory failure, unspecified whether with hypoxia or hypercapnia; N30.01 Acute cystitis with hematuria; Y92.009 Unspecified place in unspecified non-institutional (private) residence as the place of occurrence of the external cause; R56.9 Unspecified convulsions; F41.8 Other specified anxiety disorders; D64.9 Anemia, unspecified; F43.10 Post-traumatic stress disorder, unspecified; Z86.73 Personal history of transient ischemic attack (TIA), and cerebral infarction without residual deficits; K21.9 Gastro-esophageal reflux disease without esophagitis; Z87.820 Personal history of traumatic brain injury; F17.210 Nicotine dependence, cigarettes, uncomplicated
CPT/HCPCS: 12011; 12345; 31500; 36415; 36556; 36592; 36600; 51702; 70450; 71045; 73562; 80048; 80053; 80184; 80307; 81001; 81003; 82274; 82550; 82607; 82746; 82803; 83735; 84100; 84132; 85025; 86705; 86706; 86803; 87040; 87070; 87077; 87086; 87186; 87205; 87340; 87635; 90935; 92610; 93005; 94002; 94003; 94799; 96372; 96375; 97110; 97116; 97161; 97530; 99285; C1751; C9113; J0330; J0696; J1642; J1650; J2060; J2250; J2543; J2704; J3010; J3475; J3480; J3490

== ENCOUNTER 2019-12-22 11:22 | Emergency (ER) | payer MEDICARE, SELFPAY ==
[2019-12-22 11:31] VITALS: BP 128/71; PULSE 95; RESP 16; TEMP 36.4; O2SAT 94; BMI 28.3
--- NOTE | 2019-12-22 11:43 | USCV_ITS ---
Dian Russell Age: 69 Gender: F : 1950 Exam Date: 12/22/2019 12:35 Ordering Phys: Francis Paula DO Technologist: EDWARD BENAVIDEZ Exam Location: [facility] [place]_ Indication: SWELLING PROCEDURES: Venous duplex imaging was performed in only the right lower extremity. The following venous structures were evaluated: common femoral vein, profunda vein, proximal portion of the greater saphenous vein, superficial femoral vein, and the popliteal vein. In addition, the posterior tibial and peroneal trunk were evaluated. Serial compression, augmentation maneuvers, and spectral Doppler flow evaluation were performed. FINDINGS: Normal 2-D Doppler and augmentation and compressibility throughout the lower extremity venous structures. Additional imaging through the proximal calf veins also reveals no thrombus. Limited evaluation of the greater saphenous vein is patent with no thrombus.. Large area med to right pop appears to be a bakers cyst. 6.41x4.51x3.66cm. CONCLUSIONS No evidence of right lower extremity DVT. Large popliteal cyst with internal debris measuring 6.4 x 4.5 x 3.6cm Juan Reina MD (Electronically Signed) Final Date: 22 December 2019 17:18 S
--- NOTE | 2019-12-22 11:43 | XRR_ITS ---
PROCEDURE INFORMATION: Exam: XR Right Knee Exam date and time: 12/22/2019 12:11 PM Age: 69 years old Clinical indication: Pain; Knee; Right. TECHNIQUE: Imaging protocol: XR Right knee. Views: 3 views. COMPARISON: CR XR knee RT 3V* [id number] 11/27/2019 11:05 AM FINDINGS: Bones/joints: No fracture. No dislocation. There is tricompartmental osteoarthritis, most prominently in the medial femoral tibial joint compartment. There is chondrocalcinosis. Soft tissues: No acute soft tissue abnormality. XR/XR knee RT 3V* [id number] IMPRESSION: Osteoarthritis.
--- NOTE | 2019-12-22 11:49 | W.ED.EXTPRO ---
HPI - Extremity Problem General: Chief complaint: Extremity Problem,Nontraumatic Stated complaint: Chronic R knee pain Time Seen by Provider: 12/22/19 11:43 History of Present Illness: HPI Narrative: 69-year-old female presents emergency room complaining of right knee pain. She is obviously and obnoxiously intoxicated. Is difficult to get any history from her is difficult even to speak with her. She is verbally abusive to the staff and myself even with simple questions about her presenting complaint. Her accompanies her attempted to get some history from him when I could but she interrupted and became angry we had talked to him. He related that her main complaint was her knee she had fallen 3 weeks ago and so the stitches in the right lateral supraorbital ridge. She has been ambulatory on the knee. She is not had any fever not had any respiratory symptoms she has had some vomiting associated with heavy drinking no diarrhea denies fever that he is aware of. MD Complaint: extremity pain and extremity swelling Onset (ago): day(s) Pain Consistency: constant Location: right Quality: sharp Associated symptoms: Deny chest pain, fever(s), rash or short of breath Review of Systems Const: Denies: fever(s) ENMT: Denies: throat pain, ear or mastoid pain, nasal discharge or nasal congestion Card: Denies: chest pain Resp: Denies: dyspnea, productive cough or non-productive cough GI: Denies: abdominal pain, nausea, vomiting, hematemesis, coffee ground emesis, diarrhea, constipation, bloating, hematochezia or melena : Denies: flank pain, difficulty voiding, dysuria, urinary frequency or urinary urgency Skin/Breast: Denies: rash PFSH ED PFSH: Medical History (Updated 12/25/19 @ 07:33 by Fede Panda MD) Anemia -Had been noted to be anemic during last admission, hemoglobin improved compared to discharge -Continue to monitor H&H -Current baseline hemoglobin appears to be around 10 -Given macrocytosis, noted folate (wnl) and B12 levels (low-normal); FOBT negative -has reported hx of prior GI bleed, on PPI and carafate Anxiety and depression -has been referred to [facility] G[facility]D (gastroesophageal reflux disease) GI bleed PTSD (post-traumatic stress disorder) Seizure disorder Seizures -Seizure precautions -phenobarbital resumed -Ativan PRN Stroke Traumatic brain injury Surgical History H/O: hysterectomy History of right knee surgery S/P breast lumpectomy S/P dialysis catheter insertion (11/29/19) Family History Denies family history of Lung disease Hypertension Social History Smoking and tobacco status: heavy tobacco smoker cigarettes [ Other cigarette details: 1 pack/day ] Alcohol intake: never Substance/Drug Use: never Household members: spouse Housing: Homeless Marital status: Number of children: 2 Number of grandchildren: 6 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 Physical Exam Const: COMMON NORMALS: no acute distress GENERAL APPEARANCE: not cooperative HENMT: COMMON NORMALS: normocephalic, atraumatic and hearing grossly normal bilaterally HEAD & SCALP: normocephalic and atraumatic Eye: COMMON NORMALS: no scleral icterus Neck/C-Spine: COMMON NORMALS: full ROM, no lymphadenopathy, supple and no JVD Lymph: LYMPHATIC: no lymphadenopathy noted and no lymphedema noted Resp: COMMON NORMALS: normal respiratory effort, No retractions, No use of accessory muscles and clear to auscultation bilaterally AUSCULTATION: clear to auscultation bilaterally Cardio: COMMON NORMALS: no JVD, regular rate, regular rhythm and No murmurs present (Cardio) RATE: regular rate RHYTHM: regular rhythm GI: COMMON NORMALS: Soft to palpation and No hepatosplenomegaly present AUSCULTATION: Yes normoactive bowel sounds PALPATION: Yes Soft to palpation, No Tenderness to palpation present (GI), No Guarding due to palpation present (GI) and Yes No hepatosplenomegaly present Skin: COMMON NORMALS: no rashes or lesions noted NARRATIVE SKIN EXAM: Several sutures present on a well-healed irregular laceration that is on the lateral aspect of the right supraorbital ridge GENERAL SKIN EXAM: no rashes or lesions noted Course Vital Signs: Vital signs: Vital Signs Temperature 97.6 F 12/22/19 11:31 Pulse Rate 70 12/22/19 13:09 Respiratory Rate 16 12/22/19 13:09 Blood Pressure 142/76 12/22/19 13:09 Pulse Oximetry 98 12/22/19 13:09 MDM - Extremity (Nontraumatic) MDM Narrative: Medical decision making narrative: Recommend diclofenac and also recommend that she stop using alcohol. She is drunk and verbally abusive we will go ahead and discharge home with the diclofenac and follow-up with her primary care doctor Lab Data: Labs: Lab Results 12/22/19 12/22/19 Range/Units 12:23 12:23 WBC 12.4 H (4.0-10.0) 10^3/ uL RBC 3.78 L (4.1-5.3) 10^6/u L Hgb 11.8 (11.5-15.3) g/dL Hct 37.6 (37.0-47.0) % MCV 99.5 H (81-99) fL MCH 31.2 (28.0-34.0) pg MCHC 31.4 (30.0-36.0) g/dL RDW 17.5 H (12.1-15.1) % Plt Count 453 H (130-400) 10^3/c mm MPV 9.5 (7.4-10.4) fL Neut % (Auto) 57.4 % Lymph % (Auto) 30.5 % [place] % (Auto) 9.4 % Eos % (Auto) 2.0 % Baso % (Auto) 0.3 % Neut # (Auto) 7.11 (1.8-7.7) 10^3/u L Lymph # (Auto) 3.8 (0.8-4.8) 10^3/u L [place] # (Auto) 1.2 H (0.2-0.9) 10^3/u L Eos # (Auto) 0.3 (0.0-0.8) 10^3/u L Baso # (Auto) 0.0 (0.0-0.1) 10^3/u L Nucleated RBC % (a uto) 0 % Nucleated RBCs # 0.0 /100WBC C-Reactive Protein 0.3 (0.0-4.9) mg/L Discharge Plan Discharge Patient Disposition: Home Clinical Impression: Osteoarthritis of right knee, Alcohol abuse, Acute alcohol intoxication Condition: Stable Prescriptions: New diclofenac sodium 75 mg tablet,delayed release (/EC) 75 mg PO Q12H PRN (Reason: pain) Qty: 20 RF: 0 Discontinued ibuprofen 200 mg Tablet 800 mg PO PRN RF: 0 No Action potassium chloride 10 mEq Tablet Extended Release 40 meq PO DAILY Qty: 30 RF: 0 levofloxacin 750 mg Tablet 750 mg PO DAILY Qty: 7 RF: 0 Lactobacillus acidoph-L.bulgar [Floranex] 1 million cell Tablet 1 tab PO BID Qty: 30 RF: 0 phenobarbital 97.2 mg tablet 48.6 mg PO BID Qty: 60 RF: 0 hydrocodone-acetaminophen [[place]] 5-325 mg tablet 1 tab PO Q8H PRN (Reason: pain) 30 Days Qty: 30 RF: 0 sucralfate [Carafate] 1 gram tablet 1 gm PO BID 30 Days Qty: 60 RF: 0 pantoprazole [Protonix] 40 mg tablet,delayed release (DR/EC) 40 mg PO BID 30 Days Qty: 60 RF: 0 Discharge Orders: Discharge Order (Routine); Ordered 12/22/19 Ordered By: Francis Paula Discharge Diet: Usual diet Discharge Activity: Increase activity as tolerated Activity Restrictions/Additional Instructions: Avoid all alcohol use. 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
[2019-12-22 11:56] VITALS: PULSE 72
[2019-12-22 12:27] LABS: Basophils % 0.3 %; Eosinophils # 0.3 10^3/uL (0.0-0.8); Hematocrit 37.6 % (37.0-47.0); Hemoglobin 11.8 g/dL (11.5-15.3); Lymphocytes # 3.8 10^3/uL (0.8-4.8); Lymphocytes % 30.5 %; Mean Corpuscular HGB Conc 31.4 g/dL (30.0-36.0); Mean Corpuscular Hemoglobin 31.2 pg (28.0-34.0); Mean Corpuscular Volume 99.5 fL (81-99); Mean Platelet Volume 9.5 fL (7.4-10.4); Monocytes # 1.2 10^3/uL (0.2-0.9); Monocytes % 9.4 %; Neutrophils # 7.11 10^3/uL (1.8-7.7); Neutrophils % 57.4 %; Nucleated Red Blood Cells % 0 %; Platelet Count 453 10^3/cmm (130-400); Red Blood Count 3.78 10^6/uL (4.1-5.3); Red Cell Distribution Width 17.5 % (12.1-15.1); White Blood Count 12.4 10^3/uL (4.0-10.0)
[2019-12-22] MEDS: ketorolac 30 mg/mL INJ 15 MG IVP (12:28)
[2019-12-22 12:47] LABS: C Reactive Protein 0.3 mg/L (0.0-4.9)
[2019-12-22 13:09] VITALS: BP 142/76; PULSE 70; RESP 16; O2SAT 98
== END 2019-12-22 13:09 | disposition home or self-care (01) ==
PROVIDERS: Emergency Provider Family Medicine
DX: M17.11 Unilateral primary osteoarthritis, right knee (principal); F10.129 Alcohol abuse with intoxication, unspecified; Y90.9 Presence of alcohol in blood, level not specified; Z86.73 Personal history of transient ischemic attack (TIA), and cerebral infarction without residual deficits; F17.210 Nicotine dependence, cigarettes, uncomplicated
CPT/HCPCS: 12345; 73562; 85025; 86140; 93971; 96374; 99283; J1885

== ENCOUNTER 2019-12-30 18:58 | Emergency (ER) | payer MEDICARE, MEDICAID, SELFPAY ==
[2019-12-30 19:07] VITALS: BP 195/75; PULSE 88; RESP 14; TEMP 36.7; O2SAT 98; BMI 26.5
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
[2019-12-30] MEDS: LORazepam 2 mg/mL INJ 1 mL 1 MG IM (19:30)
[2019-12-30 19:39] VITALS: BP 161/72; PULSE 97; RESP 20; O2SAT 90
== END 2019-12-30 19:49 | disposition home or self-care (01) ==
LOC: ER 19:42
PROVIDERS: Emergency Provider Emergency Medicine
DX: G40.909 Epilepsy, unspecified, not intractable, without status epilepticus (principal); Z86.73 Personal history of transient ischemic attack (TIA), and cerebral infarction without residual deficits; F17.210 Nicotine dependence, cigarettes, uncomplicated
CPT/HCPCS: 12345; 96372; 99281; 99283; J2060

== ENCOUNTER 2020-01-11 14:36 | Emergency (ER) | payer MEDICARE, SELFPAY ==
[2020-01-11 14:38] VITALS: BP 154/84; PULSE 88; RESP 16; TEMP 36.4; O2SAT 88; BMI 27.3
[2020-01-11 14:58] VITALS: BP 146/73; PULSE 70; RESP 15; TEMP 36.4; O2SAT 92
--- NOTE | 2020-01-11 14:58 | ED_ITS ---
Documented by User: Francis Paula DO 01/12/20 09:01 HPI - General Adult General: Chief complaint: General Medical Stated complaint: GEN WEAKNESS Time Seen by Provider: 01/11/20 14:58 History of Present Illness: HPI narrative: 69-year-old female comes in via EMS. They found her in her home after being called for a wellbeing check. The bed was soaked in urine patient states she had not gotten out of bed because of her knees and hips were hurting she is stating she needs a bilateral knee replacement. She is lethargic and slurring her speech she denies using any alcohol or taking excessive pain medications. Is difficult to get any meaningful history from her. Onset (ago): day(s) Location: left, right and lower extremity Radiation: non-radiation Severity: severe Quality: aching Pain Consistency: constant Relieving factors: none Exacerbating factors: none Review of Systems General: Reports: ROS unobtainable due to medical condition and ROS unobtainable due to mental status [facility] ED PFSH: Medical History Anemia -Had been noted to be anemic during last admission, hemoglobin improved compared to discharge -Continue to monitor H&H -Current baseline hemoglobin appears to be around 10 -Given macrocytosis, noted folate (wnl) and B12 levels (low-normal); FOBT negative -has reported hx of prior GI bleed, on PPI and carafate Anxiety and depression -has been referred to [facility] G[facility]D (gastroesophageal reflux disease) GI bleed PTSD (post-traumatic stress disorder) Seizure disorder Seizures -Seizure precautions -phenobarbital resumed -Ativan PRN Stroke Traumatic brain injury Surgical History H/O: hysterectomy History of right knee surgery S/P breast lumpectomy S/P dialysis catheter insertion (11/29/19) Family History Denies family history of Lung disease Hypertension Social History Smoking and tobacco status: heavy tobacco smoker cigarettes [ Other cigarette details: 1 pack/day ] Alcohol intake: never Household members: spouse Housing: Homeless Marital status: Number of children: 2 Number of grandchildren: 6 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 Physical Exam Const: COMMON NORMALS: no acute distress GENERAL APPEARANCE: comfortable HENMT: COMMON NORMALS: normocephalic and atraumatic HEAD & SCALP: normocephalic and atraumatic Eye: COMMON NORMALS: conjunctivae normal and no scleral icterus CONJUNCTIVA: Yes conjunctivae normal Neck/C-Spine: COMMON NORMALS: full ROM, no lymphadenopathy, supple and no JVD Lymph: LYMPHATIC: no lymphadenopathy noted and no lymphedema noted Resp: COMMON NORMALS: normal respiratory effort, No retractions, No use of accessory muscles and clear to auscultation bilaterally AUSCULTATION: clear to auscultation bilaterally Cardio: COMMON NORMALS: no JVD, regular rate, regular rhythm and No murmurs present (Cardio) RATE: regular rate RHYTHM: regular rhythm GI: COMMON NORMALS: Soft to palpation and No hepatosplenomegaly present AUSCULTATION: Yes normoactive bowel sounds PALPATION: Yes Soft to palpation, No Tenderness to palpation present (GI), No Guarding due to palpation present (GI) and Yes No hepatosplenomegaly present Extremity: COMMON NORMALS: normal to inspection, capillary refill normal, no clubbing, cyanosis or edema, no calf tenderness and no pedal edema Skin: NARRATIVE SKIN EXAM: Erythema on the right side of the neck but no abscess or fluctuance mildly tender to touch. Course Vital Signs: Vital signs: Vital Signs Temperature 97.6 F 01/11/20 14:58 Pulse Rate 85 01/11/20 19:55 Respiratory Rate 25 H 01/11/20 19:55 Blood Pressure 112/67 01/11/20 19:55 Pulse Oximetry 92 01/11/20 19:55 MDM - General Adult MDM Narrative: Medical decision making narrative: Care transferred to Dr. Martínez at change of shift. Previously the patient has overdosed on phenobarbital suspect she may be overdosed on that again given her clinical appearance we are awaiting a phenobarb level. To further complicate matters was a shortage of ICU beds available in the hospital. See Dr. Martínez's note for final diagnosis and disposition Lab Data: Labs: Lab Results 08/31/20 08/31/20 08/31/20 Range/Units 15:32 16:06 16:06 WBC (4.0-10.0) 10^3/ uL RBC (4.1-5.3) 10^6/u L Hgb (11.5-15.3) g/dL Hct (37.0-47.0) % MCV (81-99) fL MCH (28.0-34.0) pg MCHC (30.0-36.0) g/dL RDW (12.1-15.1) % Plt Count (130-400) 10^3/c mm MPV (7.4-10.4) fL Neut % (Auto) % Lymph % (Auto) % Elk % (Auto) % Eos % (Auto) % Baso % (Auto) % Neut # (Auto) (1.8-7.7) 10^3/u L Lymph # (Auto) (0.8-4.8) 10^3/u L Elk # (Auto) (0.2-0.9) 10^3/u L Eos # (Auto) (0.0-0.8) 10^3/u L Baso # (Auto) (0.0-0.1) 10^3/u L Nucleated RBC % (a uto) % Nucleated RBCs # /100WBC Specimen Type Arterial Sample Site Radial, left ABG pH 7.43 (7.35-7.45) ABG pCO2 41.8 (35-45) mmHg ABG pO2 60.8 L (80.0-100.0) mmH g ABG HCO3 27.7 H (22-26) mmol/L ABG O2 Saturation 92.5 ABG Base Excess 3.0 H (-2.0-2.0) mmol/ L Brenden Test Pos A-a O2 Gradient 4.8 L (5-10) mmHg Hematocrit 37.1 (37-47) % Hgb O2 Saturation 89.9 L (95-100) % Carboxyhemoglobin 1.9 (0.4-20.1) %THgb Methemoglobin 0.9 (0.4-1.5) % Total Hemoglobin 12.1 (12-16) g/dL Sodium 137.0 135 L (131-143) mmol/L Potassium 3.2 L 3.5 (3.5-5.0) mmol/L Glucose 123.0 H 124 H (70-115) mg/dL Ionized Calcium 1.3 (1.1-1.4) mmol/L O2 Delivery Device None FiO2 21.0 % Relationship Management Lead ID Ed Chloride 96 L (98-107) mmol/L Carbon Dioxide 27 (22-29) mmol/L Anion Gap 15.5 (5-19) BUN 11 (8-23) mg/dL Creatinine 0.4 L (0.5-0.9) mg/dL GFR Calculation Not Reportable Calculated Osmolal ity 277 L (285-295) mOsm/k g Lactic Acid 1.6 (0.5-2.2) mmol/L Calcium 10.3 (8.5-10.5) mg/dL Total Bilirubin 0.4 (0.15-1.2) mg/dL AST 27 (0-32) U/L ALT 19 (0-33) U/L Alkaline Phosphata se 136 H (35-105) IU/L Creatine Kinase 250 H (26-192) U/L Total Protein 7.9 (6.6-8.7) g/dL Albumin 3.4 L (3.5-5.2) g/dL Globulin 4.5 (1.3-4.6) g/dL Lipase 18 (13-60) U/L Urine Color (Yellow) Urine Appearance (CLEAR) Urine pH (5-7) Ur Specific Gravit y (1.005-1.030) Urine Protein (Negative) Urine Glucose (UA) (Normal) Urine Ketones (Negative) Urine Blood (Negative) Urine Nitrate (Negative) Urine Bilirubin (NEGATIVE) Urine Urobilinogen (Negative) mg/dL Ur Leukocyte Stacey ase (Negative) Urine Opiates Scre en (Negative) ng/mL Ur Barbiturates Sc reen (Negative) ng/mL Ur Phencyclidine S crn (Negative) ng/mL Ur Amphetamines Sc reen (Negative) ng/mL Phenobarbital (10-30) ug/mL U Benzodiazepines Scrn (Negative) ng/mL Urine Cocaine Scre en (Negative) ng/mL U Marijuana (THC) Screen (Negative) ng/mL Ethyl Alcohol < 10 (0-10) mg/dL Serum Ketones Negative (Negative) 01/11/20 01/11/20 01/11/20 Range/Units 16:41 16:41 17:05 WBC 13.9 H (4.0-10.0) 10^3/ uL RBC 3.70 L (4.1-5.3) 10^6/u L Hgb 11.7 (11.5-15.3) g/dL Hct 37.5 (37.0-47.0) % MCV 101.4 H (81-99) fL MCH 31.6 (28.0-34.0) pg MCHC 31.2 (30.0-36.0) g/dL RDW 15.3 H (12.1-15.1) % Plt Count 621 H (130-400) 10^3/c mm MPV 10.3 (7.4-10.4) fL Neut % (Auto) 62.1 % Lymph % (Auto) 18.8 % Elk % (Auto) 16.6 % Eos % (Auto) 1.7 % Baso % (Auto) 0.4 % Neut # (Auto) 8.58 H (1.8-7.7) 10^3/u L Lymph # (Auto) 2.6 (0.8-4.8) 10^3/u L Elk # (Auto) 2.3 H (0.2-0.9) 10^3/u L Eos # (Auto) 0.2 (0.0-0.8) 10^3/u L Baso # (Auto) 0.1 (0.0-0.1) 10^3/u L Nucleated RBC % (a uto) 0 % Nucleated RBCs # 0.0 /100WBC Specimen Type Sample Site ABG pH (7.35-7.45) ABG pCO2 (35-45) mmHg ABG pO2 (80.0-100.0) mmH g ABG HCO3 (22-26) mmol/L ABG O2 Saturation ABG Base Excess (-2.0-2.0) mmol/ L Brenden Test A-a O2 Gradient (5-10) mmHg Hematocrit (37-47) % Hgb O2 Saturation (95-100) % Carboxyhemoglobin (0.4-20.1) %THgb Methemoglobin (0.4-1.5) % Total Hemoglobin (12-16) g/dL Sodium (131-143) mmol/L Potassium (3.5-5.0) mmol/L Glucose (70-115) mg/dL Ionized Calcium (1.1-1.4) mmol/L O2 Delivery Device FiO2 % Relationship Management Lead ID Chloride (98-107) mmol/L Carbon Dioxide (22-29) mmol/L Anion Gap (5-19) BUN (8-23) mg/dL Creatinine (0.5-0.9) mg/dL GFR Calculation Calculated Osmolal ity (285-295) mOsm/k g Lactic Acid (0.5-2.2) mmol/L Calcium (8.5-10.5) mg/dL Total Bilirubin (0.15-1.2) mg/dL AST (0-32) U/L ALT (0-33) U/L Alkaline Phosphata se (35-105) IU/L Creatine Kinase (26-192) U/L Total Protein (6.6-8.7) g/dL Albumin (3.5-5.2) g/dL Globulin (1.3-4.6) g/dL Lipase (13-60) U/L Urine Color Yellow (Yellow) Urine Appearance Clear (CLEAR) Urine pH 6.5 (5-7) Ur Specific Gravit y 1.010 (1.005-1.030) Urine Protein Neg (Negative) Urine Glucose (UA) Norm (Normal) Urine Ketones 1+ H (Negative) Urine Blood Neg (Negative) Urine Nitrate Negative (Negative) Urine Bilirubin 1+ H (NEGATIVE) Urine Urobilinogen 4 H (Negative) mg/dL Ur Leukocyte Stacey ase Negative (Negative) Urine Opiates Scre en Negative (Negative) ng/mL Ur Barbiturates Sc reen Positive H (Negative) ng/mL Ur Phencyclidine S crn Negative (Negative) ng/mL Ur Amphetamines Sc reen Negative (Negative) ng/mL Phenobarbital (10-30) ug/mL U Benzodiazepines Scrn Negative (Negative) ng/mL Urine Cocaine Scre en Negative (Negative) ng/mL U Marijuana (THC) Screen Negative (Negative) ng/mL Ethyl Alcohol (0-10) mg/dL Serum Ketones (Negative) 01/11/20 Range/Units 17:59 WBC (4.0-10.0) 10^3/ uL RBC (4.1-5.3) 10^6/u L Hgb (11.5-15.3) g/dL Hct (37.0-47.0) % MCV (81-99) fL MCH (28.0-34.0) pg MCHC (30.0-36.0) g/dL RDW (12.1-15.1) % Plt Count (130-400) 10^3/c mm MPV (7.4-10.4) fL Neut % (Auto) % Lymph % (Auto) % Elk % (Auto) % Eos % (Auto) % Baso % (Auto) % Neut # (Auto) (1.8-7.7) 10^3/u L Lymph # (Auto) (0.8-4.8) 10^3/u L Elk # (Auto) (0.2-0.9) 10^3/u L Eos # (Auto) (0.0-0.8) 10^3/u L Baso # (Auto) (0.0-0.1) 10^3/u L Nucleated RBC % (a uto) % Nucleated RBCs # /100WBC Specimen Type Sample Site ABG pH (7.35-7.45) ABG pCO2 (35-45) mmHg ABG pO2 (80.0-100.0) mmH g ABG HCO3 (22-26) mmol/L ABG O2 Saturation ABG Base Excess (-2.0-2.0) mmol/ L Brenden Test A-a O2 Gradient (5-10) mmHg Hematocrit (37-47) % Hgb O2 Saturation (95-100) % Carboxyhemoglobin (0.4-20.1) %THgb Methemoglobin (0.4-1.5) % Total Hemoglobin (12-16) g/dL Sodium (131-143) mmol/L Potassium (3.5-5.0) mmol/L Glucose (70-115) mg/dL Ionized Calcium (1.1-1.4) mmol/L O2 Delivery Device FiO2 % Relationship Management Lead ID Chloride (98-107) mmol/L Carbon Dioxide (22-29) mmol/L Anion Gap (5-19) BUN (8-23) mg/dL Creatinine (0.5-0.9) mg/dL GFR Calculation Calculated Osmolal ity (285-295) mOsm/k g Lactic Acid (0.5-2.2) mmol/L Calcium (8.5-10.5) mg/dL Total Bilirubin (0.15-1.2) mg/dL AST (0-32) U/L ALT (0-33) U/L Alkaline Phosphata se (35-105) IU/L Creatine Kinase (26-192) U/L Total Protein (6.6-8.7) g/dL Albumin (3.5-5.2) g/dL Globulin (1.3-4.6) g/dL Lipase (13-60) U/L Urine Color (Yellow) Urine Appearance (CLEAR) Urine pH (5-7) Ur Specific Gravit y (1.005-1.030) Urine Protein (Negative) Urine Glucose (UA) (Normal) Urine Ketones (Negative) Urine Blood (Negative) Urine Nitrate (Negative) Urine Bilirubin (NEGATIVE) Urine Urobilinogen (Negative) mg/dL Ur Leukocyte Stacey ase (Negative) Urine Opiates Scre en (Negative) ng/mL Ur Barbiturates Sc reen (Negative) ng/mL Ur Phencyclidine S crn (Negative) ng/mL Ur Amphetamines Sc reen (Negative) ng/mL Phenobarbital 51.4 H* (10-30) ug/mL U Benzodiazepines Scrn (Negative) ng/mL Urine Cocaine Scre en (Negative) ng/mL U Marijuana (THC) Screen (Negative) ng/mL Ethyl Alcohol (0-10) mg/dL Serum Ketones (Negative) Discharge Plan Discharge Patient Disposition: Xfer Other Clinical Impression: Overdose Qualifiers: Encounter type: initial encounter Condition: Stable Discharge Date/Time: 01/11/20 22:30 Coding Level of Care Code ED Worm Farmer for Chg Fwd Documented by User: Thien Martínez MD 01/11/20 19:56 HPI - General Adult General: Chief complaint: General Medical Stated complaint: GEN WEAKNESS Time Seen by Provider: 01/11/20 14:58 PFSH ED PFSH: Medical History Anemia -Had been noted to be anemic during last admission, hemoglobin improved compared to discharge -Continue to monitor H&H -Current baseline hemoglobin appears to be around 10 -Given macrocytosis, noted folate (wnl) and B12 levels (low-normal); FOBT negative -has reported hx of prior GI bleed, on PPI and carafate Anxiety and depression -has been referred to [facility] (gastroesophageal reflux disease) GI bleed PTSD (post-traumatic stress disorder) Seizure disorder Seizures -Seizure precautions -phenobarbital resumed -Ativan PRN Stroke Traumatic brain injury Surgical History H/O: hysterectomy History of right knee surgery S/P breast lumpectomy S/P dialysis catheter insertion (11/29/19) Family History Denies family history of Lung disease Hypertension Social History Smoking and tobacco status: heavy tobacco smoker cigarettes [ Other cigarette details: 1 pack/day ] Alcohol intake: never Household members: spouse Housing: Homeless Marital status: Number of children: 2 Number of grandchildren: 6 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 I spoke to Dr. Poon when he recommended ICU admission and we are currently full of ICU and will have to transfer due to bed availability. I spoke to physician at [facility] and will transfer to the ICU there. Lab Data: Labs: Lab Results 01/11/20 01/11/20 01/11/20 Range/Units 15:32 16:06 16:06 WBC (4.0-10.0) 10^3/ uL RBC (4.1-5.3) 10^6/u L Hgb (11.5-15.3) g/dL Hct (37.0-47.0) % MCV (81-99) fL MCH (28.0-34.0) pg MCHC (30.0-36.0) g/dL RDW (12.1-15.1) % Plt Count (130-400) 10^3/c mm MPV (7.4-10.4) fL Neut % (Auto) % Lymph % (Auto) % Elk % (Auto) % Eos % (Auto) % Baso % (Auto) % Neut # (Auto) (1.8-7.7) 10^3/u L Lymph # (Auto) (0.8-4.8) 10^3/u L Elk # (Auto) (0.2-0.9) 10^3/u L Eos # (Auto) (0.0-0.8) 10^3/u L Baso # (Auto) (0.0-0.1) 10^3/u L Nucleated RBC % (a uto) % Nucleated RBCs # /100WBC Specimen Type Arterial Sample Site Radial, left ABG pH 7.43 (7.35-7.45) ABG pCO2 41.8 (35-45) mmHg ABG pO2 60.8 L (80.0-100.0) mmH g ABG HCO3 27.7 H (22-26) mmol/L ABG O2 Saturation 92.5 ABG Base Excess 3.0 H (-2.0-2.0) mmol/ L Brenden Test Pos A-a O2 Gradient 4.8 L (5-10) mmHg Hematocrit 37.1 (37-47) % Hgb O2 Saturation 89.9 L (95-100) % Carboxyhemoglobin 1.9 (0.4-20.1) %THgb Methemoglobin 0.9 (0.4-1.5) % Total Hemoglobin 12.1 (12-16) g/dL Sodium 137.0 135 L (131-143) mmol/L Potassium 3.2 L 3.5 (3.5-5.0) mmol/L Glucose 123.0 H 124 H (70-115) mg/dL Ionized Calcium 1.3 (1.1-1.4) mmol/L O2 Delivery Device None FiO2 21.0 % Relationship Management Lead ID Ed Chloride 96 L (98-107) mmol/L Carbon Dioxide 27 (22-29) mmol/L Anion Gap 15.5 (5-19) BUN 11 (8-23) mg/dL Creatinine 0.4 L (0.5-0.9) mg/dL GFR Calculation Not Reportable Calculated Osmolal ity 277 L (285-295) mOsm/k g Lactic Acid 1.6 (0.5-2.2) mmol/L Calcium 10.3 (8.5-10.5) mg/dL Total Bilirubin 0.4 (0.15-1.2) mg/dL AST 27 (0-32) U/L ALT 19 (0-33) U/L Alkaline Phosphata se 136 H (35-105) IU/L Creatine Kinase 250 H (26-192) U/L Total Protein 7.9 (6.6-8.7) g/dL Albumin 3.4 L (3.5-5.2) g/dL Globulin 4.5 (1.3-4.6) g/dL Lipase 18 (13-60) U/L Urine Color (Yellow) Urine Appearance (CLEAR) Urine pH (5-7) Ur Specific Gravit y (1.005-1.030) Urine Protein (Negative) Urine Glucose (UA) (Normal) Urine Ketones (Negative) Urine Blood (Negative) Urine Nitrate (Negative) Urine Bilirubin (NEGATIVE) Urine Urobilinogen (Negative) mg/dL Ur Leukocyte Stacey ase (Negative) Urine Opiates Scre en (Negative) ng/mL Ur Barbiturates Sc reen (Negative) ng/mL Ur Phencyclidine S crn (Negative) ng/mL Ur Amphetamines Sc reen (Negative) ng/mL Phenobarbital (10-30) ug/mL U Benzodiazepines Scrn (Negative) ng/mL Urine Cocaine Scre en (Negative) ng/mL U Marijuana (THC) Screen (Negative) ng/mL Ethyl Alcohol < 10 (0-10) mg/dL Serum Ketones Negative (Negative) 01/11/20 01/11/20 01/11/20 Range/Units 16:41 16:41 17:05 WBC 13.9 H (4.0-10.0) 10^3/ uL RBC 3.70 L (4.1-5.3) 10^6/u L Hgb 11.7 (11.5-15.3) g/dL Hct 37.5 (37.0-47.0) % MCV 101.4 H (81-99) fL MCH 31.6 (28.0-34.0) pg MCHC 31.2 (30.0-36.0) g/dL RDW 15.3 H (12.1-15.1) % Plt Count 621 H (130-400) 10^3/c mm MPV 10.3 (7.4-10.4) fL Neut % (Auto) 62.1 % Lymph % (Auto) 18.8 % Elk % (Auto) 16.6 % Eos % (Auto) 1.7 % Baso % (Auto) 0.4 % Neut # (Auto) 8.58 H (1.8-7.7) 10^3/u L Lymph # (Auto) 2.6 (0.8-4.8) 10^3/u L Elk # (Auto) 2.3 H (0.2-0.9) 10^3/u L Eos # (Auto) 0.2 (0.0-0.8) 10^3/u L Baso # (Auto) 0.1 (0.0-0.1) 10^3/u L Nucleated RBC % (a uto) 0 % Nucleated RBCs # 0.0 /100WBC Specimen Type Sample Site ABG pH (7.35-7.45) ABG pCO2 (35-45) mmHg ABG pO2 (80.0-100.0) mmH g ABG HCO3 (22-26) mmol/L ABG O2 Saturation ABG Base Excess (-2.0-2.0) mmol/ L Brenden Test A-a O2 Gradient (5-10) mmHg Hematocrit (37-47) % Hgb O2 Saturation (95-100) % Carboxyhemoglobin (0.4-20.1) %THgb Methemoglobin (0.4-1.5) % Total Hemoglobin (12-16) g/dL Sodium (131-143) mmol/L Potassium (3.5-5.0) mmol/L Glucose (70-115) mg/dL Ionized Calcium (1.1-1.4) mmol/L O2 Delivery Device FiO2 % Relationship Management Lead ID Chloride (98-107) mmol/L Carbon Dioxide (22-29) mmol/L Anion Gap (5-19) BUN (8-23) mg/dL Creatinine (0.5-0.9) mg/dL GFR Calculation Calculated Osmolal ity (285-295) mOsm/k g Lactic Acid (0.5-2.2) mmol/L Calcium (8.5-10.5) mg/dL Total Bilirubin (0.15-1.2) mg/dL AST (0-32) U/L ALT (0-33) U/L Alkaline Phosphata se (35-105) IU/L Creatine Kinase (26-192) U/L Total Protein (6.6-8.7) g/dL Albumin (3.5-5.2) g/dL Globulin (1.3-4.6) g/dL Lipase (13-60) U/L Urine Color Yellow (Yellow) Urine Appearance Clear (CLEAR) Urine pH 6.5 (5-7) Ur Specific Gravit y 1.010 (1.005-1.030) Urine Protein Neg (Negative) Urine Glucose (UA) Norm (Normal) Urine Ketones 1+ H (Negative) Urine Blood Neg (Negative) Urine Nitrate Negative (Negative) Urine Bilirubin 1+ H (NEGATIVE) Urine Urobilinogen 4 H (Negative) mg/dL Ur Leukocyte Stacey ase Negative (Negative) Urine Opiates Scre en Negative (Negative) ng/mL Ur Barbiturates Sc reen Positive H (Negative) ng/mL Ur Phencyclidine S crn Negative (Negative) ng/mL Ur Amphetamines Sc reen Negative (Negative) ng/mL Phenobarbital (10-30) ug/mL U Benzodiazepines Scrn Negative (Negative) ng/mL Urine Cocaine Scre en Negative (Negative) ng/mL U Marijuana (THC) Screen Negative (Negative) ng/mL Ethyl Alcohol (0-10) mg/dL Serum Ketones (Negative) 01/11/20 Range/Units 17:59 WBC (4.0-10.0) 10^3/ uL RBC (4.1-5.3) 10^6/u L Hgb (11.5-15.3) g/dL Hct (37.0-47.0) % MCV (81-99) fL MCH (28.0-34.0) pg MCHC (30.0-36.0) g/dL RDW (12.1-15.1) % Plt Count (130-400) 10^3/c mm MPV (7.4-10.4) fL Neut % (Auto) % Lymph % (Auto) % Elk % (Auto) % Eos % (Auto) % Baso % (Auto) % Neut # (Auto) (1.8-7.7) 10^3/u L Lymph # (Auto) (0.8-4.8) 10^3/u L Elk # (Auto) (0.2-0.9) 10^3/u L Eos # (Auto) (0.0-0.8) 10^3/u L Baso # (Auto) (0.0-0.1) 10^3/u L Nucleated RBC % (a uto) % Nucleated RBCs # /100WBC Specimen Type Sample Site ABG pH (7.35-7.45) ABG pCO2 (35-45) mmHg ABG pO2 (80.0-100.0) mmH g ABG HCO3 (22-26) mmol/L ABG O2 Saturation ABG Base Excess (-2.0-2.0) mmol/ L Brenden Test A-a O2 Gradient (5-10) mmHg Hematocrit (37-47) % Hgb O2 Saturation (95-100) % Carboxyhemoglobin (0.4-20.1) %THgb Methemoglobin (0.4-1.5) % Total Hemoglobin (12-16) g/dL Sodium (131-143) mmol/L Potassium (3.5-5.0) mmol/L Glucose (70-115) mg/dL Ionized Calcium (1.1-1.4) mmol/L O2 Delivery Device FiO2 % Relationship Management Lead ID Chloride (98-107) mmol/L Carbon Dioxide (22-29) mmol/L Anion Gap (5-19) BUN (8-23) mg/dL Creatinine (0.5-0.9) mg/dL GFR Calculation Calculated Osmolal ity (285-295) mOsm/k g Lactic Acid (0.5-2.2) mmol/L Calcium (8.5-10.5) mg/dL Total Bilirubin (0.15-1.2) mg/dL AST (0-32) U/L ALT (0-33) U/L Alkaline Phosphata se (35-105) IU/L Creatine Kinase (26-192) U/L Total Protein (6.6-8.7) g/dL Albumin (3.5-5.2) g/dL Globulin (1.3-4.6) g/dL Lipase (13-60) U/L Urine Color (Yellow) Urine Appearance (CLEAR) Urine pH (5-7) Ur Specific Gravit y (1.005-1.030) Urine Protein (Negative) Urine Glucose (UA) (Normal) Urine Ketones (Negative) Urine Blood (Negative) Urine Nitrate (Negative) Urine Bilirubin (NEGATIVE) Urine Urobilinogen (Negative) mg/dL Ur Leukocyte Stacey ase (Negative) Urine Opiates Scre en (Negative) ng/mL Ur Barbiturates Sc reen (Negative) ng/mL Ur Phencyclidine S crn (Negative) ng/mL Ur Amphetamines Sc reen (Negative) ng/mL Phenobarbital 51.4 H* (10-30) ug/mL U Benzodiazepines Scrn (Negative) ng/mL Urine Cocaine Scre en (Negative) ng/mL U Marijuana (THC) Screen (Negative) ng/mL Ethyl Alcohol (0-10) mg/dL Serum Ketones (Negative) Critical Care Time Critical Care Time: Critical Care Time: Yes Total Critical Care Time: 36 Attestation: This case had a high probability of a clinically significant, sudden, or life threatening deterioration of this patient's condition which required my full and direct attention, intervention and personal management. Discharge Plan Discharge Patient Disposition: Xfer Other Clinical Impression: Overdose Qualifiers: Encounter type: initial encounter Condition: Stable Discharge Date/Time: 01/11/20 22:30 Coding Level of Care Code ED Worm Farmer for Sienna Mckeon
--- NOTE | 2020-01-11 15:17 | CT_ITS ---
WS: [id number] CT HEAD NONCONTRAST HISTORY: AMS TECHNIQUE: Contiguous axial imaging performed through the brain in 2.5 mm imaging. Bone and soft tiss ue windows. Sagittal and coronal reformats reviewed. All CT scans at [facility] use at ast one of these dose optimization techniques: automated exposure control; mA and/or kV adjustment pe r patient size (includes targeted exams where dose is matched to clinical indication); or iterative r econstruction. DLP: 783.81 mGy.cm COMPARISON: 11/28/2019 No acute intracranial hemorrhage, midline shift or mass effect. There is significant bilateral encephalomalacia and atrophy there is no new area of sulcal effacement . Most significant volume loss is involving the RIGHT temporal lobe. No midline shift. Ventricles rem ain normal size. Ventricles: Normal size with no hydrocephalus. No inferior displacement of cerebellar tonsils. Paranasal sinuses: Small mucosal cyst in the floor the LEFT maxillary sinus. Mastoid air cells: Well pneumatized. Calvarium and scalp: Extensive craniotomy sites noted bilaterally. Most significant throughout the RI GHT frontal, temporal and parietal regions. Very similar to prior studies. CT/CT head wo con* [id number] IMPRESSION: 1. No acute intracranial hemorrhage or edema. 2. Multifocal areas of encephalomalacia and post traumatic brain volume loss i s stable.
--- NOTE | 2020-01-11 15:17 | XRR_ITS ---
PROCEDURE INFORMATION: Exam: XR Chest, 1 View Exam date and time: 01/11/2020 3:58 PM Age: 69 years old Clinical indication: Cough and dyspnea; Patient HX: PT unable to give history; Additional info: Dyspnea/cough TECHNIQUE: Imaging protocol: XR of the chest Views: 1 view. COMPARISON: CR XR chest 1V portable [id number] 12/01/2019 8:16 AM FINDINGS: Lungs: Unremarkable. No consolidation. Pleural space: Unremarkable. No pleural effusion. No pneumothorax. Heart/Mediastinum: Unremarkable. No cardiomegaly. Vasculature: Calcification of the thoracic aorta and/or great vessels consistent with atherosclerotic vessel disease. Bones/joints: Unremarkable. XR/XR chest 1V portable [id number] IMPRESSION: No acute findings.
--- NOTE | 2020-01-11 15:17 | ECG_ITS ---
[facility] Test Date: 2020-01-11 Pat Name: Dian Russell Department: Room: Gender: Female [employer]: : 1950 Requested By: Francis Monique Order Number: [id number] Tan MD: Gela Pierre M.D. Measurements Intervals [place] Rate: 82 P: 48 ND: 164 QRS: -44 QRSD: 142 T: -20 QT: 384 QTc: 451 Interpretive Statements SINUS RHYTHM LEFT AXIS DEVIATION [QRS AXIS < -30] RIGHT BUNDLE BRANCH BLOCK [120+ ms QRS DURATION, UPRIGHT V1, 40+ ms S IN I/aVL/V4/V5/V6] LEFT VENTRICULAR HYPERTROPHY AND ST-T CHANGE [VOLTAGE CRITERIA PLUS ST/T ABNORMALITY] Compared to ECG 12/03/2019 12:31:38 Myocardial infarct finding no longer present ST (T wave) deviation still present Electronically Signed On 01-11-2020 23:43:55 CDT by Gela Pierre M.D. [id number]
--- NOTE | 2020-01-11 15:20 | PC.NURSE ---
Read and agree with assessment.
[2020-01-11 15:42] LABS: ABG PCO2 41.8 mmHg (35-45); ABG PH Result 7.43 (7.35-7.45); Alveolar-Arterial Oxygen Gradi 4.8 mmHg (5-10); Arterial Blood Gas Hematocrit 37.1 % (37-47); Blood Gas Allen Test Pos; Blood Gas Sample Type Arterial; Carboxyhemoglobin 1.9 %THgb (0.4-20.1); HCO3 ABG 27.7 mmol/L (22-26); HGB O2 Sat 89.9 % (95-100); Ionized Calcium Level - ABG 1.3 mmol/L (1.1-1.4); Methemoglobin 0.9 % (0.4-1.5); Oxygen Saturation ABG 92.5; PO2 ABG 60.8 mmHg (80.0-100.0); Potassium Level - ABG 3.2 mmol/L (3.5-5.0); Total Hemoglobin 12.1 g/dL (12-16)
[2020-01-11 15:43] LABS: Blood Gas Operator Identificat ED; Blood Gas Sample Site Radial, left
[2020-01-11 16:32] LABS: Ketone (Acetest) Serum Negative (Negative)
[2020-01-11 16:34] LABS: Lactic Sepsis W/Reflex 1.6 mmol/L (0.5-2.2)
[2020-01-11 16:38] VITALS: BP 126/75; PULSE 85; RESP 20; O2SAT 94
[2020-01-11 16:40] LABS: Alanine Aminotransferase 19 U/L (0-33); Albumin Level 3.4 g/dL (3.5-5.2); Alcohol Level < 10 mg/dL (0-10); Alkaline Phosphatase 136 IU/L (35-105); Anion Gap 15.5 (5-19); Aspartate Amino Transferase 27 U/L (0-32); Blood Urea Nitrogen 11 mg/dL (8-23); Calcium 10.3 mg/dL (8.5-10.5); Carbon Dioxide 27 mmol/L (22-29); Chloride 96 mmol/L (98-107); Creatine Phosphokinase 250 U/L (26-192); Creatinine Clr Calc Pharmacy 55.9908; Globulin 4.5 g/dL (1.3-4.6); Glucose 124 mg/dL (65-115); Lipase 18 U/L (13-60); Osmolality Calculated 277 mOsm/kg (285-295); Potassium 3.5 mmol/L (3.5-5.1); Sodium 135 mmol/L (136-145); Total Bilirubin 0.4 mg/dL (0.15-1.2); Total Protein 7.9 g/dL (6.6-8.7)
[2020-01-11 16:57] LABS: Add Urine Microscopic? NO
[2020-01-11 17:01] LABS: Urine Appearance Clear (CLEAR); Urine Color Yellow (Yellow); pH Urine 6.5 (5-7)
[2020-01-11 17:02] LABS: Bilirubin Urine 1+ (NEGATIVE); Blood Urine Neg (Negative); Glucose Urine UA Norm (Normal); Ketones Urine 1+ (Negative); Leukocyte Esterase Urine Negative (Negative); Nitrate Urine Negative (Negative); Protein Urine Neg (Negative); Urobilinogen Urine 4 mg/dL (Negative)
[2020-01-11 17:08] LABS: Amphetamines Screen Urine Negative (Negative); Barbiturates Screen Urine Positive (Negative); Benzodiazepines Screen Urine Negative (Negative); Cocaine Screen Urine Negative (Negative); Opiate Screen Urine Negative (Negative); PCP Screen Urine Negative (Negative); THC Screen Urine Negative (Negative)
[2020-01-11 17:11] LABS: Basophils # 0.1 10^3/uL (0.0-0.1); Basophils % 0.4 %; Eosinophils # 0.2 10^3/uL (0.0-0.8); Eosinophils % 1.7 %; Hematocrit 37.5 % (37.0-47.0); Hemoglobin 11.7 g/dL (11.5-15.3); Lymphocytes # 2.6 10^3/uL (0.8-4.8); Lymphocytes % 18.8 %; Mean Corpuscular HGB Conc 31.2 g/dL (30.0-36.0); Mean Corpuscular Hemoglobin 31.6 pg (28.0-34.0); Mean Corpuscular Volume 101.4 fL (81-99); Mean Platelet Volume 10.3 fL (7.4-10.4); Monocytes # 2.3 10^3/uL (0.2-0.9); Monocytes % 16.6 %; Neutrophils # 8.58 10^3/uL (1.8-7.7); Neutrophils % 62.1 %; Nucleated Red Blood Cells % 0 %; Platelet Count 621 10^3/cmm (130-400); Red Cell Distribution Width 15.3 % (12.1-15.1); White Blood Count 13.9 10^3/uL (4.0-10.0)
[2020-01-11 17:14] VITALS: BP 142/76; PULSE 84; RESP 25; O2SAT 95
[2020-01-11] MEDS: naloxone 0.4 mg/ml SDV IVP (17:14)
--- NOTE | 2020-01-11 17:53 | PC.NURSE ---
18G US guided IV placed by Dr Cazares. Pt told staff you bitches, leave me alone . Pt was assured staff is here to help her.
[2020-01-11 18:13] VITALS: BP 140/68; PULSE 87; RESP 18; O2SAT 94
--- NOTE | 2020-01-11 18:15 | ED_ITS ---
HPI - General Adult General: Chief complaint: General Medical Stated complaint: GEN WEAKNESS Time Seen by Provider: 01/11/20 14:58 History of Present Illness: Location: left, right and lower extremity Quality: aching Relieving factors: none Exacerbating factors: none PFSH ED PFSH: Medical History Anemia -Had been noted to be anemic during last admission, hemoglobin improved compared to discharge -Continue to monitor H&H -Current baseline hemoglobin appears to be around 10 -Given macrocytosis, noted folate (wnl) and B12 levels (low-normal); FOBT negative -has reported hx of prior GI bleed, on PPI and carafate Anxiety and depression -has been referred to [facility] GERD (gastroesophageal reflux disease) GI bleed PTSD (post-traumatic stress disorder) Seizure disorder Seizures -Seizure precautions -phenobarbital resumed -Ativan PRN Stroke Traumatic brain injury Surgical History H/O: hysterectomy History of right knee surgery S/P breast lumpectomy S/P dialysis catheter insertion (11/29/19) Family History Denies family history of Lung disease Hypertension Social History Smoking and tobacco status: heavy tobacco smoker cigarettes [ Other cigarette details: 1 pack/day ] Alcohol intake: never Household members: spouse Housing: Homeless Marital status: Number of children: 2 Number of grandchildren: 6 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 Line flushed and secured. Course Vital Signs: Vital signs: Vital Signs Temperature 97.6 F 01/11/20 14:58 Pulse Rate 84 01/11/20 17:14 Respiratory Rate 25 H 01/11/20 17:14 Blood Pressure 142/76 01/11/20 17:14 Pulse Oximetry 95 01/11/20 17:14 MDM - General Adult Lab Data: Labs: Lab Results 01/11/20 01/11/20 01/11/20 Range/Units 15:32 16:06 16:06 WBC (4.0-10.0) 10^3/ uL RBC (4.1-5.3) 10^6/u L Hgb (11.5-15.3) g/dL Hct (37.0-47.0) % MCV (81-99) fL MCH (28.0-34.0) pg MCHC (30.0-36.0) g/dL RDW (12.1-15.1) % Plt Count (130-400) 10^3/c mm MPV (7.4-10.4) fL Neut % (Auto) % Lymph % (Auto) % Taney % (Auto) % Eos % (Auto) % Baso % (Auto) % Neut # (Auto) (1.8-7.7) 10^3/u L Lymph # (Auto) (0.8-4.8) 10^3/u L Taney # (Auto) (0.2-0.9) 10^3/u L Eos # (Auto) (0.0-0.8) 10^3/u L Baso # (Auto) (0.0-0.1) 10^3/u L Nucleated RBC % (a uto) % Nucleated RBCs # /100WBC Specimen Type Arterial Sample Site Radial, left ABG pH 7.43 (7.35-7.45) ABG pCO2 41.8 (35-45) mmHg ABG pO2 60.8 L (80.0-100.0) mmH g ABG HCO3 27.7 H (22-26) mmol/L ABG O2 Saturation 92.5 ABG Base Excess 3.0 H (-2.0-2.0) mmol/ L Brenden Test Pos A-a O2 Gradient 4.8 L (5-10) mmHg Hematocrit 37.1 (37-47) % Hgb O2 Saturation 89.9 L (95-100) % Carboxyhemoglobin 1.9 (0.4-20.1) %THgb Methemoglobin 0.9 (0.4-1.5) % Total Hemoglobin 12.1 (12-16) g/dL Sodium 137.0 135 L (131-143) mmol/L Potassium 3.2 L 3.5 (3.5-5.0) mmol/L Glucose 123.0 H 124 H (70-115) mg/dL Ionized Calcium 1.3 (1.1-1.4) mmol/L O2 Delivery Device None FiO2 21.0 % It Portfolio Manager ID Ed Chloride 96 L (98-107) mmol/L Carbon Dioxide 27 (22-29) mmol/L Anion Gap 15.5 (5-19) BUN 11 (8-23) mg/dL Creatinine 0.4 L (0.5-0.9) mg/dL GFR Calculation Not Reportable Calculated Osmolal ity 277 L (285-295) mOsm/k g Lactic Acid 1.6 (0.5-2.2) mmol/L Calcium 10.3 (8.5-10.5) mg/dL Total Bilirubin 0.4 (0.15-1.2) mg/dL AST 27 (0-32) U/L ALT 19 (0-33) U/L Alkaline Phosphata se 136 H (35-105) IU/L Creatine Kinase 250 H (26-192) U/L Total Protein 7.9 (6.6-8.7) g/dL Albumin 3.4 L (3.5-5.2) g/dL Globulin 4.5 (1.3-4.6) g/dL Lipase 18 (13-60) U/L Urine Color (Yellow) Urine Appearance (CLEAR) Urine pH (5-7) Ur Specific Gravit y (1.005-1.030) Urine Protein (Negative) Urine Glucose (UA) (Normal) Urine Ketones (Negative) Urine Blood (Negative) Urine Nitrate (Negative) Urine Bilirubin (NEGATIVE) Urine Urobilinogen (Negative) mg/dL Ur Leukocyte Stacey ase (Negative) Urine Opiates Scre en (Negative) ng/mL Ur Barbiturates Sc reen (Negative) ng/mL Ur Phencyclidine S crn (Negative) ng/mL Ur Amphetamines Sc reen (Negative) ng/mL U Benzodiazepines Scrn (Negative) ng/mL Urine Cocaine Scre en (Negative) ng/mL U Marijuana (THC) Screen (Negative) ng/mL Ethyl Alcohol < 10 (0-10) mg/dL Serum Ketones Negative (Negative) 01/11/20 01/11/20 01/11/20 Range/Units 16:41 16:41 17:05 WBC 13.9 H (4.0-10.0) 10^3/ uL RBC 3.70 L (4.1-5.3) 10^6/u L Hgb 11.7 (11.5-15.3) g/dL Hct 37.5 (37.0-47.0) % MCV 101.4 H (81-99) fL MCH 31.6 (28.0-34.0) pg MCHC 31.2 (30.0-36.0) g/dL RDW 15.3 H (12.1-15.1) % Plt Count 621 H (130-400) 10^3/c mm MPV 10.3 (7.4-10.4) fL Neut % (Auto) 62.1 % Lymph % (Auto) 18.8 % Taney % (Auto) 16.6 % Eos % (Auto) 1.7 % Baso % (Auto) 0.4 % Neut # (Auto) 8.58 H (1.8-7.7) 10^3/u L Lymph # (Auto) 2.6 (0.8-4.8) 10^3/u L Taney # (Auto) 2.3 H (0.2-0.9) 10^3/u L Eos # (Auto) 0.2 (0.0-0.8) 10^3/u L Baso # (Auto) 0.1 (0.0-0.1) 10^3/u L Nucleated RBC % (a uto) 0 % Nucleated RBCs # 0.0 /100WBC Specimen Type Sample Site ABG pH (7.35-7.45) ABG pCO2 (35-45) mmHg ABG pO2 (80.0-100.0) mmH g ABG HCO3 (22-26) mmol/L ABG O2 Saturation ABG Base Excess (-2.0-2.0) mmol/ L Brenden Test A-a O2 Gradient (5-10) mmHg Hematocrit (37-47) % Hgb O2 Saturation (95-100) % Carboxyhemoglobin (0.4-20.1) %THgb Methemoglobin (0.4-1.5) % Total Hemoglobin (12-16) g/dL Sodium (131-143) mmol/L Potassium (3.5-5.0) mmol/L Glucose (70-115) mg/dL Ionized Calcium (1.1-1.4) mmol/L O2 Delivery Device FiO2 % It Portfolio Manager ID Chloride (98-107) mmol/L Carbon Dioxide (22-29) mmol/L Anion Gap (5-19) BUN (8-23) mg/dL Creatinine (0.5-0.9) mg/dL GFR Calculation Calculated Osmolal ity (285-295) mOsm/k g Lactic Acid (0.5-2.2) mmol/L Calcium (8.5-10.5) mg/dL Total Bilirubin (0.15-1.2) mg/dL AST (0-32) U/L ALT (0-33) U/L Alkaline Phosphata se (35-105) IU/L Creatine Kinase (26-192) U/L Total Protein (6.6-8.7) g/dL Albumin (3.5-5.2) g/dL Globulin (1.3-4.6) g/dL Lipase (13-60) U/L Urine Color Yellow (Yellow) Urine Appearance Clear (CLEAR) Urine pH 6.5 (5-7) Ur Specific Gravit y 1.010 (1.005-1.030) Urine Protein Neg (Negative) Urine Glucose (UA) Norm (Normal) Urine Ketones 1+ H (Negative) Urine Blood Neg (Negative) Urine Nitrate Negative (Negative) Urine Bilirubin 1+ H (NEGATIVE) Urine Urobilinogen 4 H (Negative) mg/dL Ur Leukocyte Stacey ase Negative (Negative) Urine Opiates Scre en Negative (Negative) ng/mL Ur Barbiturates Sc reen Positive H (Negative) ng/mL Ur Phencyclidine S crn Negative (Negative) ng/mL Ur Amphetamines Sc reen Negative (Negative) ng/mL U Benzodiazepines Scrn Negative (Negative) ng/mL Urine Cocaine Scre en Negative (Negative) ng/mL U Marijuana (THC) Screen Negative (Negative) ng/mL Ethyl Alcohol (0-10) mg/dL Serum Ketones (Negative) Discharge Plan Discharge Prescriptions: No Action potassium chloride 10 mEq Tablet Extended Release 40 meq PO DAILY Qty: 30 RF: 0 levofloxacin 750 mg Tablet 750 mg PO DAILY Qty: 7 RF: 0 Lactobacillus acidoph-L.bulgar [Floranex] 1 million cell Tablet 1 tab PO BID Qty: 30 RF: 0 phenobarbital 97.2 mg tablet 48.6 mg PO BID Qty: 60 RF: 0 hydrocodone-acetaminophen [Bergoo] 5-325 mg tablet 1 tab PO Q8H PRN (Reason: pain) 30 Days Qty: 30 RF: 0 sucralfate [Carafate] 1 gram tablet 1 gm PO BID 30 Days Qty: 60 RF: 0 pantoprazole [Protonix] 40 mg tablet,delayed release (DR/EC) 40 mg PO BID 30 Days Qty: 60 RF: 0 diclofenac sodium 75 mg tablet,delayed release (DR/EC) 75 mg PO Q12H PRN (Reason: pain) Qty: 20 RF: 0 Coding Level of Care Code ED Senior Windows Systems Administrator for Sienna Mckeon
[2020-01-11 19:55] VITALS: BP 112/67; PULSE 85; RESP 25; O2SAT 92
== END 2020-01-11 22:30 | disposition other institution (70) ==
PROVIDERS: Family Medicine; Emergency Provider Emergency Medicine
DX: T65.91XA Toxic effect of unspecified substance, accidental (unintentional), initial encounter (principal); Z86.73 Personal history of transient ischemic attack (TIA), and cerebral infarction without residual deficits; F17.210 Nicotine dependence, cigarettes, uncomplicated
CPT/HCPCS: 12345; 36415; 36573; 36600; 70450; 71045; 80051; 80053; 80184; 80306; 80307; 81003; 82009; 82550; 82810; 83605; 83690; 83986; 85025; 93005; 96374; 96375; 99284; 99285; J2310